=== PATIENT | male | born 1960 | race Caucasian/White ===

== ENCOUNTER → 2016-12-18 | Outpatient (CLI) | payer OTHER ==
[2016-12-18 12:15] VITALS: BP 170/96; PULSE 101; RESP 16; TEMP 98.1
--- NOTE | 2016-12-18 12:56 | P.PN ---
Subjective This is follow-up visit for this patient with a history of severe and chronic right knee pain and, right shoulder pain secondary to osteoarthritis of the right knee, and he was seen Dr. Mathis orthopedic surgeon and he recommended right total knee replacement, patient had injection in the knee, and this provided her with temporary relief, and is currently on pain medications 1- [place] 7.5/325 every 6 hours 2- naproxen 500 mg twice a day 3- voluntaren gel Patient denies any side effects of the medication, denies excessive drowsiness or sleepiness, denies suicidal ideation, and reports that the current pain medication is NOT helping To control the pain and improve activity of daily living Physical Examinations : 1-[place] : Cooperative , not in acute distress . 2-HEENT : nech ; supple , no Lymphadenopathy , no Thyromegaly , normal thyroid size . eyes : no ptosis , no icterus, no photophobia . ENT : normal of hearing , normal oropharynx , no Thrush . 3- Respiratory : Chest clear to auscultations Bilaterally , no wheezing , no Rhonchi . 4- Cardiovascular : regular rate and rhythem , S1 , S2 , no S3 , no S4. 5- Gastrointestinal : abdomen soft no tenderness , bowel sounds positive all four quadrents , no organomegally . 6- Genitourinary : Defferred . 7- neurologic : Cranial nerve II to XII intact , no focal neurological deffecit . 8-psychatric : alert , oriented X 3 , appropriate affect , intact judgment and insight . 9-Lymphatic : no Lymphadenopathy . 10- musculoskeltal : Decreased range of motion,(flexion/extension) in the right knee secondary to pain, and tenderness over the medial aspect of the right knee Assessment and plan = -Chronic right knee pain secondary to osteoarthritis -chronic and current use of high-risk medication (Opioids). The patient was counseled about risk of opioid use, psychological risk associated with opioids and was orally counseled to not overuse , abuse , divert ,or sell dictations to take medications as prescribed only , and to restore medication in safe location , and patient counseled against driving while using narcotic medications, and also not to use alcohol or any illicit recreational drugs the patient's verbalized understanding that the lack of compliance will result in failure to renew narcotic prescription and possible discharge from the clinic - diagnoses, prognosis, and treatment options including but not limited to physical therapy, surgical interventions, interventional therapies and medication management including narcotics and adjuvant medication were discussed with the patient and all questions answered to the patient's satisfaction. -medication refile =1- [place] 7.5/325 every 6 hours dispense 60 with 1 refill 2- naproxen 500 mg dispense 60 with 1 refill 3-naproxen gel 100 mg dispense refill -procedure= patient could benefit from diagnostic genitourinary nerve block and if it is positive we can proceed with the radiofrequency ablation of the right genicular nerves Objective - Vital Signs Vital signs: Vital Signs Temp 98.1 F 12/18/16 12:03 Pulse 101 H 12/18/16 12:03 Resp 16 12/18/16 12:03 BP 170/96 12/18/16 12:03 Pulse Ox Intake & Output 12/17/16 12/18/16 12/18/16 18:59 06:59 18:59 Weight 72.575 kg
== END | disposition home or self-care (01) ==
LOC: PNWHC3 11:31
PROVIDERS: ATTEND Specialist
DX: M17.11 Unilateral primary osteoarthritis, right knee (principal); Z79.891 Long term (current) use of opiate analgesic
CPT/HCPCS: 99211

== ENCOUNTER 2016-12-23 06:18 | Day surgery (SDC) | payer OTHER ==
[2016-12-19 11:21] VITALS: BMI 27.4
[~2016-12-23 06:18] MED LIST: LACTATED RINGERS 1,000 ML IV SCH
[2016-12-23 06:43] VITALS: RESP 18; TEMP 98
[2016-12-23] MEDS ORDERED: MIDAZOLAM 2 MG/2 ML VIAL ONE (07:52)
[2016-12-23] MEDS ORDERED: fentaNYL (PF) 50 MCG/ML 2 ML AMP ONE (07:52)
[2016-12-23] MEDS ORDERED: TRIAMCINOLONE ACETONIDE 40 MG/ML 1 ML VIAL ONE (07:52)
[2016-12-23] MEDS ORDERED: BUPIVACAINE (PF) 0.75% 30 ML VIAL ONE (07:52)
--- NOTE | 2016-12-23 08:19 | P.PCN ---
Date of Procedure: 12/23/16 Procedure(s) Performed: Operation= Right genicular nerves block under fluoroscopy guidance. (Total of 3 nerves were blocked ) Preoperative diagnoses=1- genicular neuralgia. 2-persistent knee pain secondary to knee osteoarthritis Postoperative diagnoses= same as preop. Condition= stable. Complications=none. Anesthesia= IV sedation with Versed 2 mg and fentanyl 100 g, and local infiltration with lidocaine 1% 3 mL. Description of the procedure= risk and benefit from the procedure discussed with the patient and he agreed with the preceding including but not limited to risk of infection and bleeding not complete pain relief and ALLERGIC reaction to the medication, patient taken to the operating room placed in supine position or standard monitors applied to the patient then after induction of anesthesia, the area prepped with chlorhexidine 3, then under fluoroscopy guidance and after using lidocaine 1% for skin and subcutaneous tissue infiltrations using 22-gauge Quincke-type spinal needle first needle advanced and placed at the superior medial epicondyle of the Right femur and the needle tip was in direct contact with the periosteum then 2 ML of Marcaine 0.5% mixed with 10 mg of Kenalog injected after negative aspiration, there was no paresthesia during the injection, then another 22 gauge spinal needle advanced at the superior lateral epicondyle of the Right femur, and the needle was in direct contact with the periosteum of the lateral epicondyle, then after negative aspiration for heme, and there was no paresthesia during the injection total of 2 ML of Marcaine 0.5% mixed with 10 mg of Kenalog injected after negative aspiration, and then another needle advanced and placed at the distal medial epicondyle of the Right tibia ,and the needle tip was placed at the direct contact on the periosteum of the medial epicondyle of the Right tibia, and then after negative aspiration for heme and there was no paresthesia during the injection 2 ML of Marcaine 0.5% mixed with 20 mg of Kenalog injected after negative aspiration patient tolerated the procedure well without any complication and will follow up with the pain clinic in a few weeks
[2016-12-23 08:41] VITALS: BP 130/80; PULSE 64
--- NOTE | 2016-12-23 10:20 | FL ---
Fluoroscopy HISTORY: Pain 16 seconds fluoroscopy time supplied to the referring clinician. 4 intraoperative C-arm images docum ent the procedure. See dictated report from anesthesia.
== END 2016-12-23 08:51 | disposition home or self-care (01) ==
LOC: ORPAIN 06:18
PROVIDERS: ATTEND Specialist
DX: G58.8 Other specified mononeuropathies (principal); M17.9 Osteoarthritis of knee, unspecified; Z88.0 Allergy status to penicillin
CPT/HCPCS: 64450; J2250; J3301; J3010

== ENCOUNTER 2017-01-19 06:19 | Day surgery (SDC) | payer OTHER ==
[2017-01-15 16:09] VITALS: BMI 27.4
[2017-01-19] MEDS ORDERED: LACTATED RINGERS 1,000 ML IV SCH (07:15)
[2017-01-19 07:17] VITALS: RESP 16; TEMP 97.7
[2017-01-19] MEDS ORDERED: MIDAZOLAM 2 MG/2 ML VIAL ONE (08:09)
[2017-01-19] MEDS ORDERED: BUPIVACAINE (PF) 0.5% 30 ML VIAL ONE (08:09)
[2017-01-19] MEDS ORDERED: fentaNYL (PF) 50 MCG/ML 2 ML AMP ONE (08:09)
[2017-01-19] MEDS ORDERED: TRIAMCINOLONE ACETONIDE 40 MG/ML 1 ML VIAL ONE (08:09)
[2017-01-19] MEDS ORDERED: IV FLUID CONTINUATION 1,000 ML IV ONE (08:32)
[2017-01-19 08:50] VITALS: BP 101/75; PULSE 78
--- NOTE | 2017-01-19 09:15 | P.PCN ---
Date of Procedure: 01/19/17 Surgeon: Anthony Baker Pathology: none sent Condition: stable Disposition: PACU Description of Procedure: PREOPERATIVE DIAGNOSIS: chronic knee pain due to OA; genicular neuralgia POSTOPERATIVE DIAGNOSIS: same PROCEDURE DESCRIPTION: Patient presents for right knee genicular NB under fluoroscopy. The procedure is performed using fluoroscopic guidance during needle placement to assure proper position and maximize safety. No use of blood thinners. ANESTHESIA: Local with 1% lidocaine; conscious sedation EBL: Minimal PROCEDURE INDICATION: Patient with persistent knee pain due to genicular neuralgia and knee osteoarthritis, here for diagnostic genicular NB. Pt does not take any blood thinning medications. PROCEDURE DESCRIPTION: The patient was seen and identified in the preoperative area. Risks, benefits, complications, and alternatives were discussed with the patient (including but not limited to incomplete pain relief, bleeding, infection, nerve damage, and allergies to medications), the patient agreed to proceed with the procedure and signed the consent after all questions were answered. Patient was taken to the OR and time out was completed to verify proper patient, position, laterality of pain, and allergies. Pt was placed in the supine position and a pillow was placed under the right knee to induce flexion. The right knee was prepped and draped in the usual sterile fashion. Using AP fluoroscopic guidance, the right knee was identified as were the areas of the superior medial epicondyle of the right femur, superior lateral epicondyle of the right femur, and distal medial epicondyle of the right tibia. Using lidocaine 1% for skin and subcutaneous tissue infiltrations, these three areas were accessed using 22-gauge Quincke-type 3.5-inch spinal needles and the needle tips were placed directly on the periosteum at all three locations. Lateral view fluoroscopy demonstrated that the needles were approximately long term through the leg and the tips of the needles were at roughly the long term point of the bone on both the femur and the tibia. After negative aspiration for heme and in the absence of paresthesias, 2 ml of the 6 ml mixture of 5 ml 0.5% PF bupivacaine and 40 mg Kenalog was injected at each site. [place] were withdrawn intact. At the end of the procedure, the skin was cleansed and bandages were applied. COMPLICATIONS: None. DISPOSITION/PLAN: The patient taken to the recovery area after the procedure in a stable condition for observation. Patient was reexamined prior to discharge and there were no issues. Patient was discharged home, accompanied by an adult, after meeting discharged criteria. Discharge instructions were give to the patient by the staff. Patient was specifically instructed not to drive today and to rest for the rest of the day. If he gets relief from this procedure, he will follow up for right genicular RFA.
--- NOTE | 2017-01-19 12:02 | FL ---
Fluoroscopy HISTORY: Pain 6 seconds fluoroscopy time supplied to the referring clinician. 2 intraoperative C-arm images docume nt the procedure. See dictated report from anesthesia.
== END 2017-01-19 09:22 | disposition home or self-care (01) ==
LOC: ORPAIN 06:19
PROVIDERS: ATTEND Anesthesiology
DX: Z91.09 Other allergy status, other than to drugs and biological substances (principal)
CPT/HCPCS: 64450; 99152; J2250; J3301; J3010

== ENCOUNTER → 2017-02-11 | Outpatient (CLI) | payer OTHER ==
[2017-02-11 13:18] VITALS: BP 158/100; PULSE 88; RESP 18; TEMP 98.4
--- NOTE | 2017-02-11 13:38 | P.PN ---
Subjective This is follow-up visit for this patient with a history of severe and chronic right knee pain, diagnosed with osteoarthritis Of the right knee,( right genicular nerve neuralgia) with done right genicular nerves block x2 and he had more than 50% Improvement in his right knee pain , and is currently on pain medications [place] 10/325 every 12 hours Naproxen 500 mg twice a day when necessary, we'll tallying gently applied to the right Patient denies any side effects of the medication, denies excessive drowsiness or sleepiness, denies suicidal ideation, and reports that the current pain medication is helping To control the pain and improve activity of daily living Physical Examinations : 1-[place] : Cooperative , not in acute distress . 2-HEENT : nech ; supple , no Lymphadenopathy , no Thyromegaly , normal thyroid size . eyes : no ptosis , no icterus, no photophobia . ENT : normal of hearing , normal oropharynx , no Thrush . 3- Respiratory : Chest clear to auscultations Bilaterally , no wheezing , no Rhonchi . 4- Cardiovascular : regular rate and rhythem , S1 , S2 , no S3 , no S4. 5- Gastrointestinal : abdomen soft no tenderness , bowel sounds positive all four quadrents , no organomegally . 6- Genitourinary : Defferred . 7- neurologic : Cranial nerve II to XII intact , no focal neurological deffecit . 8-psychatric : alert , oriented X 3 , appropriate affect , intact judgment and insight . 9-Lymphatic : no Lymphadenopathy . 10- musculoskeltal : exams of the cervical spine = motor strength normal bilateral upper extremities facet loading test cervical area positive. exams of the Lumber spine = motor strength lower extremities ,thigh and legs .5/5 deep tendon reflexes : normal Knee Jerk , normal ankle Jerk . lumber facet Loading Test positive strait leg raising test positive at 30 degree , RT ,LT , Fabere test positive RT and positive LT . Range of motion: Range of motion in flexion of the lumbar spine 30 degrees Range of motion range of motion of extension of the lumbar spine 10 Sever tenderness over the Sacroiliac joint on the Right , and Left side Assessment and plan = On the right knee pain secondary to osteoarthritis of the right knee , patient had good results after the genicular nerves block x2 He will be good candidate to have radiofrequency ablation of the right genicular nerves - chronic and current use of high-risk medication (Opioids). The patient was counseled about risk of opioid use, psychological risk associated with opioids and was orally counseled to not overuse , divert,or sell dictations to take medications as prescribed only , and to restore medication in safe location , and the patient counseled against driving while using narcotic medications, and also not to use alcohol or any illicit recreational drugs, the patient's verbalized understanding that the lack of compliance will result in failure to renew narcotic prescription and possible discharge from the clinic - diagnoses, prognosis, and treatment options including but not limited to physical therapy, surgical interventions, interventional therapies , and medication management including narcotics and adjuvant medication were discussed with the patient and all The questions answered -medication management =1-[place] 10/325 every 12 hours dispense 60 with 1 refill. 2-naproxen 500 mg twice a day dispense 60 with one refill 3-voltaren gel -procedure= radiofrequency ablation right genicular nerves under fluoroscopy guidance Objective - Vital Signs Vital signs: Vital Signs Temp 98.4 F 02/11/17 13:10 Pulse 88 02/11/17 13:10 Resp 18 02/11/17 13:10 BP 158/100 02/11/17 13:10 Pulse Ox Intake & Output 02/10/17 02/11/17 02/11/17 18:59 06:59 18:59 Weight 72.575 kg
== END ==
LOC: PNWHC3 12:06
PROVIDERS: ATTEND Specialist
DX: M17.11 Unilateral primary osteoarthritis, right knee (principal); G89.29 Other chronic pain; Z79.891 Long term (current) use of opiate analgesic
CPT/HCPCS: 99211

== ENCOUNTER → 2017-04-08 | Outpatient (CLI) | payer OTHER ==
[2017-04-08 14:41] VITALS: BP 160/97; PULSE 90; RESP 16
--- NOTE | 2017-04-08 21:26 | P.PN ---
Subjective Principal diagnosis: This is follow-up visit for this patient with a history of severe and chronic right knee pain, we have done interventional pain management injection, , RFA of the right genicular nerves He had some benefit , pain improved but he continued to have right knee pain and is currently on pain medications 1-naproxen 500 mg twice a day when necessary 2-[place] 7.5/325 every 8 hours 3-Voltaren gel Patient denies any side effects of the medication, denies excessive drowsiness or sleepiness, denies suicidal ideation, and reports that the current pain medication is helping To control the pain and improve activity of daily living Patient denies any motor or sensory deficit , patient denies any fever or night sweats, denies any change in the bowel movements or urination Physical Examinations : 1-Constitutiona : Cooperative , not in acute distress . 2-HEENT : nech ; supple , no Lymphadenopathy , no Thyromegaly , normal thyroid size . eyes : no ptosis , no icterus, no photophobia . ENT : normal of hearing , normal oropharynx , no Thrush . 3- Respiratory : Chest clear to auscultations Bilaterally , no wheezing , no Rhonchi . 4- Cardiovascular : regular rate and rhythem , S1 , S2 , no S3 , no S4. 5- Gastrointestinal : abdomen soft no tenderness , bowel sounds positive all four quadrents , no organomegally . 6- Genitourinary : Defferred . 7- neurologic : Cranial nerve II to XII intact , no focal neurological deffecit . 8-psychatric : alert , oriented X 3 , appropriate affect , intact judgment and insight . 9-Lymphatic : no Lymphadenopathy . 10- musculoskeltal : exams of the Lumber spine = motor strength lower extremities ,thigh and legs .5/5 Flexion and extension of the right knee associated with pain. Assessment and plan = - Chronic low back pain secondary to lumbar degenerative disc disease , lumbar spondylosis with facet arthropathy without myelopathy , - chronic and current use of high-risk medication (Opioids). The patient was counseled about risk of opioid use, psychological risk associated with opioids and was orally counseled to not overuse , divert,or sell dictations to take medications as prescribed only , and to restore medication in safe location , and the patient counseled against driving while using narcotic medications, and also not to use alcohol or any illicit recreational drugs, the patient's verbalized understanding that the lack of compliance will result in failure to renew narcotic prescription and possible discharge from the clinic - diagnoses, prognosis, and treatment options including but not limited to physical therapy, surgical interventions, interventional therapies , and medication management including narcotics and adjuvant medication were discussed with the patient, prescription refilled for [place] 7.5/325 every 6 hours dispensed 60 with 1 refill, naproxen 500 mg dispense 60 with 1 refill, and carrying gel 2 g to the right knee twice a day with one refill, and he will follow up with the pain clinic in 2 months Objective - Vital Signs Vital signs: Vital Signs Temp Pulse 90 04/08/17 14:35 Resp 16 04/08/17 14:35 BP 160/97 04/08/17 14:35 Pulse Ox 94 L 04/08/17 14:35 Intake & Output 04/08/17 04/08/17 04/09/17 06:59 18:59 06:59 Weight 72.575 kg
== END | disposition home or self-care (01) ==
LOC: PNWHC3 13:46
PROVIDERS: ATTEND Specialist
DX: M51.36 Other intervertebral disc degeneration, lumbar region (principal); M47.816 Spondylosis without myelopathy or radiculopathy, lumbar region; M46.86 Other specified inflammatory spondylopathies, lumbar region
CPT/HCPCS: 99211

== ENCOUNTER → 2017-06-03 | Outpatient (CLI) | payer OTHER ==
[2017-06-03 11:31] VITALS: BP 171/104; PULSE 95; RESP 16; TEMP 97.7
--- NOTE | 2017-06-03 11:44 | P.PN ---
Progress Note - Text Patient returns for follow-up for chronic knee pain without radiation. Patient recently underwent right genicular RFA, which provided some relief for roughly 1 month's interval. Patient continues on [place], naproxen, and Voltaren gel medications for pain with good relief. Patient denies adverse drug effects from medications. Today, pt denies new-onset weakness, bowel/bladder incontinence, or any other signs or symptoms of cauda equina syndrome. There are no signs of acute intoxication, and no indications of medication diversion or overuse. In addition to above, 13-point review of systems is also negative for chest pain , shortness of breath, changes in vision, changes in hearing, new onset weakness , abdominal pain, diarrhea, extreme fatigue, malaise, fever, skin changes, homicidal or suicidal ideation, or bowel or bladder incontinence. Vital Signs: Reviewed in EMR Gen: WDWN, AAOx3, NAD HEENT: NCAT, EOMI, hearing grossly normal Pulm: resp unlabored Neck: supple, trachea midline Lower extremity: decreased ROM R knee flexion and extension due to pain Neuro: CN II-XII grossly intact, muscle strength lower extremities PRESERVED Imaging: Reviewed in EMR Assessment: 1. knee OA 2. genicular neuralgia 3. chronic pain syndrome Plan: 1. Explanation: Opioid and psychological risk scores were reviewed. Diagnoses , prognoses, and multiple treatment options including but not limited to physical therapy, interventional therapies, adjuvant medical therapies, narcotic medication therapies, and surgery were discussed with the patient and all questions were answered to the patient's satisfaction. 2. Opioid agreement: Patient has previously signed narcotic agreement, and was orally counseled to not overuse, abuse, divert, or cell medications, and to take them as prescribed by only 1 healthcare provider. The patient was also counseled to store opioid medications in a safe and preferably locked location. Patient was also counseled against driving or operating heavy equipment while using narcotic medications and also to not use alcohol or any illicit or recreational drugs. The patient verbalized understanding that lack of compliance with any of the above and likely result in failure to renew narcotic prescriptions, possible discharge from the clinic, and possible legal ramifications thereafter if indicated. 3. Counseling: The patient was counseled extensively on SMOKING CESSATION, BODY MASS INDEX, EXERCISE. Specifically, the patient was instructed regarding the importance of smoking cessation, weight control, and exercise in the context of both chronic pain and overall health. 4. Procedures: none for now 5. Consultations: None 6. Investigations: UDS today 7. Medications: [place] 7.5/325 #60 with no refills, refilled naproxen and Voltaren gel with one refill 8. Disposition: f/u for re-eval in 4 weeks PQRS measures: 1-Patient's medications are documented in the chart. 2-Tobacco use is positive, counseling given 3-Patient has not had a pneumococcal vaccine. 4-Advanced care planning discussed, patient unable to give. 5-Opioid contract signed with the patient. 6-Pain positive, follow-up visit or procedure scheduled 7-Patient's blood pressure measured and documented, and patient will follow up with the primary care due to hypertension. 8-Patient's weight was measured, and body mass index ABOVE the normal limits, and counseling was done. Patient instructed to follow up with PCP. 9-Patient WAS identified as an unhealthy alcohol user and counseled not to use opioids with alcohol.
== END ==
LOC: PNWHC3 10:56
PROVIDERS: ATTEND Anesthesiology
DX: M17.9 Osteoarthritis of knee, unspecified (principal); Z79.891 Long term (current) use of opiate analgesic; Z79.899 Other long term (current) drug therapy
CPT/HCPCS: 80307; G0480; G0463; 80356; 99211

== ENCOUNTER → 2017-07-01 | Outpatient (CLI) | payer OTHER ==
[2017-07-01 14:20] VITALS: BP 146/95; PULSE 80; RESP 18; TEMP 98.5
--- NOTE | 2017-07-01 14:44 | P.PN ---
Progress Note - Text Patient returns for follow-up for chronic knee pain without radiation. Patient underwent right genicular RFA in February, which provided some relief for roughly 1 month's interval. Patient continues on [place], naproxen, and Voltaren gel medications for pain with good relief. Patient denies adverse drug effects from medications. Today, pt denies new-onset weakness, bowel/bladder incontinence, or any other signs or symptoms of cauda equina syndrome. There are no signs of acute intoxication, and no indications of medication diversion or overuse. In addition to above, 13-point review of systems is also negative for chest pain , shortness of breath, changes in vision, changes in hearing, new onset weakness , abdominal pain, diarrhea, extreme fatigue, malaise, fever, skin changes, homicidal or suicidal ideation, or bowel or bladder incontinence. Vital Signs: Reviewed in EMR Gen: WDWN, AAOx3, NAD HEENT: NCAT, EOMI, hearing grossly normal Pulm: resp unlabored Neck: supple, trachea midline Lower extremity: decreased ROM R knee flexion and extension due to pain Neuro: CN II-XII grossly intact, muscle strength lower extremities PRESERVED Imaging: Reviewed in EMR Assessment: 1. knee OA 2. genicular neuralgia 3. chronic pain syndrome Plan: 1. Explanation: Opioid and psychological risk scores were reviewed. Diagnoses , prognoses, and multiple treatment options including but not limited to physical therapy, interventional therapies, adjuvant medical therapies, narcotic medication therapies, and surgery were discussed with the patient and all questions were answered to the patient's satisfaction. 2. Opioid agreement: Patient has previously signed narcotic agreement, and was orally counseled to not overuse, abuse, divert, or cell medications, and to take them as prescribed by only 1 healthcare provider. The patient was also counseled to store opioid medications in a safe and preferably locked location. Patient was also counseled against driving or operating heavy equipment while using narcotic medications and also to not use alcohol or any illicit or recreational drugs. The patient verbalized understanding that lack of compliance with any of the above and likely result in failure to renew narcotic prescriptions, possible discharge from the clinic, and possible legal ramifications thereafter if indicated. 3. Counseling: The patient was counseled extensively on SMOKING CESSATION, BODY MASS INDEX, EXERCISE. Specifically, the patient was instructed regarding the importance of smoking cessation, weight control, and exercise in the context of both chronic pain and overall health. 4. Procedures: none for now 5. Consultations: Dr. Haley, possible TKA 6. Investigations: UDS negative, but appropriate 7. Medications: [place] 7.5/325 #60 with one refill, refilled naproxen and Voltaren gel with one refill; prescribed cane for knee OA 8. Disposition: f/u for re-eval in 8 weeks after appointment with orthopedic surgeon PQRS measures: 1-Patient's medications are documented in the chart. 2-Tobacco use is positive, counseling given 3-Patient has not had a pneumococcal vaccine. 4-Advanced care planning discussed, patient unable to give. 5-Opioid contract signed with the patient. 6-Pain positive, follow-up visit or procedure scheduled 7-Patient's blood pressure measured and documented, and patient will follow up with the primary care due to hypertension. 8-Patient's weight was measured, and body mass index ABOVE the normal limits, and counseling was done. Patient instructed to follow up with PCP. 9-Patient WAS identified as an unhealthy alcohol user and counseled not to use opioids with alcohol.
== END | disposition home or self-care (01) ==
LOC: PNWHC3 13:57
PROVIDERS: ATTEND Anesthesiology
DX: M17.10 Unilateral primary osteoarthritis, unspecified knee (principal); G58.8 Other specified mononeuropathies; G89.4 Chronic pain syndrome
CPT/HCPCS: 99211

== ENCOUNTER → 2017-08-26 | Outpatient (CLI) | payer OTHER ==
[2017-08-26 13:29] VITALS: BP 166/103; PULSE 109; RESP 18; TEMP 98.5
--- NOTE | 2017-08-26 13:38 | P.PN ---
Progress Note - Text Progress Note Date: 08/26/17 Patient returns for follow-up for chronic knee pain without radiation. Patient underwent right genicular RFA in February, which provided some relief for roughly 1 month's interval. Patient continues on [place], naproxen, and Voltaren gel medications for pain with good relief; patient has not yet seen an orthopedic surgeon because he has not been able to find one who accepts his insurance. Patient denies adverse drug effects from medications. Today, pt denies new- onset weakness, bowel/bladder incontinence, or any other signs or symptoms of cauda equina syndrome. There are no signs of acute intoxication, and no indications of medication diversion or overuse. In addition to above, 13-point review of systems is also negative for chest pain , shortness of breath, changes in vision, changes in hearing, new onset weakness , abdominal pain, diarrhea, extreme fatigue, malaise, fever, skin changes, homicidal or suicidal ideation, or bowel or bladder incontinence. Vital Signs: Reviewed in EMR Gen: WDWN, AAOx3, NAD HEENT: NCAT, EOMI, hearing grossly normal Pulm: resp unlabored Neck: supple, trachea midline Lower extremity: decreased ROM R knee flexion and extension due to pain, with greater pain in flexion Neuro: CN II-XII grossly intact, muscle strength lower extremities PRESERVED Imaging: Reviewed in EMR Assessment: 1. knee OA 2. genicular neuralgia 3. chronic pain syndrome Plan: 1. Explanation: Opioid and psychological risk scores were reviewed. Diagnoses , prognoses, and multiple treatment options including but not limited to physical therapy, interventional therapies, adjuvant medical therapies, narcotic medication therapies, and surgery were discussed with the patient and all questions were answered to the patient's satisfaction. 2. Opioid agreement: Patient has previously signed narcotic agreement, and was orally counseled to not overuse, abuse, divert, or cell medications, and to take them as prescribed by only 1 healthcare provider. The patient was also counseled to store opioid medications in a safe and preferably locked location. Patient was also counseled against driving or operating heavy equipment while using narcotic medications and also to not use alcohol or any illicit or recreational drugs. The patient verbalized understanding that lack of compliance with any of the above and likely result in failure to renew narcotic prescriptions, possible discharge from the clinic, and possible legal ramifications thereafter if indicated. 3. Counseling: The patient was counseled extensively on SMOKING CESSATION, BODY MASS INDEX, EXERCISE. Specifically, the patient was instructed regarding the importance of smoking cessation, weight control, and exercise in the context of both chronic pain and overall health. 4. Procedures: none for now 5. Consultations: orthopedic surgery, possible TKA 6. Investigations: repeat UDS today 7. Medications: [place] 7.5/325 #60 with one refill, refilled naproxen and Voltaren gel with two refills 8. Disposition: f/u for re-eval in 8 weeks after appointment with orthopedic surgeon PQRS measures: 1-Patient's medications are documented in the chart. 2-Tobacco use is positive, counseling given 3-Patient has not had a pneumococcal vaccine. 4-Advanced care planning discussed, patient unable to give. 5-Opioid contract signed with the patient. 6-Pain positive, follow-up visit or procedure scheduled 7-Patient's blood pressure measured and documented, and patient will follow up with the primary care due to hypertension. 8-Patient's weight was measured, and body mass index ABOVE the normal limits, and counseling was done. Patient instructed to follow up with PCP. 9-Patient WAS identified as an unhealthy alcohol user and counseled not to use opioids with alcohol.
== END | disposition home or self-care (01) ==
LOC: PNWHC3 13:14
PROVIDERS: ATTEND Anesthesiology
DX: M17.12 Unilateral primary osteoarthritis, left knee (principal); M17.11 Unilateral primary osteoarthritis, right knee; G58.8 Other specified mononeuropathies; G89.4 Chronic pain syndrome; Z79.891 Long term (current) use of opiate analgesic
CPT/HCPCS: 80307; G0480 ×2; G0463; 80356; 80364; 99211

== ENCOUNTER → 2017-10-21 | Outpatient (CLI) | payer OTHER ==
--- NOTE | 2017-10-21 13:49 | P.PN ---
Progress Note - Text Progress Note Date: 10/21/17 Patient returns for follow-up for chronic knee pain without radiation. Patient underwent right genicular RFA in February, which provided some relief for roughly 1 month's interval. Patient continues on [place], naproxen, and Voltaren gel medications for pain with good relief; patient is now on a waiting list to see an orthopedic surgeon for his knee, as Dr. Haley' office does not accept his insurance. Patient denies adverse drug effects from medications. Today, pt denies new-onset weakness, bowel/bladder incontinence, or any other signs or symptoms of cauda equina syndrome. There are no signs of acute intoxication, and no indications of medication diversion or overuse. In addition to above, 13-point review of systems is also negative for chest pain , shortness of breath, changes in vision, changes in hearing, new onset weakness , abdominal pain, diarrhea, extreme fatigue, malaise, fever, skin changes, homicidal or suicidal ideation, or bowel or bladder incontinence. Vital Signs: Reviewed in EMR Gen: WDWN, AAOx3, NAD HEENT: NCAT, EOMI, hearing grossly normal Pulm: resp unlabored Neck: supple, trachea midline Lower extremity: decreased ROM R knee flexion and extension due to pain Neuro: CN II-XII grossly intact, muscle strength lower extremities PRESERVED Imaging: Reviewed in EMR Assessment: 1. knee OA 2. genicular neuralgia 3. chronic pain syndrome Plan: 1. Explanation: Opioid and psychological risk scores were reviewed. Diagnoses , prognoses, and multiple treatment options including but not limited to physical therapy, interventional therapies, adjuvant medical therapies, narcotic medication therapies, and surgery were discussed with the patient and all questions were answered to the patient's satisfaction. 2. Opioid agreement: Patient has previously signed narcotic agreement, and was orally counseled to not overuse, abuse, divert, or cell medications, and to take them as prescribed by only 1 healthcare provider. The patient was also counseled to store opioid medications in a safe and preferably locked location. Patient was also counseled against driving or operating heavy equipment while using narcotic medications and also to not use alcohol or any illicit or recreational drugs. The patient verbalized understanding that lack of compliance with any of the above and likely result in failure to renew narcotic prescriptions, possible discharge from the clinic, and possible legal ramifications thereafter if indicated. 3. Counseling: The patient was counseled extensively on SMOKING CESSATION, BODY MASS INDEX, EXERCISE. Specifically, the patient was instructed regarding the importance of smoking cessation, weight control, and exercise in the context of both chronic pain and overall health. 4. Procedures: repeat right genicular RFA 5. Consultations: orthopedic surgery, possible TKA 6. Investigations: none 7. Medications: [place] 7.5/325 #60 with one refill, refilled naproxen and Voltaren gel with two refills 8. Disposition: f/u for procedure as scheduled PQRS measures: 1-Patient's medications are documented in the chart. 2-Tobacco use is positive, counseling given 3-Patient has not had a pneumococcal vaccine. 4-Advanced care planning discussed, patient unable to give. 5-Opioid contract signed with the patient. 6-Pain positive, follow-up visit or procedure scheduled 7-Patient's blood pressure measured and documented, and patient will follow up with the primary care due to hypertension. 8-Patient's weight was measured, and body mass index ABOVE the normal limits, and counseling was done. Patient instructed to follow up with PCP. 9-Patient WAS identified as an unhealthy alcohol user and counseled not to use opioids with alcohol.
[2017-10-21 13:50] VITALS: BP 173/87; PULSE 87; RESP 18; TEMP 98.2
== END | disposition home or self-care (01) ==
LOC: PNWHC3 13:16
PROVIDERS: ATTEND Anesthesiology
DX: M17.11 Unilateral primary osteoarthritis, right knee (principal); M79.2 Neuralgia and neuritis, unspecified
CPT/HCPCS: 99211

== ENCOUNTER 2017-12-02 06:18 | Day surgery (SDC) | payer OTHER ==
[2017-12-02] MEDS ORDERED: LACTATED RINGERS 1,000 ML IV SCH (07:23)
[2017-12-02 07:27] VITALS: TEMP 98.1
[2017-12-02] MEDS ORDERED: LIDOCAINE 1% 20 ML VIAL (10MG/ML) FOR IV START INTRADERMA ONE (07:37)
--- NOTE | 2017-12-02 08:20 | P.PCN ---
Date of Procedure: 12/02/17 Procedure(s) Performed: Preoperative diagnoses=1- sever osteoarthritis Right Knee 2-Right knee arthalgia Postoperative diagnoses= same as preoperative diagnoses. Operations= Radiofrequency thermocoagulation of the Right Genicular nerves ( total of 3 nerves ) Condition= stable. Complications= none. Anesthesia= moderate sedation with intravenous Versed 2 mg and fentanyl 200 micrograms, local infiltration of the skin and subcu tissue with lidocaine 1% 3 mL. Description of the procedure= the risk and benefits and alternative of the procedure discussed with the patient and agreed with proceeding, including but not limited to risk of infection and bleeding not complete pain relief ALLERGIC reaction to the medication, patient signed the consent and all questions discussed with the patient and answer patient taken to the operating room placed in the OR table in supine position, IV medication given to minimize and excitedly and vital signs were monitored and remained stable throughout the procedure was placed under the knee, and the area prepped with chlorhexidine 3 been under fluoroscopy guidance and after using lidocaine 1% for skin and subcu tissue infiltrations 18-gauge 10 mm radiofrequency active tip ( VENUM ) needle advanced slowly under fluoroscopy on the first needle placed at the superior medial epicondyle of the femur and the needle tip was in direct contact with the periosteum ,then another 18-gauge radiofrequency active tip needle 10 mm , needle was advanced slowly and placed at the superior lateral epicondyle of the femur and the needle was in the direct contact with the periosteum of the lateral epicondyle, Then third 18-gauge radiofrequency active tip needle 10 mm advanced slowly under fluoroscopy and placed at the distal medial epicondyle of the tibia and the needle tip was placed under direct contact of the periosteum of the medial epicondyle of the tibia , and the needles placement confirmed under fluoroscopy with the AP and lateral view and after appropriate needle placement confirmed and then we did the sensory stimulation testing at 50 mHz and 0 to 1 volt , was positive for localized to the knee area , then we did the motor testing at 2 Hz and 0 to 2.5 volts , there was no contractions in the muscle of the lower extremity then all the sides underwent radiofrequency thermocoagulation at 80C for 90 seconds after injection HALF mL PRESERVATIVE-free lidocaine 1% and after the Thermocoagulation is done the cannulas removed and Marcaine 0.5% 5 ml and 40 mg of Kenalog mixed together , and 2 ml of the mixture injected at each needle after negative aspiration under was no paresthesia during the injection patient tolerated the procedure well and will follow up with the pain clinic in a few weeks
[2017-12-02] MEDS ORDERED: IV FLUID CONTINUATION 1,000 ML IV ONE ×2 (08:22)
--- NOTE | 2017-12-02 08:33 | FL ---
Fluoroscopy HISTORY: Pain 11 seconds fluoroscopy time supplied to the referring clinician. 4 intraoperative C-arm images docum ent the procedure. See dictated report from anesthesia.
[2017-12-02 08:40] VITALS: BP 152/87; PULSE 70; RESP 18
== END 2017-12-02 08:48 | disposition home or self-care (01) ==
LOC: ORPAIN 06:18
PROVIDERS: ATTEND Specialist
DX: M17.11 Unilateral primary osteoarthritis, right knee (principal); I10 Essential (primary) hypertension; Z88.0 Allergy status to penicillin
CPT/HCPCS: 64640 ×3; J2250; J3301; J3010; 99152

== ENCOUNTER → 2017-12-16 | Outpatient (CLI) | payer OTHER ==
[2017-11-25 23:03] VITALS: BMI 25.7
[2017-12-16 14:54] VITALS: BP 162/98; PULSE 114; RESP 16
--- NOTE | 2017-12-16 14:57 | P.PN ---
Progress Note - Text Progress Note Date: 12/16/17 Patient returns for follow-up for chronic knee pain without radiation. Patient underwent right genicular RFA two weeks ago, which has provided good relief since the procedure. Patient continues on [place], naproxen, and Voltaren gel medications for pain with good relief; patient still has not seen an orthopedic surgeon regarding his knee. Patient denies adverse drug effects from medications. Today, pt denies new-onset weakness, bowel/bladder incontinence, or any other signs or symptoms of cauda equina syndrome. There are no signs of acute intoxication, and no indications of medication diversion or overuse. In addition to above, 13-point review of systems is also negative for chest pain , shortness of breath, changes in vision, changes in hearing, new onset weakness , abdominal pain, diarrhea, extreme fatigue, malaise, fever, skin changes, homicidal or suicidal ideation, or bowel or bladder incontinence. Vital Signs: Reviewed in EMR Gen: WDWN, AAOx3, NAD HEENT: NCAT, EOMI, hearing grossly normal Pulm: resp unlabored Neck: supple, trachea midline Lower extremity: decreased ROM R knee flexion and extension due to pain Neuro: CN II-XII grossly intact, muscle strength lower extremities PRESERVED Imaging: Reviewed in EMR Assessment: 1. knee OA 2. genicular neuralgia 3. chronic pain syndrome Plan: 1. Explanation: Opioid and psychological risk scores were reviewed. Diagnoses , prognoses, and multiple treatment options including but not limited to physical therapy, interventional therapies, adjuvant medical therapies, narcotic medication therapies, and surgery were discussed with the patient and all questions were answered to the patient's satisfaction. 2. Opioid agreement: Patient has previously signed narcotic agreement, and was orally counseled to not overuse, abuse, divert, or cell medications, and to take them as prescribed by only 1 healthcare provider. The patient was also counseled to store opioid medications in a safe and preferably locked location. Patient was also counseled against driving or operating heavy equipment while using narcotic medications and also to not use alcohol or any illicit or recreational drugs. The patient verbalized understanding that lack of compliance with any of the above and likely result in failure to renew narcotic prescriptions, possible discharge from the clinic, and possible legal ramifications thereafter if indicated. 3. Counseling: The patient was counseled extensively on SMOKING CESSATION, BODY MASS INDEX, EXERCISE. Specifically, the patient was instructed regarding the importance of smoking cessation, weight control, and exercise in the context of both chronic pain and overall health. 4. Procedures: none for now 5. Consultations: orthopedic surgery, possible TKA 6. Investigations: none 7. Medications: [place] 7.5/325 #60 with one refill, refilled naproxen and Voltaren gel with two refills 8. Disposition: f/u in 8 weeks for re-eval. I told patient that he must find an orthopedic surgeon to have knee surgery. I have seen him four consecutive visits and this has not happened, and so I instructed him that I will begin decreasing his [place] at next visit if he does not take more proactive steps. He verbalized understanding. PQRS measures: 1-Patient's medications are documented in the chart. 2-Tobacco use is positive, counseling given 3-Patient has not had a pneumococcal vaccine. 4-Advanced care planning discussed, patient unable to give. 5-Opioid contract signed with the patient. 6-Pain positive, follow-up visit or procedure scheduled 7-Patient's blood pressure measured and documented, and patient will follow up with the primary care due to hypertension. 8-Patient's weight was measured, and body mass index ABOVE the normal limits, and counseling was done. Patient instructed to follow up with PCP. 9-Patient WAS identified as an unhealthy alcohol user and counseled not to use opioids with alcohol.
== END | disposition home or self-care (01) ==
LOC: PNWHC3 14:45
PROVIDERS: ATTEND Anesthesiology
DX: G89.4 Chronic pain syndrome (principal); M17.9 Osteoarthritis of knee, unspecified; M79.2 Neuralgia and neuritis, unspecified; Z79.891 Long term (current) use of opiate analgesic; Z79.1 Long term (current) use of non-steroidal anti-inflammatories (NSAID)
CPT/HCPCS: 99211

== ENCOUNTER → 2018-02-10 | Outpatient (CLI) | payer OTHER ==
[2018-02-10 13:56] VITALS: BP 149/104; PULSE 120; RESP 18
--- NOTE | 2018-02-10 14:28 | P.PN ---
Subjective Progress Note Date: 02/10/18 This is 57 years old male with a chronic history of severe right knee pain, secondary to osteoarthritis of the right, we have done diagnostic genicular nerve block which was positive and is on we did radiofrequency ablation of the right genicular nerve, and this helped his right knee pain significantly, currently patient complaining of severe left-sided low back pain, the pain increases with any activity, he denies any motor or sensory deficit, he denies any change in the abnormal blood or urination, no fever or night sweats, is currently on [place] 7.5/325 twice a day when necessary, naproxen for 40 twice a day, and Voltaren gel 1% to be applied to the right knee area Objective - Vital Signs Vital signs: Vital Signs Temp Pulse 120 H 02/10/18 13:50 Resp 18 02/10/18 13:50 BP 149/104 02/10/18 13:50 Pulse Ox 94 L 02/10/18 13:50 Intake & Output 02/09/18 02/10/18 02/10/18 18:59 06:59 18:59 Weight 68.039 kg - Exam Physical Examinations : 1-Constitutiona : Cooperative , not in acute distress . 2-HEENT : nech ; supple , no Lymphadenopathy , normal thyroid size . eyes : no ptosis , no icterus, no photophobia . ENT : normal of hearing , normal oropharynx , no Thrush . 3- Respiratory : Chest clear to auscultations Bilaterally , no wheezing , no Rhonchi . 4- Cardiovascular : regular rate and rhythem , S1 , S2 , no S3 , no S4. 5- Gastrointestinal : abdomen soft no tenderness , bowel sounds positive all four quadrents , no organomegally . 6- Genitourinary : Defferred . 7- neurologic : Cranial nerve II to XII intact , no focal neurological deffecit . 8-psychatric : alert , oriented X 3 , appropriate affect , intact judgment and insight . 9-Lymphatic : no Lymphadenopathy . 10- musculoskeltal : , Lumber spine = normal moter stegnth lower extremities ,thigh and legs .5/5 deep tendon reflexes : normal Knee Jerk , normal ankle Jerk . Flexion and extension of the right knee associated with pain lumber facet Loading Test positive strait leg raising test negative bilaterally Fabere test negative bilaterally Sever tenderness over the Sacroiliac joint on the Left side Assessment and Plan Plan: Assessment and plan=1-right knee osteoarthritis, status post radiofrequency ablation of the right genicular nerve, and this helped his right knee pain 2-left sacroiliitis. Patient will be good candidate to have left- sided sacroiliac joint steroid injection, patient will continue to use the same pain medication Prescription refill for [place] 7.5/325 every 12 hours dispense 60 with one refill, and naproxen for 40 twice a day dispense 60 with 1 refill [place] gel to be applied to the right knee and the left sacroiliac joint area twice a day Time with Patient: Less than 30
== END | disposition home or self-care (01) ==
LOC: PNWHC3 13:11
PROVIDERS: ATTEND Specialist
DX: M17.11 Unilateral primary osteoarthritis, right knee (principal); Z98.890 Other specified postprocedural states; M46.1 Sacroiliitis, not elsewhere classified; Z79.1 Long term (current) use of non-steroidal anti-inflammatories (NSAID)
CPT/HCPCS: 99211

== ENCOUNTER 2018-03-11 06:35 | Day surgery (SDC) | payer OTHER ==
[2018-03-08 12:56] VITALS: BMI 25.7
[2018-03-11 07:16] VITALS: RESP 16; TEMP 98.1
[2018-03-11] MEDS ORDERED: LIDOCAINE 1% 20 ML VIAL (10MG/ML) FOR IV START INTRADERMA ONE (07:20)
--- NOTE | 2018-03-11 08:49 | P.PCN ---
Date of Procedure: 03/11/18 Procedure(s) Performed: Preoperative diagnoses= 1-left sacroiliitis. Postoperative diagnoses= same as preoperative diagnosis. Procedure= Left sacroiliac joint steroid injection under fluoroscopic guidance. Anesthesia= moderate sedation with Versed 2 mg and fentanyl 100 micrograms and local infiltration with lidocaine 1% 2 ml Estimated blood loss=minimal. Procedure indication= the patient had a history of severe chronic low back pain , diagnosed with sacroiliitis and lumbar sacral facet arthropathy unresponsive to conservative treatment. Procedure description= the patient was seen and identified in the preoperative holding area, risks and benefits and alternative of the procedure and possible complications discussed with the patient, and he agreed with the preceding, patient signed the consent, an IV was started, and vital signs were monitored and were stable throughout the procedure, patient was placed in the prone position or table and the lumbosacral area was prepped and draped with a sterile fashion, vital signs were closely monitored during the procedure, the fluoroscopy camera was placed in the contralateral oblique view on the right sacroiliac joint and the lower part of the joint was identified, local infiltration of the skin and subcutaneous tissue with lidocaine 1% 2 mL then a 22-gauge Quincke-type spinal needle advanced slowly under fluoroscopy and placed in the posterior and inferior border of the left sacroiliac joint, placement confirmed with AP and lateral view, and after appropriate needle placement confirmed and after negative aspiration for heme and CSF and there was no paresthesia during the injection, 3 ml of Marcaine 0.5% and 40 mg of Kenalog injected after negative aspiration, the needle removed, Patient tolerated the procedure well without any complication, The patient returned to supine position after the back was cleaned and a Band- Aid applied, the patient transported to recovery room in stable condition and he was monitored for 30 minutes before he was discharged home and then patient was reexamined before going home and patient was discharged in stable condition and patient will follow up with the pain clinic in a few weeks
[2018-03-11] MEDS ORDERED: IV FLUID CONTINUATION 1,000 ML IV ONE (09:00)
[2018-03-11 09:14] VITALS: BP 124/83; PULSE 75
--- NOTE | 2018-03-11 11:14 | FL ---
Fluoroscopy HISTORY: Pain 2 seconds fluoroscopy time supplied to the referring clinician. 1 intraoperative C-arm images docume nt the procedure. See dictated report from anesthesia.
== END 2018-03-11 09:30 | disposition home or self-care (01) ==
LOC: ORPAIN 06:35
PROVIDERS: ATTEND Specialist
DX: M46.1 Sacroiliitis, not elsewhere classified (principal); I10 Essential (primary) hypertension; G89.29 Other chronic pain; M47.817 Spondylosis without myelopathy or radiculopathy, lumbosacral region
CPT/HCPCS: J2250; J3301; J3010; G0260; 27096

== ENCOUNTER 2018-04-08 09:37 | Day surgery (SDC) | payer OTHER ==
[2018-04-06 10:26] VITALS: BMI 25.7
[2018-04-08 10:52] VITALS: TEMP 98.1
[2018-04-08] MEDS ORDERED: LACTATED RINGERS 1,000 ML IV ONE (10:57)
[2018-04-08] MEDS ORDERED: LIDOCAINE 1% 20 ML VIAL (10MG/ML) FOR IV START INTRADERMA ONE (10:58)
--- NOTE | 2018-04-08 11:06 | P.PCN ---
Date of Procedure: 04/08/18 Surgeon: Ayad Walker Description of Procedure: Preoperative diagnoses: Left sacroilitis Postoperative diagnoses: Left sacroilitis. Procedure: Left sacroiliac joint steroid injection under fluoroscopic guidance. Surgeon: Ayad Walker MD Anesthesia: IV sedation per hospital guidelines EBL: None Procedure indication: The patient had a history of severe chronic low back pain , diagnosed with sacroiliitis and lumbar sacral facet arthropathy unresponsive to conservative treatment. Procedure description: The patient was seen and identified in the preoperative holding area, risks and benefits and alternative of the procedure and possible complications discussed with the patient, and he agreed with the preceding, patient signed the consent, an IV was started, and vital signs were monitored and were stable throughout the procedure, patient was placed in the prone position or table and the lumbosacral area was prepped and draped with a sterile fashion, vital signs were closely monitored during the procedure, the fluoroscopy camera was placed in the contralateral oblique view on the left sacroiliac joint and the lower part of the joint was identified a 2 mL then a 25 -gauge Quincke-type spinal needle advanced slowly under fluoroscopy and placed in the posterior and inferior border of the left sacroiliac joint, placement confirmed with AP and lateral view, and after appropriate needle placement confirmed and after negative aspiration for heme and CSF and there was , 3 ml of Marcaine 0.5% and 40 mg of Kenalog injected after negative aspiration, no paresthesia during the injection, no resistance to injection, and the needle was removed. The entire same procedure was repeated for the left sacroiliac joint Patient tolerated the procedure well without any complication. The patient returned to supine position after the back was cleaned and a Band- Aid applied, the patient transported to recovery room in stable condition and he was monitored for 30 minutes before he was discharged home and then patient was reexamined before going home and patient was discharged in stable condition and patient will follow up with the pain clinic in a few weeks
--- NOTE | 2018-04-08 12:06 | FL ---
EXAMINATION TYPE: FL guided pain mgmt statistic DATE OF EXAM: 04/08/2018 HISTORY: Flouroscopy time 2 seconds of fluoroscopy provided. IMPRESSION: 1. Fluoroscopy time.
[2018-04-08] MEDS ORDERED: IV FLUID CONTINUATION 1,000 ML IV ONE (12:17)
[2018-04-08 12:18] VITALS: RESP 18
[2018-04-08 12:35] VITALS: BP 140/89; PULSE 78
--- NOTE | 2018-04-10 10:15 | CDI ---
Date: 04/10/18 CDS/Repair Technician Name: Claudia Bourne Phone: If any questions, call Jaci Reinoso [facility] at [phone] Patient Name: Cisco Du Admit Date: 04/08/18 Discharge Date: 04/08/18 ATTENTION: The [facility] Coding Staff appreciate your assistance in clarifying documentation. Please respond to the clarification below the line at the bottom and electronically sign. The [facility] Coding staff will review the response and follow-up if needed. Please note: Queries are made part of the Legal Health Record. If you have any questions, please contact the [employer]. Dear Dr. Walker, Please provide clarification as to what type of sedation was provided. The Operative report documents only IV Sedation per hospital guidelines. On the Pain Procedure Record under Anesthesia Plan, nothing is checked. Please clarify if the sedation was Moderate/conscious or MAC/unconscious. . MTDD
== END 2018-04-08 12:54 | disposition home or self-care (01) ==
LOC: ORPAIN 09:37
PROVIDERS: ATTEND Anesthesiology
DX: G89.29 Other chronic pain (principal); M46.1 Sacroiliitis, not elsewhere classified; Z88.0 Allergy status to penicillin; Z91.038 Other insect allergy status
CPT/HCPCS: J2250; J3301; G0260; 27096

== ENCOUNTER 2018-05-04 08:46 | Day surgery (SDC) | payer OTHER ==
[2018-04-28 15:47] VITALS: BMI 25.2
[2018-05-04 09:45] VITALS: TEMP 98.2
[2018-05-04] MEDS ORDERED: LACTATED RINGERS 1,000 ML IV SCH (09:45)
[2018-05-04] MEDS ORDERED: LIDOCAINE 1% 20 ML VIAL (10MG/ML) FOR IV START INTRADERMA ONE (09:49)
--- NOTE | 2018-05-04 11:02 | P.PCN ---
Date of Procedure: 05/04/18 Surgeon: Anthony Baker Pathology: none sent Condition: stable Disposition: PACU Description of Procedure: PREOPERATIVE DIAGNOSIS: 1-Bilateral sacroiliitis. 2 Lumbar DDD POSTOPERATIVE DIAGNOSIS:. 1-Bilateral sacroiliitis. 2 Lumbar DDD PROCEDURES: Left Sacroiliac joint steroid injection with fluoroscopic guidance ANESTHESIA: Local with 1% lidocaine; conscious sedation EBL: Minimal. PROCEDURE INDICATIONS: This patient with a history of low back pain secondary to sacroiliitis and lumbar DDD unresponsive to conservative management. No use of blood thinners. PROCEDURE DESCRIPTION: The patient was seen and identified in the preoperative area. Risks, benefits, complications, and alternatives were discussed with the patient (including but not limited to incomplete pain relief, bleeding, infection, nerve damage, and allergies to medications), the patient agreed to proceed with the procedure and signed the consent after all questions were answered. Patient was taken to the OR and time out was completed to verify proper patient , position, laterality of pain, and allergies. Pt was placed in the prone position and a pillow was placed under the abdomen to reduce lumbar lordosis. The lumbosacral area was prepped and draped in the usual sterile fashion. Critical pause was taken. Vital signs were closely monitored during the procedure. The fluoroscopic camera was placed in contralateral oblique view and right sacroiliiac joint lower pole was identified. After local infiltration with 1% lidocaine 2 ml, Subsequently, a 22-gauge 3.5 inch spinal needle was introduced into the posteroinferior aspect of the right sacroiliac joint under direct fluoroscopic visualization. Subsequently, 4 ml of a solution of a total of 4 ml solution containing total 3 mL of 0.5% preservative-free ropivicaine mixed with 40 mg of Kenalog was injected after negative aspiration for CSF, blood, and air and negative for paresthesia. The entire procedure was repeated on the left side as above. Needle was withdrawn intact. Skin was cleansed, and bandages were applied. COMPLICATIONS: None. COMMENTS: DISPOSITION / PLANS: The patient was placed in a supine position and transferred to the recovery area in a stable condition for observation and was discharged from the recovery room after meeting discharge criteria. Home discharge instructions given to the patient by the staff. The patient was reexamined prior to discharge. The patient will schedule a follow up in clinic in 4 weeks. MAPS reviewed, script written for [place] 7.5/325 mg #60 with no refill.
[2018-05-04 11:20] VITALS: BP 154/87; PULSE 69; RESP 18
[2018-05-04] MEDS ORDERED: IV FLUID CONTINUATION 400 ML IV ONE (11:33)
--- NOTE | 2018-05-04 12:04 | FL ---
EXAMINATION TYPE: FL guided pain mgmt statistic DATE OF EXAM: 05/04/2018 COMPARISON: NONE HISTORY: Sacroiliac joint pain TECHNIQUE: Fluoroscopy. FINDINGS/IMPRESSION: Fluoroscopic guidance was provided during procedure performed by Dr. Baker. A total of 7 seconds of fluoroscopic time was utilized during the procedure and 2 spot images was acqui red demonstrating localization during a left sacroiliac joint injection.
== END 2018-05-04 11:35 | disposition home or self-care (01) ==
LOC: ORPAIN 08:46
PROVIDERS: ATTEND Anesthesiology
DX: M46.1 Sacroiliitis, not elsewhere classified (principal); M51.36 Other intervertebral disc degeneration, lumbar region; Z88.0 Allergy status to penicillin
CPT/HCPCS: J2250; J3301; J3010; Q9966; G0260; 27096

== ENCOUNTER → 2018-06-01 | Outpatient (CLI) | payer OTHER ==
[2018-06-01 12:49] VITALS: BP 133/86; PULSE 90; RESP 18
--- NOTE | 2018-06-01 13:46 | P.PAINPG ---
Subjective Progress Note Date: 06/01/18 This is follow-up visit for this patient with a history of severe and chronic low back pain diagnosed with left sacroiliitis disposed left sacroiliac joint steroid injections x3 [place] patient had history of right knee osteoarthritis status post radiofrequency ablation of the right genicular nerves Patients currently on the proximal and 500 mg twice a day , [place] 7.5/325 every 12 hours , Patient denies any side effects of the medication, denies excessive drowsiness or sleepiness, denies suicidal ideation, and reports that the current pain medication is helping to control the pain and improve activity of daily living Patient denies any motor or sensory deficit , patient denies any fever or night sweats, denies any change in the bowel movements or urination Physical Examinations : 1-Constitutional : Cooperative , not in acute distress . 2-HEENT : nech ; supple , no Lymphadenopathy , no Thyromegaly , normal thyroid size . eyes : no ptosis , no icterus, no photophobia . ENT : normal of hearing , normal oropharynx , no Thrush . 3- Respiratory : Chest clear to auscultations Bilaterally , no wheezing , no Rhonchi . 4- Cardiovascular : regular rate and rhythem , S1 , S2 , no S3 , no S4. 5- Gastrointestinal : abdomen soft no tenderness , bowel sounds positive all four quadrents , no organomegally . 6- Genitourinary : Defferred . 7- neurologic: Cranial nerve II to XII intact , no focal neurological deffecit . 8- Psychatric: alert , oriented X 3 , appropriate affect , intact judgment and insight . 9- Lymphatic : no Lymphadenopathy . 10- Musculoskeltal : . exams of the Lumber spine =motor strength lower extremities ,thigh and legs .5/5 . lumber facet Loading Test negative bilaterally strait leg raising test negative bilaterally , Fabere test positive RT and positive LT . Range of motion: normal Range of motion range of motion of extension of the lumbar spine 30 Sever tenderness over the Sacroiliac joint on the Left side Assessment and plan = Chronic low back pain secondary to left sacroiliitis status post left sacroiliac joint steroid injections x3 patient had a good result after the injection and he will be good candidate to have radiofrequency ablation of the left side L5-S1, dorsovenous and the radiofrequency ablation of the lateral branches of S1/S2/S3 chronic and current use of high-risk medication (Opioids). The patient was counseled about risk of opioid use, psychological risk associated with opioids and was orally counseled to not overuse , divert,or sell dictations to take medications as prescribed only , and to restore medication in safe location , the patient counseled against driving while using narcotic medications , and also not to use alcohol or any illicit recreational drugs, patient's verbalized understanding that the lack of compliance will result in failure to renew narcotic prescription and possible discharge from the clinic - diagnoses, prognosis, and treatment options including but not limited to physical therapy, surgical interventions, interventional therapies , and medication management including narcotics and adjuvant medication were discussed with the patient and all the questions answered Prescription refill for [place] 7.5/325 every 12 hours dispense 60 with 1 refill , Voltaren gel , naproxen 500 mg twice a day We'll order also basic metabolic panel to check kidney function because patient getting NSAID therapy PQRS Measure Charge Sheet Measure #130: Documentation of Current Meds in Medical Chart: Patient's medications documented in chart Measure #226: Tobacco Use: Screen & Cessation Intervention: Pt screened for tobacco use AND intervention given Measure #111: Pneumonia Vaccination: Pneumococcal vaccine administered or previously received Measure #47: Advance Care Plan: Advance care planning discussed & documented, plan or surrogate given Measure #412: Opioid Treatment Agreement: Documented signed opioid trtmnt agreemnt min once during opioid trtmnt Measure #408: Opioid Therapy Follow-up Evaluation: Patient had f/u eval minimum every 3 months during opioid therapy Measure #317: Preventitive Care & Scrn High Bld Press & F/U: Normal blood pressure, f/u not required Measure #128: Body Mass Index (BMI) Screening & Follow-up: BMI documented ABOVE normal parameters - f/u documented Measure #131: Pain Assessment & Follow-up: Pain positive & plan documented, Follow-up scheduled Measure #431: Unhealthy Alcohol Use Preventative Care & Scrn: Patient not identified as an unhealthy alcohol user PQRS Narrative: Smoking Status Current every day smoker Narcotic Agreement Date Signed 10/23/16 Hx Alcohol Use (MH) Yes Home Medications: Ambulatory Orders Aspirin/Acetaminophen/Caffeine [Excedrin Migraine Caplet] 1 tab PO DIRECTED PRN 12/19/16 Losartan Potassium 50 mg PO DAILY 11/24/17 Diclofenac Sodium Gel [Voltaren Gel] 4 gm TOPICAL QID #1 tub 02/10/18 HYDROcodone/APAP 7.5-325MG [[place] 7.5-325] 1 tab PO Q12HR PRN #60 tab 02/10/18 Naproxen [Naprosyn] 500 mg PO Q12HR PRN #60 tablet 02/10/18 Controlled Substance Measures - Controlled Substance Measures Is patient prescribed a controlled substance at discharge?: Yes When asked, does pt state using other controlled substances?: Yes If prescribed controlled substance>3 days was MAPS reviewed?: Yes If Rx opioid, was Start Talking consent form obtained?: Yes If opioid is for acute pain is fill amount 7 days or less?: No Was information provided regarding opioid addiction?: Yes
== END | disposition home or self-care (01) ==
LOC: PNWHC3 12:26
PROVIDERS: ATTEND Specialist
DX: G89.29 Other chronic pain (principal); M54.5 Low back pain; M46.1 Sacroiliitis, not elsewhere classified; M17.11 Unilateral primary osteoarthritis, right knee; F17.200 Nicotine dependence, unspecified, uncomplicated; Z79.891 Long term (current) use of opiate analgesic; Z71.89 Other specified counseling; Z79.82 Long term (current) use of aspirin
CPT/HCPCS: 99211

== ENCOUNTER → 2018-06-09 | Outpatient (CLI) | payer OTHER ==
[2018-06-09 10:17] LABS: Anion Gap 7 mmol/L; Blood Urea Nitrogen 9 mg/dL (9-20); Calcium 9.5 mg/dL (8.4-10.2); Carbon Dioxide 25 mmol/L (22-30); Chloride 108 mmol/L (98-107); Glucose 98 mg/dL (74-99); Potassium 4.4 mmol/L (3.5-5.1); Sodium 140 mmol/L (137-145)
== END | disposition home or self-care (01) ==
LOC: LABWHC1 09:40
PROVIDERS: ATTEND Specialist
DX: Z51.81 Encounter for therapeutic drug level monitoring (principal); Z79.1 Long term (current) use of non-steroidal anti-inflammatories (NSAID)
CPT/HCPCS: 36415; 80048

== ENCOUNTER 2018-06-23 07:46 | Day surgery (SDC) | payer OTHER ==
[2018-06-16 08:42] VITALS: BMI 26.3
[2018-06-23] MEDS ORDERED: LACTATED RINGERS 1,000 ML IV SCH (08:00)
[2018-06-23 08:10] VITALS: TEMP 97.9
[2018-06-23] MEDS ORDERED: LIDOCAINE 1% 20 ML VIAL (10MG/ML) FOR IV START INTRADERMA ONE (08:20)
--- NOTE | 2018-06-23 08:38 | P.PCN ---
Date of Procedure: 06/23/18 Surgeon: Ayad Walker Description of Procedure: OPERATION: Radiofrequency ablation of the left lateral branches S1, S2, S3 and the left sacral ala levels under fluoroscopic guidance. PREOPERATIVE DIAGNOSES: Left] sacroilitis POSTOPERATIVE DIAGNOSES: same COMPLICATIONS: None. ANESTHESIA: IV sedation with local infiltration. CONDITION: Stable. FLUOROSCOPY TIME:4] seconds. INDICATION FOR THE PROCEDURE: This is a 60]-lvbx-txszhqy-frtkz low back pain and buttocks pain with a history of low back pain. The patient has responded well to previous diagnostic sacroiliac joint injections. Based on this positive response to screening evaluations, patient was felt to be good candidate for radiofrequency ablation and scheduled for this procedure. Procedure in Detail: Procedure, risks and benefits discussed with the patient who agreed with proceeding. Patient taken to the operating room, placed in prone position. All standard monitors applied to the patient. Then after induction of anesthesia, back prepped with chloroprep 3 times. Then under fluoroscopic guidance we used 1% lidocaine 8 mL for skin and subcutaneous tissue infiltrations. Then after that, 20-gauge radiofrequency active-tip needles, 4 needles used, each one of them placed at the junction of the base of the transverse process and the superior articulating process of the [] side at S1,S2,S3 levels. Needle placement confirmed with AP and lateral views. Then after appropriate needle placement confirmed, we checked for the motor stimulation at 2.5 v, which was positive for localized contractions in the lumbar area and there were no contractions in the lower extremities. Then after that, we checked for the sensory stimulation, which was positive at all levels at less than 0.5 v. Then after that, the radiofrequency done at 80 degrees Centigrade for 90 seconds at each level. Then before the needles taken out, 0.5 % Marcaine 6 mL and 40 mg of depomedrol mixed together and 1.5 mL injected at each level after negative aspiration. Patient tolerated the procedure well without any complication and will follow up with the pain clinic in few weeks.
[2018-06-23] MEDS ORDERED: IV FLUID CONTINUATION 1,000 ML IV ONE ×2 (09:13)
--- NOTE | 2018-06-23 09:14 | FL ---
EXAMINATION TYPE: FL guided pain mgmt statistic DATE OF EXAM: 06/23/2018 HISTORY: Flouroscopy time 2 seconds of fluoroscopy provided. IMPRESSION: 1. Fluoroscopy time.
[2018-06-23 09:18] VITALS: PULSE 66; RESP 16
[2018-06-23 09:35] VITALS: BP 143/92
== END 2018-06-23 09:47 | disposition home or self-care (01) ==
LOC: ORPAIN 07:46
PROVIDERS: ATTEND Pain Medicine Pain Medicine
DX: M46.1 Sacroiliitis, not elsewhere classified (principal); Z88.0 Allergy status to penicillin; I10 Essential (primary) hypertension; F17.200 Nicotine dependence, unspecified, uncomplicated
CPT/HCPCS: 64635; 64636; J2250; J1030; J2001; J3010; 99152

== ENCOUNTER → 2018-07-27 | Outpatient (CLI) | payer OTHER ==
[2018-07-27 14:01] VITALS: BP 153/94; PULSE 98; RESP 16; TEMP 98.1
--- NOTE | 2018-07-28 07:39 | P.PAINPG ---
Subjective Progress Note Date: 07/27/18 This is follow-up visit for this 58 years old male with a chronic history of severe low back pain, is diagnosed with sacroiliitis and lumbar spondylosis with done radiofrequency ablation of the sacroiliac joint, patient reported that he had some improvement in his low back pain but he continued to have, severe low back pain which is increased with any activity, the pain is constant , intensity of the pain 6/10, he denies any motor or sensory deficit he denies any fever or night sweats. Denies any change in the bowel movement or urination , he used pain medication [place] 7.5/325 every 12 hours when necessary, and naproxen 500 mg twice a day, he denies any side effect of the medication he denies any suicidal ideation, and he reported the current pain medication helping him to control his pain and improve quality of life Objective - Vital Signs Vital signs: Vital Signs Temp 98.1 F 07/27/18 13:56 Pulse 98 07/27/18 13:56 Resp 16 07/27/18 13:56 BP 153/94 07/27/18 13:56 Pulse Ox 96 07/27/18 13:56 Intake & Output 07/27/18 07/28/18 07/28/18 18:59 06:59 18:59 Weight 65.771 kg - Exam Physical Examinations : 1-Constitutiona : Cooperative , not in acute distress . 2-HEENT : nech ; supple , no Lymphadenopathy , normal thyroid size . eyes : no ptosis , no icterus , no photophobia . ENT : normal of hearing , normal oropharynx , no Thrush . 3- Respiratory : Chest clear to auscultations Bilaterally , no wheezing , no Rhonchi . 4- Cardiovascular : regular rate and rhythem , S1 , S2 , no S3 , no S4. 5- Gastrointestinal : abdomen soft no tenderness , bowel sounds , no organomegally . 6- Genitourinary : Defferred . 7- neurologic : Cranial nerve II to XII intact , no focal neurological deffecit . 8-psychatric : alert , oriented X 3 , appropriate affect , intact judgment and insight . 9-Lymphatic : no Lymphadenopathy . 10- musculoskeltal : Lumber spine moter stegnth lower extremities ,thigh and legs 5/5 Right side , 5/5 Left side deep tendon reflexes : normal Knee Jerk , normal ankle Jerk positive lumber facet Loading Test Range of motion of the lumbar spine Flexion 30 degrees, extension 10 degrees strait leg raising test , positive at 30 degree Fabere test positive RT and positive LT . Assessment and Plan Plan: Assessment and plan= chronic low back pain secondary to sacroiliitis, lumbar spondylosis with lumbar facet arthropathy . Patient continued to have severe low back pain after radiofrequency ablation of the sacroiliac joint chronic and current use of high-risk medication (opioids) Patient denies any side effects of the current pain medication and the current treatment/medication helping the patient to do activity of daily living , Diagnoses, prognosis, treatment options, including but not limited to physical therapy, medication management, interventional therapies, and surgery, were discussed with the patient All the questions answered The narcotic consent was signed and patient agreed and understood the side effects and complications of opioid treatment. Patient signed the narcotic agreement, and was orally counseled, not to overuse, not to abuse, not to Divert , not tp sell pain medication, and to take it as prescribed only, Patient was counseled not to drive or operate heavy equipment while using narcotic medication, and advised not to use alcohol or any Illicit drugs while using the narcotis, the patient's verbalized understanding that lack of compliance with any of the above instructions, will likely to cause discharge from, the pain service, not to renew his narcotic prescriptions MAPS Reviwed and it was apropriate . Medication managements= patient will be given prescription refills for [place] 7.5/325 dispense 60 with 1 refill ,and naproxen 500 mg twice a day dispense 60 with 1 refill. Diagnostic study= I ordered MRI of the lumbar spine without contrast, evaluate the agility of the chronic low back pain. , Time with Patient: Less than 30 PQRS Measure Charge Sheet Measure #130: Documentation of Current Meds in Medical Chart: Patient's medications documented in chart Measure #226: Tobacco Use: Screen & Cessation Intervention: Pt screened for tobacco use AND intervention given Measure #111: Pneumonia Vaccination: Pneumococcal vaccine administered or previously received Measure #47: Advance Care Plan: Advance care planning discussed & documented, pt chose/unable to give Measure #412: Opioid Treatment Agreement: Documented signed opioid trtmnt agreemnt min once during opioid trtmnt Measure #408: Opioid Therapy Follow-up Evaluation: Patient had f/u eval minimum every 3 months during opioid therapy Measure #317: Preventitive Care & Scrn High Bld Press & F/U: Pre-hypertensive or hypertensive BP documented, pt will f/u with PCP Measure #128: Body Mass Index (BMI) Screening & Follow-up: BMI documented ABOVE normal parameters - f/u documented Measure #131: Pain Assessment & Follow-up: Pain positive & plan documented, Follow-up scheduled Measure #431: Unhealthy Alcohol Use Preventative Care & Scrn: Patient not identified as an unhealthy alcohol user PQRS Narrative: Smoking Status Current every day smoker Do You Want the Pneumonia Vaccine Up to Date Vaccine AT THIS TIME? Narcotic Agreement Date Signed 10/23/16 Blood Pressure 153/94 Pain Intensity [Left Lower Hip 8 ] Scale Used Numeric (1 - 10) Hx Alcohol Use (MH) Yes Home Medications: Ambulatory Orders Aspirin/Acetaminophen/Caffeine [Excedrin Migraine Caplet] 1 tab PO DIRECTED PRN 12/19/16 Losartan Potassium 50 mg PO QAM 11/24/17 Diclofenac Sodium Gel [Voltaren Gel] 4 gm TOPICAL QID #1 tub 02/10/18 Butalbital/Aspirin/Caffeine [Xhnehp-Lkzwjlq-Qbeedeem 50-325-40 mg] 1 each PO DAILY PRN 06/16/18 HYDROcodone/APAP 7.5-325MG [[place] 7.5-325] 1 tab PO Q12HR PRN #60 tab 07/27/18 HYDROcodone/APAP 7.5-325MG [[place] 7.5-325] 1 tab PO Q12HR PRN 30 Days #60 tab Naproxen [Naprosyn] 500 mg PO Q12HR PRN #60 tablet 07/27/18 Controlled Substance Measures - Controlled Substance Measures Is patient prescribed a controlled substance at discharge?: Yes When asked, does pt state using other controlled substances?: No If prescribed controlled substance>3 days was MAPS reviewed?: Yes If Rx opioid, was Start Talking consent form obtained?: Yes If opioid is for acute pain is fill amount 7 days or less?: No Was information provided regarding opioid addiction?: Yes
== END | disposition home or self-care (01) ==
LOC: PNWHC3 13:14
PROVIDERS: ATTEND Specialist
DX: G89.29 Other chronic pain (principal); M47.816 Spondylosis without myelopathy or radiculopathy, lumbar region; M46.96 Unspecified inflammatory spondylopathy, lumbar region; M46.1 Sacroiliitis, not elsewhere classified; F17.200 Nicotine dependence, unspecified, uncomplicated; Z79.891 Long term (current) use of opiate analgesic; Z79.899 Other long term (current) drug therapy; Z79.1 Long term (current) use of non-steroidal anti-inflammatories (NSAID); Z98.890 Other specified postprocedural states
CPT/HCPCS: 99211

== ENCOUNTER → 2018-08-18 | Outpatient (CLI) | payer OTHER ==
[2018-08-18 18:44] LABS: Blood Urea Nitrogen 6 mg/dL (9-20)
== END ==
LOC: LABWHC1 15:34
PROVIDERS: ATTEND Psychiatry & Neurology Pain Medicine
DX: Z01.818 Encounter for other preprocedural examination (principal); R51 Headache
CPT/HCPCS: 36415; 82565; 84520

== ENCOUNTER → 2018-08-19 | Outpatient (CLI) | payer OTHER ==
--- NOTE | 2018-08-20 02:48 | MR ---
EXAMINATION TYPE: MR lumbar spine wo con DATE OF EXAM: 08/19/2018 COMPARISON: None HISTORY: Back pain TECHNIQUE: Multiplanar, multisequence images of the lumbar spine were acquired. Lumbar vertebra have normal alignment. There is mild uniform narrowing of lumbar disc spaces. L4-5 di sc space is more severely narrowed. There is 13 x 5 mm extradural mass posterior to the L5 vertebral body consistent with extruded disc herniation from the L4-5 disc. There is developmentally large spin al canal and no significant impingement on the neural elements. Lumbar nerve roots appear normal. The re is narrowing of the L4-5 neural foramina bilaterally due to disc space narrowing and facet arthrop athy. Lumbar nerve roots appear normal. There is no lumbar paraspinal mass. Sacroiliac joints are int act. I see no bony destructive process. There are small posterior disc bulges at T12-L1 L3-4 L4-5. Th ere is no compression fracture. I see no focal bone destruction. IMPRESSION: Small extruded posterior disc herniation at L4-5 as above. No spinal stenosis. Neural foraminal impin gement at L4-5 due to disc space narrowing. No fracture. Multilevel mild posterior disc bulging.
--- NOTE | 2018-08-20 05:05 | MR ---
EXAMINATION TYPE: MR brain wo/w con DATE OF EXAM: 08/19/2018 COMPARISON: None HISTORY: Headaches TECHNIQUE: Multiplanar, multisequence images of the brain and brainstem is performed without and with IV contras t, utilizing 7.5 mL intravenous Gadavist . FINDINGS: There is mild cerebral cortical atrophy appropriate for age. There is no mass effect nor midline shif t. There is no sign of intracranial hemorrhage. On the T2 and FLAIR images there are scattered multip le foci of increased signal at the saldivar-white matter junction of both cerebral hemispheres. These abad sure up to 5 mm. Total number is approximately 10. The brainstem is intact. Corpus callosum is intact. Sella turcica appears normal. There is mild mucos al thickening in the ethmoid air cells. The orbits appear normal. 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 Contrast images show no pathologic enhancement. There is a irregular filling defect within the sigmo id sinus at the skull base on the right side. This measures 13 x 7 mm and could be some focal sinus t hrombosis. There is similar 6 mm focus on the left side. IMPRESSION: White matter foci as described above are nonspecific readout consider both chronic small vessel ischemia and demyelinating disease. Mild ethmoid and frontal sinusitis. There is evidence of bilateral venous sinus thrombosis as described above.
--- NOTE | 2018-08-20 05:16 | MR ---
EXAMINATION TYPE: MR angio head wo/neck wo/w con DATE OF EXAM: 08/19/2018 COMPARISON: None HISTORY: Headache TECHNIQUE: Time of flight images focusing on the [place] of [place] were performed without contrast.. 2-D and 3-D postprocessing imaging is performed. MR angiogram of the cervical carotid and vertebral arteries was performed without and with IV contras t. MR angiographic images of the brain were obtained without and with IV contrast. The contrast was gado linium 7.5 mm. FINDINGS: There is arterial flow in the anterior middle and posterior cerebral arteries. There is art erial flow in the vertebrobasilar artery system. The basilar artery fills from both sides. There is n o mass effect. There is no midline shift. I see no evidence of intracranial arterial stenosis. There is no evidence of intracranial aneurysm. The vessels appear widely patent. There is normal branching pattern of the great vessels on the aortic arch. There is bilateral arteria l flow in the vertebral arteries which are fairly symmetric. There is bilateral arterial flow in the common internal and external carotid arteries. The carotid artery bifurcations appear widely patent. There is no evidence of carotid or vertebral artery aneurysm or dissection. IMPRESSION: Normal CT angiogram of the neck. Normal CT angiogram of the brain.
== END | disposition home or self-care (01) ==
LOC: RADMRIMAIN 16:24
PROVIDERS: ATTEND Psychiatry & Neurology Neurology
DX: M48.061 Spinal stenosis, lumbar region without neurogenic claudication (principal); M51.26 Other intervertebral disc displacement, lumbar region; I67.82 Cerebral ischemia; G37.9 Demyelinating disease of central nervous system, unspecified; R51 Headache; Z88.0 Allergy status to penicillin
CPT/HCPCS: 70544; 70549; 70553; 72148; A9581

== ENCOUNTER → 2018-08-24 | Outpatient (CLI) | payer OTHER ==
[2018-08-24 13:14] VITALS: BP 155/92; PULSE 99; RESP 18
--- NOTE | 2018-08-24 14:04 | P.PAINPG ---
Subjective Progress Note Date: 08/24/18 This is follow-up visit for this 58 years old male with a chronic history of severe low back pain, is diagnosed with sacroiliitis and lumbar spondylosis we have done radiofrequency ablation of the sacroiliac joint, patient reported that he had some improvement in his low back pain but he continued to have, severe low back pain which is increased with any activity, the pain is constant , intensity of the pain 6/10, he denies any motor or sensory deficit he denies any fever or night sweats. Denies any change in the bowel movement or urination , he used pain medication [place] 7.5/325 every 12 hours when necessary, and naproxen 500 mg twice a day, he denies any side effect of the medication he denies any suicidal ideation, and he reported the current pain medication helping him to control his pain and improve quality of life, patient here today to discuss the results of the MRI done recently, The new MRI done 08/19/2018 showed patient had foraminal narrowing , and facet arthropathy mainly at the L4-L5 level and multilevel lumbar bulging disc Physical Examinations : 1-Constitutiona : Cooperative , not in acute distress . 2-HEENT : nech ; supple , no Lymphadenopathy , normal thyroid size . eyes : no ptosis , no icterus , no photophobia . ENT : normal of hearing , normal oropharynx , no Thrush . 3- Respiratory : Chest clear to auscultations Bilaterally , no wheezing , no Rhonchi . 4- Cardiovascular : regular rate and rhythem , S1 , S2 , no S3 , no S4. 5- Gastrointestinal : abdomen soft no tenderness , bowel sounds , no organomegally . 6- Genitourinary : Defferred . 7- neurologic : Cranial nerve II to XII intact , no focal neurological deffecit . 8-psychatric : alert , oriented X 3 , appropriate affect , intact judgment and insight . 9-Lymphatic : no Lymphadenopathy . 10- musculoskeltal : Lumber spine moter stegnth lower extremities ,thigh and legs 5/5 Right side , 5/5 Left side deep tendon reflexes : normal Knee Jerk , normal ankle Jerk positive lumber facet Loading Test Range of motion of the lumbar spine Flexion 30 degrees, extension 10 degrees strait leg raising test negative bilaterally Fabere test negative bilaterally . Assessment and plan= chronic low back pain secondary to sacroiliitis, lumbar spondylosis with lumbar facet arthropathy . Patient continued to have severe low back pain after radiofrequency ablation of the sacroiliac joint chronic and current use of high-risk medication (opioids) Patient denies any side effects of the current pain medication and the current treatment/medication helping the patient to do activity of daily living , Diagnoses, prognosis, treatment options, including but not limited to physical therapy, medication management, interventional therapies, and surgery, were discussed with the patient All the questions answered The narcotic consent was signed and patient agreed and understood the side effects and complications of opioid treatment. Patient signed the narcotic agreement, and was orally counseled, not to overuse, not to abuse, not to Divert , not tp sell pain medication, and to take it as prescribed only, Patient was counseled not to drive or operate heavy equipment while using narcotic medication, and advised not to use alcohol or any Illicit drugs while using the narcotis, understanding that lack of compliance with any of the above instructions, will likely to cause discharge from, the pain service, not to renew his narcotic prescriptions MAPS Reviwed and it was apropriate . Medication managements= patient already had a refill for [place] 7.5/325, and naproxen 500 mg Procedure= patient will be scheduled to have diagnostic medial branch block lumbar area L34/L4-L5/L5-S1 elicits possible proceed with the radiofrequency ablation of the medial branch lumbar area , Objective - Vital Signs Vital signs: Vital Signs Temp Pulse 99 08/24/18 13:07 Resp 18 08/24/18 13:07 BP 155/92 08/24/18 13:07 Pulse Ox 96 08/24/18 13:07 Intake & Output 08/23/18 08/24/18 08/24/18 18:59 06:59 18:59 Weight 65.771 kg PQRS Measure Charge Sheet Measure #130: Documentation of Current Meds in Medical Chart: Patient's medications documented in chart Measure #226: Tobacco Use: Screen & Cessation Intervention: Pt screened for tobacco use AND intervention given Measure #111: Pneumonia Vaccination: Pneumococcal vaccine administered or previously received Measure #47: Advance Care Plan: Advance care planning discussed & documented, pt chose/unable to give Measure #412: Opioid Treatment Agreement: Documented signed opioid trtmnt agreemnt min once during opioid trtmnt Measure #408: Opioid Therapy Follow-up Evaluation: Patient had f/u eval minimum every 3 months during opioid therapy Measure #317: Preventitive Care & Scrn High Bld Press & F/U: Pre-hypertensive or hypertensive BP documented, pt will f/u with PCP Measure #128: Body Mass Index (BMI) Screening & Follow-up: BMI documented ABOVE normal parameters - f/u documented Measure #131: Pain Assessment & Follow-up: Pain positive & plan documented, Follow-up scheduled Measure #431: Unhealthy Alcohol Use Preventative Care & Scrn: Patient not identified as an unhealthy alcohol user PQRS Narrative: Smoking Status Current every day smoker Do You Want the Pneumonia No Vaccine AT THIS TIME? Narcotic Agreement Date Signed 10/23/16 Blood Pressure 155/92 Pain Intensity [Left Lower Hip 7 ] Scale Used Numeric (1 - 10) Hx Alcohol Use (MH) Yes Home Medications: Ambulatory Orders Aspirin/Acetaminophen/Caffeine [Excedrin Migraine Caplet] 1 tab PO DIRECTED PRN 12/19/16 Losartan Potassium 50 mg PO QAM 11/24/17 Diclofenac Sodium Gel [Voltaren Gel] 4 gm TOPICAL QID #1 tub 02/10/18 Butalbital/Aspirin/Caffeine [Rgwoad-Ouvhpqc-Yxglqoic 50-325-40 mg] 1 each PO DAILY PRN 06/16/18 HYDROcodone/APAP 7.5-325MG [[place] 7.5-325] 1 tab PO Q12HR PRN #60 tab 07/27/18 HYDROcodone/APAP 7.5-325MG [[place] 7.5-325] 1 tab PO Q12HR PRN 30 Days #60 tab Naproxen [Naprosyn] 500 mg PO Q12HR PRN #60 tablet 07/27/18 Controlled Substance Measures - Controlled Substance Measures Is patient prescribed a controlled substance at discharge?: Yes When asked, does pt state using other controlled substances?: No If prescribed controlled substance>3 days was MAPS reviewed?: Yes If Rx opioid, was Start Talking consent form obtained?: Yes If opioid is for acute pain is fill amount 7 days or less?: No Was information provided regarding opioid addiction?: Yes
== END | disposition home or self-care (01) ==
LOC: PNWHC3 12:50
PROVIDERS: ATTEND Specialist
DX: G89.29 Other chronic pain (principal); M47.816 Spondylosis without myelopathy or radiculopathy, lumbar region; M46.96 Unspecified inflammatory spondylopathy, lumbar region; M46.1 Sacroiliitis, not elsewhere classified; F17.200 Nicotine dependence, unspecified, uncomplicated; Z79.899 Other long term (current) drug therapy; Z79.891 Long term (current) use of opiate analgesic; Z79.1 Long term (current) use of non-steroidal anti-inflammatories (NSAID); Z98.890 Other specified postprocedural states
CPT/HCPCS: 99211

== ENCOUNTER → 2018-09-06 | Outpatient (CLI) | payer OTHER ==
[2018-09-06 18:02] LABS: Cholesterol 252 mg/dL (<200); HDL Cholesterol 100 mg/dL (40-60); LDL Cholesterol,Calculated 139 mg/dL (0-99); Triglycerides 67 mg/dL (<150)
== END | disposition home or self-care (01) ==
LOC: LABWHC1 16:30
PROVIDERS: ATTEND Psychiatry & Neurology Pain Medicine
DX: I63.9 Cerebral infarction, unspecified (principal)
CPT/HCPCS: 36415; 80061

== ENCOUNTER → 2018-09-08 | Day surgery (SDC) | payer OTHER ==
[2018-09-02 09:19] VITALS: BMI 25.7
[~2018-09-08] MED LIST changes: -LACTATED RINGERS 1,000 ML IV SCH; +SODIUM CHLORIDE 0.9% 500 ML 500 ML IV SCH
[2018-09-08 09:37] VITALS: RESP 18; TEMP 98.2
--- NOTE | 2018-09-08 11:18 | P.PCN ---
Date of Procedure: 09/08/18 Procedure(s) Performed: PREOPERATIVE DIAGNOSIS : 1- Lumbar spondylosis with Facet Arthropathy without myelopathy . 2- Lumber degenerative disc disease POSTOPERATIVE DIAGNOSIS: 1- Lumbar spondylosis with Facet Arthropathy without myelopathy . 2- Lumber degenerative disc disease PROCEDURE: Diagnostic bilateral L3 -4 , L4 -5 , and L5-S1 medial branch block under fluoroscopy ANESTHESIA: Local with Ropivacain 0.5 % 6 ml , moderate sedation with intravenous Versed 2 mg and Fentanyl 100 mcg. EBL: Minimal COMPLICATION: None. IV FLUIDS: 100 mL of normal saline. PROCEDURE INDICATION: Chronic low back pain secondary to Facet arthropathy unresponsive to conservative treatment. PROCEDURE DESCRIPTION: the patient was seen and identified in the preop holding area , risks and benefits and possible complications of the procedure and alternative were discussed with the patient, and the patient agreed to proceed with the procedure and signed the consent IV was started and vital signs monitored during the procedure and fluoroscopy was used to maximize the benefit and accuracy of the needle placement, and sedation was given to decrease patient anxiety, patient was taken to the procedure room and placed in prone position vital signs monitored in the back prepped with chlorhexidine X3 then under strict sterile technique using a right oblique fluoroscopy ,the junction of the transverse process and the superior articulating process of the right L3- 4 , L4- 5, and L5-S1 vertebra which corresponding to the fluoroscopy image of the eye of the Panfilo dog on the block side for the medial branches and subsequently , after local infiltration of skin and subcu tissuies with Ropivacaine 0.5 % , one mL at each level , then 22-gauge Quincke-type needles , 3 needle was used , each one of them placed at the junction of the base of the transverse process and the superior articular process at the appropriate level, and the needle was advanced until the periosteum contacted, needle placement confirmed with AP oblique and lateral view and after appropriate needle placement confirmed, and after negative aspiration for heme and CSF and there was no paresthesia 1-1/2 mL of Ropivacaine 0.5% mixed with 20 mg Kenalog , then half mL injected at each level after negative aspiration the needle subsequently removed and the same procedure repeated for the left side at left side at L3-4, L4- 5 and L5-S1 levels. At the end of the procedure and the needles removed and a bandage applied after the skin was cleaned the cleaning solution patient taken to recovery room in stable condition and monitors in the recovery room for 20-30 minutes and discharged home in stable condition after discharge criteria met and patient will follow up with the pain clinic in 2-4 weeks
[2018-09-08 12:18] VITALS: PULSE 78
[2018-09-08 12:22] VITALS: BP 114/71
--- NOTE | 2018-09-08 14:41 | FL ---
Fluoroscopy HISTORY: Pain 7 seconds fluoroscopy time supplied to the referring clinician. 4 intraoperative C-arm images docume nt the procedure. See dictated report from anesthesia.
== END ==
LOC: ORPAIN 09:18
PROVIDERS: ATTEND Specialist
DX: G89.29 Other chronic pain (principal); M47.816 Spondylosis without myelopathy or radiculopathy, lumbar region; M51.36 Other intervertebral disc degeneration, lumbar region; Z88.0 Allergy status to penicillin
CPT/HCPCS: 64493; 64494; 64495; J2250; J3301; J3010; 99152

== ENCOUNTER → 2018-09-21 | Outpatient (CLI) | payer OTHER ==
[2018-09-21 12:33] VITALS: BP 160/97; PULSE 80; RESP 18
--- NOTE | 2018-09-21 12:52 | P.PAINPG ---
Subjective Progress Note Date: 09/21/18 This is follow-up visit for this 58 years old male with a chronic history of severe low back pain, is diagnosed with sacroiliitis and lumbar spondylosis we have done radiofrequency ablation of the sacroiliac joint, patient reported that he had some improvement in his low back pain but he continued to have, severe low back pain ,which is increased with any activity, the pain is constant , intensity of the pain 6/10, he denies any motor or sensory deficit he denies any fever or night sweats. Denies any change in the bowel movement or urination , he used pain medication [place] 7.5/325 every 12 hours when necessary, and naproxen 500 mg twice a day, he denies any side effect of the medication he denies any suicidal ideation, and he reported the current pain medication helping him to control his pain and improve quality of life, patient here today to discuss the results of the MRI done recently, The new MRI done 08/19/2018 showed patient had foraminal narrowing , and facet arthropathy mainly at the L4-L5 level and multilevel lumbar bulging disc few weeks ago we did diagnostic medial branch block lumbar area at L3-4/L4 5/L5- S1 and he reported that his pain improved more than 50% for a couple of days Physical Examinations : 1-Constitutiona : Cooperative , not in acute distress . 2-HEENT : nech ; supple , no Lymphadenopathy , normal thyroid size . eyes : no ptosis , no icterus , no photophobia . ENT : normal of hearing , normal oropharynx , no Thrush . 3- Respiratory : Chest clear to auscultations Bilaterally , no wheezing , no Rhonchi . 4- Cardiovascular : regular rate and rhythem , S1 , S2 , no S3 , no S4. 5- Gastrointestinal : abdomen soft no tenderness , bowel sounds , no organomegally . 6- Genitourinary : Defferred . 7- neurologic : Cranial nerve II to XII intact , no focal neurological deffecit . 8-psychatric : alert , oriented X 3 , appropriate affect , intact judgment and insight . 9-Lymphatic : no Lymphadenopathy . 10- musculoskeltal : Lumber spine moter stegnth lower extremities ,thigh and legs 5/5 Right side , 5/5 Left side deep tendon reflexes : normal Knee Jerk , normal ankle Jerk positive lumber facet Loading Test Range of motion of the lumbar spine Flexion 30 degrees, extension 10 degrees strait leg raising test negative bilaterally Fabere test negative bilaterally . Assessment and plan= chronic low back pain secondary to sacroiliitis, lumbar spondylosis with lumbar facet arthropathy . Patient had more than 50% decrease in the pain level after the first diagnostic medial branch block Patient continued to have severe low back pain after radiofrequency ablation of the sacroiliac joint chronic and current use of high-risk medication (opioids) Patient denies any side effects of the current pain medication and the current treatment/medication helping the patient to do activity of daily living , Diagnoses, prognosis, treatment options, including but not limited to physical therapy, medication management, interventional therapies, and surgery, were discussed with the patient All the questions answered The narcotic consent was signed and patient agreed and understood the side effects and complications of opioid treatment. Patient signed the narcotic agreement, and was orally counseled, not to overuse, not to abuse, not to Divert , not tp sell pain medication, and to take it as prescribed only, Patient was counseled not to drive or operate heavy equipment while using narcotic medication, and advised not to use alcohol or any Illicit drugs while using the narcotis, understanding that lack of compliance with any of the above instructions, will likely to cause discharge from, the pain service, not to renew his narcotic prescriptions MAPS Reviwed and it was apropriate . Medication managements= refill for [place] 7.5/325 dispense 60 with 1 refill, and naproxen 500 mg dispense 60 with one refill Procedure= patient already scheduled to have #2nd diagnostic medial branch block lumbar area L34/L4-L5/L5-S1 Next visit will do UDS , Objective - Vital Signs Vital signs: Vital Signs Temp Pulse 80 09/21/18 12:26 Resp 18 09/21/18 12:26 BP 160/97 09/21/18 12:26 Pulse Ox 97 09/21/18 12:26 Intake & Output 09/20/18 09/21/18 09/21/18 18:59 06:59 18:59 Weight 68.039 kg PQRS Measure Charge Sheet Measure #130: Documentation of Current Meds in Medical Chart: Patient's medications documented in chart Measure #226: Tobacco Use: Screen & Cessation Intervention: Pt screened for tobacco use AND intervention given Measure #111: Pneumonia Vaccination: Pneumococcal vaccine administered or previously received Measure #47: Advance Care Plan: Advance care planning discussed & documented, pt chose/unable to give Measure #412: Opioid Treatment Agreement: Documented signed opioid trtmnt agreemnt min once during opioid trtmnt Measure #408: Opioid Therapy Follow-up Evaluation: Patient had f/u eval minimum every 3 months during opioid therapy Measure #317: Preventitive Care & Scrn High Bld Press & F/U: Pre-hypertensive or hypertensive BP documented, pt will f/u with PCP Measure #128: Body Mass Index (BMI) Screening & Follow-up: BMI documented ABOVE normal parameters - f/u documented Measure #131: Pain Assessment & Follow-up: Pain positive & plan documented, Follow-up scheduled Measure #431: Unhealthy Alcohol Use Preventative Care & Scrn: Patient not identified as an unhealthy alcohol user PQRS Narrative: Smoking Status Current every day smoker Do You Want the Pneumonia Vaccine Up to Date Vaccine AT THIS TIME? Narcotic Agreement Date Signed 10/23/16 Blood Pressure 160/97 Pain Intensity [Lower Back] 5 Hx Alcohol Use (MH) Yes Home Medications: Ambulatory Orders Aspirin/Acetaminophen/Caffeine [Excedrin Migraine Caplet] 1 tab PO DIRECTED PRN 12/19/16 Losartan Potassium 50 mg PO QAM 11/24/17 Butalbital/Aspirin/Caffeine [Wzfpof-Byvwgam-Lacyufyg 50-325-40 mg] 1 each PO DAILY PRN 06/16/18 HYDROcodone/APAP 7.5-325MG [[place] 7.5-325] 1 tab PO Q12HR PRN #60 tab 09/21/18 Hydrocodone/Acetaminophen [[place] 7.5-325] 1 tab PO Q12HR PRN 30 Days #60 tab Naproxen [Naprosyn] 500 mg PO Q12HR PRN #60 tablet 09/21/18 Controlled Substance Measures - Controlled Substance Measures Is patient prescribed a controlled substance at discharge?: Yes When asked, does pt state using other controlled substances?: No If prescribed controlled substance>3 days was MAPS reviewed?: Yes If Rx opioid, was Start Talking consent form obtained?: Yes If opioid is for acute pain is fill amount 7 days or less?: No Was information provided regarding opioid addiction?: Yes
== END ==
LOC: PNWHC3 12:11
PROVIDERS: ATTEND Specialist
DX: G89.29 Other chronic pain (principal); M47.816 Spondylosis without myelopathy or radiculopathy, lumbar region; M46.96 Unspecified inflammatory spondylopathy, lumbar region; M46.1 Sacroiliitis, not elsewhere classified; F17.200 Nicotine dependence, unspecified, uncomplicated; Z79.891 Long term (current) use of opiate analgesic; Z79.899 Other long term (current) drug therapy
CPT/HCPCS: 99211

== ENCOUNTER 2018-09-23 07:14 | Day surgery (SDC) | payer OTHER ==
[2018-09-21 08:56] VITALS: BMI 26.5
[2018-09-23 07:44] VITALS: RESP 16; TEMP 98
[2018-09-23] MEDS ORDERED: LIDOCAINE 1% 20 ML VIAL (10MG/ML) FOR IV START INTRADERMA ONE (07:54)
--- NOTE | 2018-09-23 08:52 | P.PCN ---
Date of Procedure: 09/23/18 Procedure(s) Performed: PREOPERATIVE DIAGNOSIS : 1- Lumbar spondylosis with Facet Arthropathy without myelopathy . 2- Lumber degenerative disc disease POSTOPERATIVE DIAGNOSIS: 1- Lumbar spondylosis with Facet Arthropathy without myelopathy . 2- Lumber degenerative disc disease PROCEDURE: Diagnostic bilateral L3 -4 , L4 -5 , and L5-S1 medial branch block under fluoroscopy ANESTHESIA: Local with Ropivacain 0.5 % 6 ml , moderate sedation with intravenous Versed 2 mg and Fentanyl 100 mcg. EBL: Minimal COMPLICATION: None. IV FLUIDS: 100 mL of normal saline. PROCEDURE INDICATION: Chronic low back pain secondary to Facet arthropathy unresponsive to conservative treatment. PROCEDURE DESCRIPTION: the patient was seen and identified in the preop holding area , risks and benefits and possible complications of the procedure and alternative were discussed with the patient, and the patient agreed to proceed with the procedure and signed the consent IV was started and vital signs monitored during the procedure and fluoroscopy was used to maximize the benefit and accuracy of the needle placement, and sedation was given to decrease patient anxiety, patient was taken to the procedure room and placed in prone position vital signs monitored in the back prepped with chlorhexidine X3 then under strict sterile technique using a right oblique fluoroscopy ,the junction of the transverse process and the superior articulating process of the right L3- 4 , L4- 5, and L5-S1 vertebra which corresponding to the fluoroscopy image of the eye of the Panfilo dog on the block side for the medial branches and subsequently , after local infiltration of skin and subcu tissuies with Ropivacaine 0.5 % , one mL at each level , then 22-gauge Quincke-type needles , 3 needle was used , each one of them placed at the junction of the base of the transverse process and the superior articular process at the appropriate level, and the needle was advanced until the periosteum contacted, needle placement confirmed with AP oblique and lateral view and after appropriate needle placement confirmed, and after negative aspiration for heme and CSF and there was no paresthesia 1-1/2 mL of Ropivacaine 0.5% mixed with 20 mg Kenalog , then half mL injected at each level after negative aspiration the needle subsequently removed and the same procedure repeated for the left side at left side at L3-4, L4- 5 and L5-S1 levels. At the end of the procedure and the needles removed and a bandage applied after the skin was cleaned the cleaning solution patient taken to recovery room in stable condition and monitors in the recovery room for 20-30 minutes and discharged home in stable condition after discharge criteria met and patient will follow up with the pain clinic in 2-4 weeks
[2018-09-23] MEDS: IV FLUID CONTINUATION 1,000 ML IV ONE ×2 (08:57→09:30)
[2018-09-23] MEDS ORDERED: IV FLUID CONTINUATION 1,000 ML IV ONE (08:57)
--- NOTE | 2018-09-23 09:04 | FL ---
Fluoroscopy INDICATION: Pain FINDINGS: Fluoroscopy time: 4 seconds. Images obtained: 4. IMPRESSIONS: 1. Documentation of fluoroscopy.
[2018-09-23 09:25] VITALS: BP 141/89; PULSE 64
== END 2018-09-23 09:50 | disposition home or self-care (01) ==
LOC: ORPAIN 07:14
PROVIDERS: ATTEND Specialist
DX: M47.816 Spondylosis without myelopathy or radiculopathy, lumbar region (principal); M51.36 Other intervertebral disc degeneration, lumbar region; G89.29 Other chronic pain; I10 Essential (primary) hypertension; Z88.0 Allergy status to penicillin
CPT/HCPCS: 64493; 64494; 64495; J2250; J3301; J3010; 99152

== ENCOUNTER 2018-10-27 09:13 | Day surgery (SDC) | payer OTHER ==
[2018-10-25 14:54] VITALS: BMI 26.5
[2018-10-27 09:44] VITALS: RESP 16; TEMP 98.4
[2018-10-27] MEDS ORDERED: LACTATED RINGERS 1,000 ML IV ONE (09:53)
[2018-10-27] MEDS ORDERED: LIDOCAINE 1% 20 ML VIAL (10MG/ML) FOR IV START INTRADERMA ONE (09:54)
[2018-10-27] MEDS ORDERED: SODIUM CHLORIDE 0.9% 500 ML 500 ML IV SCH (10:00)
[2018-10-27] MEDS ORDERED: IV FLUID CONTINUATION 1,000 ML IV ONE ×2 (10:42)
[2018-10-27 10:44] VITALS: BP 134/83; PULSE 79
--- NOTE | 2018-10-27 13:59 | FL ---
Fluoroscopy HISTORY: Pain 3 seconds fluoroscopy time supplied to the referring clinician. 2 intraoperative C-arm images docume nt the procedure. See dictated report from anesthesia.
--- NOTE | 2018-10-27 14:00 | P.PCN ---
Date of Procedure: 10/27/18 Surgeon: Ayad Walker Description of Procedure: Procedure(s) Performed: PREOPERATIVE DIAGNOSIS: Lumbar Spondylosis POSTOPERATIVE DIAGNOSIS: Same PROCEDURES: Radiofrequency ablation right L4, L5 and sacral ala with fluoroscopic guidance SURGEON: Ayad Walker MD. ANESTHESIA: Moderate sedation with intravenous 2 mg of Versed and 100 g of fentanyl EBL: Minimal PROCEDURE INDICATION: The patient with low back pain secondary to lumbar facet arthropathy who had more than 50% relief of pain with previous diagnostic lumbar medial branch block with bupivacaine. he reports good relief from his previous diagnostic lumbar medial branch nerve blocks. PROCEDURE DESCRIPTION / TECHNIQUE: The patient was seen and identified in the preoperative area. Risks, benefits, complications, including but not limited to risk of infection ,bleeding , allergic reactions to the medications and incomplete pain relief , and alternatives were discussed with the patient, the patient agreed to proceed with the procedure and signed the consent. IV was started. The operative site was marked. Patient was taken to the OR and time out was completed. The patient was placed in the prone position on the procedure table. The lumber area was prepped and draped in the usual sterile fashion. . Vital signs were closely monitored during the procedure .IV sedation was used during the procedure to decrease patients anxiety. Using AP and then oblique fluoroscopy, the ``eye of the Panfilo dog corresponding to the connection between the superior and transverse articular processes of the above-mentioned levels were identified, marked, and localized with 1% lidocaine. Subsequently, a 20 -mn radiofrequency cannula with a 10-mm active tip was advanced guided by fluoroscopy to each of the ``eyes of the Panfilo dog at each site then underwent sensory testing at 50 Hz and 0 to 1 volt and motor testing at 2.5 Hz and 0 to 3 volt with local stimulation, but no radicular symptoms down the legs. Then the sites underwent radiofrequency thermocoagulation at 80 degrees celsius for 90 seconds after injecting 0.5 ml of PF lidocaine 1%. then After the thermocoagulation done , 1 ml of the block solution containing depomedrol 40 mg and 4 ml of marcaine 0.5% was injected in divided doses at each levels after negative aspiration of CSF and blood and with no paresthesias. Sterile dressings were applied. COMPLICATIONS: No acute complications. DISPOSITION / PLANS: The patient was placed in a supine position and transferred to the recovery area in a stable condition for observation and was discharged from the recovery room after meeting discharge criteria. Home discharge instructions given to the patient by the staff. The patient was reexamined prior to discharge.
--- NOTE | 2018-10-29 18:20 | CDI ---
Outpatient Documentation Clarification Form Date: 10/29/18 CDS/Fiber Analyst Name: Yari Gonsalez Phone: If any questions, call Jaci Reinoso Teletype Installer at [phone] Patient Name: Cisco Gutierrez Admit Date: 10/27/18 Discharge Date: 10/27/18 ATTENTION: The [facility] Coding Staff appreciate your assistance in clarifying documentation. Please respond to the clarification below the line at the bottom and electronically sign. The [facility] Coding staff will review the response and follow-up if needed. Please note: Queries are made part of the Legal Health Record. If you have any questions, please contact the Teletype Installer. Dear Dr. Walker, How many separate levels were injected/ablated? For example, 1 level would be labeled L3-L4. Documenting L4, L5, and sacral ala isnt clear because L4 could potentially mean L3-L4 or L4-L5. Please clarify. Thank you for your kind consideration. L4-5, L5-S1 and Sacral Ala locations. Thanks! LAURENT
== END 2018-10-27 11:03 | disposition home or self-care (01) ==
LOC: ORPAIN 09:13
PROVIDERS: ATTEND Pain Medicine Pain Medicine
DX: M47.816 Spondylosis without myelopathy or radiculopathy, lumbar region (principal); I10 Essential (primary) hypertension; Z88.0 Allergy status to penicillin
CPT/HCPCS: 64635; 64636; J2250; J1030; J2001; J3010; 99152; 99153

== ENCOUNTER → 2018-11-11 | Outpatient (CLI) | payer OTHER ==
[2018-11-11 14:59] VITALS: BP 166/97; PULSE 97; RESP 16
--- NOTE | 2018-11-12 10:03 | P.PN ---
Subjective Progress Note Date: 11/11/18 This is follow-up visit for this 58 years old male with a chronic history of severe low back pain, is diagnosed with sacroiliitis and lumbar spondylosis we have done radiofrequency ablation of the sacroiliac joint,a few weeks ago we have done radiofrequency ablation of the median branch lumbar area, he reported that his low back pain improved significantly, and his activity of daily livings improved , he continued to have some low back pain,, he denies any motor or sensory deficit he denies any fever or night sweats. Denies any change in the bowel movement or urination, he used pain medication Orient 7.5/ 325 every 12 hours when necessary, and naproxen 500 mg twice a day, he denies any side effect of the medication he denies any suicidal ideation, and he reported the current pain medication helping him to control his pain and improve quality of life Physical Examinations : 1-Constitutiona : Cooperative , not in acute distress . 2-HEENT : nech ; supple , no Lymphadenopathy , normal thyroid size . eyes : no ptosis , no icterus , no photophobia . ENT : normal of hearing , normal oropharynx , no Thrush . 3- Respiratory : Chest clear to auscultations Bilaterally , no wheezing , no Rhonchi . 4- Cardiovascular : regular rate and rhythem , S1 , S2 , no S3 , no S4. 5- Gastrointestinal : abdomen soft no tenderness , bowel sounds , no organomegally . 6- Genitourinary : Defferred . 7- neurologic : Cranial nerve II to XII intact , no focal neurological deffecit . 8-psychatric : alert , oriented X 3 , appropriate affect , intact judgment and insight . 9-Lymphatic : no Lymphadenopathy . 10- musculoskeltal : Lumber spine moter stegnth lower extremities ,thigh and legs 5/5 Right side , 5/5 Left side deep tendon reflexes : normal Knee Jerk , normal ankle Jerk positive lumber facet Loading Test Range of motion of the lumbar spine Flexion 30 degrees, extension 10 degrees strait leg raising test negative bilaterally Fabere test negative bilaterally . Assessment and plan= chronic low back pain secondary to sacroiliitis, lumbar spondylosis with lumbar facet arthropathy . Patient report that the pain improvement after the radiofrequency of the medial branch lumbar area ,activity of daily livings and controlled chronic and current use of high-risk medication (opioids) Patient denies any side effects of the current pain medication and the current treatment/medication helping the patient to do activity of daily living , Diagnoses, prognosis, treatment options, including but not limited to physical therapy, medication management, interventional therapies, and surgery, were discussed with the patient All the questions answered The narcotic consent was signed and patient agreed and understood the side effects and complications of opioid treatment. Patient signed the narcotic agreement, and was orally counseled, not to overuse, not to abuse, not to Divert , not tp sell pain medication, and to take it as prescribed only, Patient was counseled not to drive or operate heavy equipment while using narcotic medication, and advised not to use alcohol or any Illicit drugs while using the narcotis, understanding that lack of compliance with any of the above instructions, will likely to cause discharge from, the pain service, not to renew his narcotic prescriptions MAPS Reviwed and it was apropriate . Medication managements= refill for Orient 7.5/325 dispense 60 with 1 refill, and naproxen 500 mg dispense 60 with one refill Procedure= none , PQRS Measure Charge Sheet Measure #130: Documentation of Current Meds in Medical Chart: Patient's medications documented in chart Measure #226: Tobacco Use: Screen & Cessation Intervention: Pt screened for tobacco use AND intervention given Measure #111: Pneumonia Vaccination: Pneumococcal vaccine administered or previously received Measure #47: Advance Care Plan: Advance care planning discussed & documented, pt chose/unable to give Measure #412: Opioid Treatment Agreement: Documented signed opioid trtmnt agreemnt min once during opioid trtmnt Measure #408: Opioid Therapy Follow-up Evaluation: Patient had f/u eval minimum every 3 months during opioid therapy Measure #317: Preventitive Care & Scrn High Bld Press & F/U: Pre-hypertensive or hypertensive BP documented, pt will f/u with PCP Measure #128: Body Mass Index (BMI) Screening & Follow-up: BMI documented ABOVE normal parameters - f/u documented Measure #131: Pain Assessment & Follow-up: Pain positive & plan documented, Follow-up scheduled Measure #431: Unhealthy Alcohol Use Preventative Care & Scrn: Patient not identified as an unhealthy alcohol user PQRS Narrative: - Controlled Substance Measures Is patient prescribed a controlled substance at discharge?: Yes When asked, does pt state using other controlled substances?: No If prescribed controlled substance>3 days was MAPS reviewed?: Yes If Rx opioid, was Start Talking consent form obtained?: Yes If opioid is for acute pain is fill amount 7 days or less?: No Was information provided regarding opioid addiction?: Yes Objective - Vital Signs Vital signs: Vital Signs Temp Pulse 97 11/11/18 14:50 Resp 16 11/11/18 14:50 BP 166/97 11/11/18 14:50 Pulse Ox 96 11/11/18 14:50 Intake & Output 11/11/18 11/12/18 11/12/18 18:59 06:59 18:59 Weight 68.039 kg
== END | disposition home or self-care (01) ==
LOC: PNWHC3 14:02
PROVIDERS: ATTEND Specialist
DX: G89.29 Other chronic pain (principal); M46.1 Sacroiliitis, not elsewhere classified; M47.816 Spondylosis without myelopathy or radiculopathy, lumbar region; M46.96 Unspecified inflammatory spondylopathy, lumbar region; Z79.891 Long term (current) use of opiate analgesic
CPT/HCPCS: 99211

== ENCOUNTER → 2019-01-06 | Outpatient (CLI) | payer OTHER ==
[2019-01-06 14:28] VITALS: BP 167/99; PULSE 96; RESP 16
--- NOTE | 2019-01-06 14:47 | P.PN ---
Subjective Progress Note Date: 01/06/19 This is a 58-year-old gentleman with history of axial lower back pain due to lumbar spondylosis without myelopathy and degenerative disc disease. The patient also is a heavy smoker. He had good relief of his pain after the last medial branch RFA however he still takes Erie twice a day to control his pain. Today, pt denies new-onset weakness, bowel/bladder incontinence, or any other signs or symptoms of cauda equina syndrome. There are no signs of acute intoxication, and no indications of medication diversion or overuse. In addition to above, 13-point review of systems is also negative for chest pain , shortness of breath, changes in vision, changes in hearing, new onset weakness , abdominal pain, diarrhea, extreme fatigue, malaise, fever, skin changes, homicidal or suicidal ideation, or bowel or bladder incontinence. Vital Signs: Reviewed in EMR Gen: AAOx3, NAD HEENT: PERRLA,hearing grossly normal Pulm: resp unlabored,CTA Heart:S1,S2, No Mur Neck: supple, trachea midline Neuro exam of the lower extremities: Normal and symmetrical knee reflexes, absent ankle reflexes bilaterally and symmetrically. Normal muscle strength in the lower extremities. Straight leg raising test: Zenon's test: Range of motion of the lumbar spine: Reduced Facet loading test: Tenderness in the paravertebral musculature: Positive tenderness in the lumbar paravertebral area. Neuro: CN II-XII grossly intact, Imaging: Reviewed in EMR/chart Assessment: Lumbar spondylosis without myelopathy Lumbar degenerative disc disease Tobacco abuse Opioid dependence Plan: 1. Explanation: Opioid and psychological risk scores were reviewed. Diagnoses , prognoses, and multiple treatment options including but not limited to physical therapy, interventional therapies, adjuvant medical therapies, narcotic medication therapies, and surgery were discussed with the patient and all questions were answered to the patient's satisfaction. 2. Opioid agreement: Signed with the patient and the patient is warned not to use opioids while driving or before driving and not to combine opioids with benzodiazepines or alcohol. 3. Counseling: The patient was counseled extensively on SMOKING CESSATION, BODY MASS INDEX, EXERCISE. Specifically, the patient was instructed regarding the importance of smoking cessation, obesity, and exercise in the context of both chronic pain and overall health. 4. Procedures: None at this point 5. Consultations: None 6. Investigations: None 7. Medications: Continue Erie 7.5 mg twice a day as needed for pain. 8. Disposition: Return to clinic in 8 weeks 9. Maps were reviewed and were appropriate. PQRS measures: 1-Patient's medications are documented in the chart. 2-Tobacco use is positive, counseling given 3-Patient has had a pneumococcal vaccine. 4-Advanced care planning discussed, patient unable to give 5-Opioid contract signed with the patient. 6-Pain positive, follow-up visit or procedure scheduled 7-Patient's blood pressure measured and documented above normal limits. The patient will follow up with his primary care physician. 8-Patient's weight was measured, and body mass index ABOVE the normal limits, and counseling was done. Patient instructed to follow up with PCP. 9-Patient WAS NOT identified as an unhealthy alcohol user. Controlled Substance Measures Is patient prescribed a controlled substance at discharge?: Yes When asked, does pt state using other controlled substances?: No If prescribed controlled substance>3 days was MAPS reviewed?: Yes If Rx opioid, was Start Talking consent form obtained?: Yes If opioid is for acute pain is fill amount 7 days or less?: No Was information provided regarding opioid addiction?: Yes Objective - Vital Signs Vital signs: Vital Signs Temp Pulse 96 01/06/19 14:20 Resp 16 01/06/19 14:20 BP 167/99 01/06/19 14:20 Pulse Ox 95 01/06/19 14:20 Intake & Output 01/05/19 01/06/19 01/06/19 18:59 06:59 18:59 Weight 68.039 kg
== END | disposition home or self-care (01) ==
LOC: PNWHC3 13:43
PROVIDERS: ATTEND Anesthesiology
DX: M51.36 Other intervertebral disc degeneration, lumbar region (principal); M47.816 Spondylosis without myelopathy or radiculopathy, lumbar region; F11.20 Opioid dependence, uncomplicated; F17.200 Nicotine dependence, unspecified, uncomplicated; Z98.890 Other specified postprocedural states
CPT/HCPCS: 99211

== ENCOUNTER → 2019-03-03 | Outpatient (CLI) | payer OTHER ==
[2019-03-03 15:21] VITALS: BP 157/99; PULSE 100; RESP 16
--- NOTE | 2019-03-03 15:43 | P.PAINPG ---
Subjective Progress Note Date: 03/03/19 This is a follow-up visit for this 58 years old male with a chronic history of severe low back pain diagnosed with lumbar spondylosis, and lumbar facet arthropathy, lumbar degenerative disc disease, and right knee arthralgia, previously we have been radiofrequency ablation of the medial branch lumbar area and we have done radiofrequency ablation of genicular nerves, currently patient complaining of increased low back pain which increases with any activity, he continued to use [place] 7.5/25 twice a day and naproxen 500 mg twice a day when necessary he denies any side effects of the medication, he denies any excessive drowsiness to place he denies any suicidal ideation Objective - Vital Signs Vital signs: Vital Signs Temp Pulse 100 03/03/19 15:17 Resp 16 03/03/19 15:17 BP 157/99 03/03/19 15:17 Pulse Ox 97 03/03/19 15:17 Intake & Output 03/02/19 03/03/19 03/03/19 18:59 06:59 18:59 Weight 68.039 kg - Exam Physical Examinations : -Constitutiona : Cooperative , not in acute distress . -HEENT : nech ; supple , no Lymphadenopathy , normal thyroid size . eyes : no ptosis , no icterus, no photophobia . ENT : normal of hearing , normal oropharynx , no Thrush . - Respiratory : Chest clear to auscultations Bilaterally , no wheezing , no Rhonchi . - Cardiovascula : regular rate and rhythem , S1 , S2 , no S3 , no S4. - Gastrointestina : abdomen soft no tenderness , bowel sounds , no organomegally . - Genitourinary : Defferred . - neurologic : Cranial nerve II to XII intact , no focal neurological deffecit . -psychatric : alert , oriented X 3 , appropriate affect , intact judgment and insight . -Lymphatic : no Lymphadenopathy . - musculoskeltal : Lumber spine moter stegnth lower extremities ,thigh and legs 5/5 Right side , 5/5 Left side deep tendon reflexes : normal Knee Jerk , normal ankle Jerk positive lumber facet Loading Test Range of motion of the lumbar spine Flexion 30 degrees, extension 10 degrees strait leg raising test , positive at 60 degree Fabere test positive RT and positive LT . Sever tenderness over the Sacroiliac joint on the R and L sides Ga[place]len test positive bilaterally. Seated flexion test positive bilaterally. Right knee = flexion and extension mobility associated with some pain No swelling,no erythema, and no effusion Assessment and Plan Plan: Assessment and plan= chronic low back pain secondary to lumbar degenerative disc disease , lumbar spondylosis with lumbar facet arthropathy . Right knee arthralgia chronic and current use of high-risk medication (opioids) Patient denies any side effects of the current pain medication and the current treatment/medication helping the patient to do activity of daily living , Diagnoses, prognosis, treatment options, including but not limited to physical therapy, medication management, interventional therapies, and surgery, were discussed with the patient All the questions answered The narcotic consent was signed and patient agreed and understood the side effects and complications of opioid treatment. Patient signed the narcotic agreement, and was orally counseled, not to overuse, not to abuse, not to Divert , not tp sell pain medication, and to take it as prescribed only, Patient was counseled not to drive or operate heavy equipment while using narcotic medication, and advised not to use alcohol or any Illicit drugs while using the narcotis. understanding that lack of compliance with any of the above instructions, will likely to cause discharge from, the pain service, not to renew his narcotic prescriptions MAPS Reviwed and it was apropriate . Medication managements= patient will be given prescription refills for Percocet 7.5/325 every 12 hours discussed 60 with 1 refill and naproxen 500 mg twice a day dispense 60 with one refill Patient could benefit from lumbar epidural steroid injections under fluoroscopy guidance x2 , if he had no benefit from it. Will do repeat RFA of the lumbar medial branch Also patient had increase of the right knee pain patient would be good candidate in the future to have repeat RFA of the right genicular nerve , Time with Patient: Less than 30 PQRS Measure Charge Sheet Measure #130: Documentation of Current Meds in Medical Chart: Patient's medications documented in chart Measure #226: Tobacco Use: Screen & Cessation Intervention: Pt screened for tobacco use AND intervention given Measure #111: Pneumonia Vaccination: Pneumococcal vaccine administered or previously received Measure #47: Advance Care Plan: Advance care planning discussed & documented, pt chose/unable to give Measure #412: Opioid Treatment Agreement: Documented signed opioid trtmnt agreemnt min once during opioid trtmnt Measure #408: Opioid Therapy Follow-up Evaluation: Patient had f/u eval minimum every 3 months during opioid therapy Measure #317: Preventitive Care & Scrn High Bld Press & F/U: Pre-hypertensive or hypertensive BP documented, pt will f/u with PCP Measure #128: Body Mass Index (BMI) Screening & Follow-up: BMI documented ABOVE normal parameters - f/u documented Measure #131: Pain Assessment & Follow-up: Pain positive & plan documented, Follow-up scheduled Measure #431: Unhealthy Alcohol Use Preventative Care & Scrn: Patient not identified as an unhealthy alcohol user PQRS Narrative: Smoking Status Current every day smoker Do You Want the Pneumonia No Vaccine AT THIS TIME? Narcotic Agreement Date Signed 08/24/18 Blood Pressure 157/99 Pain Intensity [Bilateral 7 Lower Back] Scale Used Numeric (1 - 10) Hx Alcohol Use (MH) Yes: occ Home Medications: Ambulatory Orders Aspirin/Acetaminophen/Caffeine [Excedrin Migraine Caplet] 1 tab PO DIRECTED PRN 12/19/16 Losartan Potassium 50 mg PO QAM 11/24/17 Butalbital/Aspirin/Caffeine [Fiorinal 50-325-40 MG] 1 cap PO Q4H PRN 10/06/18 HYDROcodone/APAP 7.5-325MG [[place] 7.5-325] 1 tab PO Q12H PRN 30 Days #60 tab 11/11/18 Hydrocodone/Acetaminophen [[place] 7.5-325] 1 tab PO Q12HR PRN 30 Days #60 tab 11/11/18 Naproxen [Naprosyn] 500 mg PO Q12HR PRN #60 tablet 11/11/18 Controlled Substance Measures - Controlled Substance Measures Is patient prescribed a controlled substance at discharge?: Yes When asked, does pt state using other controlled substances?: No If prescribed controlled substance>3 days was MAPS reviewed?: Yes If Rx opioid, was Start Talking consent form obtained?: Yes If opioid is for acute pain is fill amount 7 days or less?: No Was information provided regarding opioid addiction?: Yes
== END ==
LOC: PNWHC3 14:20
PROVIDERS: ATTEND Specialist
DX: G89.29 Other chronic pain (principal); M51.36 Other intervertebral disc degeneration, lumbar region; M47.816 Spondylosis without myelopathy or radiculopathy, lumbar region; M46.96 Unspecified inflammatory spondylopathy, lumbar region; M25.561 Pain in right knee; F17.200 Nicotine dependence, unspecified, uncomplicated; Z79.899 Other long term (current) drug therapy; Z79.82 Long term (current) use of aspirin; Z79.891 Long term (current) use of opiate analgesic
CPT/HCPCS: 99211

== ENCOUNTER 2019-03-15 05:58 | Day surgery (SDC) | payer OTHER ==
[2019-03-10 12:43] VITALS: BMI 26.5
[~2019-03-15 05:58] MED LIST changes: +LACTATED RINGERS 1,000 ML IV SCH; -SODIUM CHLORIDE 0.9% 500 ML 500 ML IV SCH
[2019-03-15 06:17] VITALS: RESP 18; TEMP 98
[2019-03-15] MEDS ORDERED: LIDOCAINE 1% 20 ML VIAL (10MG/ML) FOR IV START INTRADERMA ONE (06:17)
[2019-03-15] MEDS ORDERED: LACTATED RINGERS 1,000 ML IV ONE (06:17)
--- NOTE | 2019-03-15 07:11 | P.PCN ---
Date of Procedure: 03/15/19 Procedure(s) Performed: PREOPERATIVE DIAGNOSIS: 1- Lumbar Degenerative Disc Diseases 2-Lumbar spondylosis with Facet arthropathy without myelopathy POSTOPERATIVE DIAGNOSIS: 1-Lumber Degenerative Disc Diseases 2-Lumbar spondylosis with Facet arthropathy without myelopathy PROCEDURE 1. Lumbar epidural steroid injection under fluoroscopic guidance at the L5-S1 level. 2. Lumbar epidurogram. ANESTHESIA: Local with 1% lidocaine 3 ml and , moderate sedation with intravenous Versed 2 mg ,and fentanyle 100 Mcg EBL: Minimal PROCEDURE INDICATION: The patient with low back pain and radiculitis symptoms unresponsive to conservative treatment. Fluoroscopy was used to optimize visualization of the needle placement and to maximize safety. PROCEDURE DESCRIPTION / TECHNIQUE: The patient was seen and identified in the preoperative area. Risks, benefits, complications including but not limited to infections ,bleeding ,allergic reaction to the medications ,nerve damage and not complete pain releife , and alternatives were discussed with the patient. The patient agreed to proceed with the procedure and signed the consent. IV was started, and vital signs were stable. Patient was taken to the OR and time out was completed. The patient was placed in the prone position on procedure table and a pillow was placed under the abdomen to reduce lumbar lordosis. The lumbosacral area was prepped and draped in the usual sterile fashion.ere closely monitored during the procedure. Conscious sedation was used during the procedure to decrease patients anxiety. Vital signs was monitered during the entire procedure. Using anterior-posterior fluoroscopy, the L5-S1 interlaminar space was identified and the skin over this site was marked and then infiltrated with 1% lidocaine subcutaneously. Subsequently, a 20-gauge Tuohy epidural needle was inserted and advanced toward the epidural space using the ``Loss of resistance technique and guided by AP and lateral fluoroscopy. The correct needle position in the epidural space was verified with the injection of 2 mL of the water soluble contrast dye Isovue 200 contrast and observing an excellent epidurogram with the epidural spread of the dye, after negative aspiration for blood and CSF and in the absence of paresthesias. Again after negative aspiration, a 6 ml mixture containing 80 mg of Depo-medrol , and 2 ml of preservative free Normal Saline, and 2 ml of preservative free lidocaine 1% solution was injected and a washout of epidurogram was seen. Needle was withdrawn intact, skin was cleansed, and bandages were applied. COMPLICATIONS: None DISPOSITION / PLANS: The patient was placed in a supine position and transferred to the recovery area in a stable condition for observation. There was no evidence of lower extremity motor or sensory deficit after the procedure. Patient was discharged from the recovery room after meeting discharge criteria. Home discharge instructions were given to the patient by the staff. The patient was reexamined prior to discharge. The patient will schedule a follow up in the clinic in 2-4 weeks.
[2019-03-15] MEDS ORDERED: IV FLUID CONTINUATION 1,000 ML IV ONE (07:14)
[2019-03-15 07:21] VITALS: PULSE 92
[2019-03-15 07:32] VITALS: BP 148/91
--- NOTE | 2019-03-15 08:41 | FL ---
Fluoroscopy HISTORY: Pain 2 seconds fluoroscopy time supplied to the referring clinician. 1 intraoperative C-arm images docume nt the procedure. See dictated report from anesthesia.
== END 2019-03-15 07:53 | disposition home or self-care (01) ==
LOC: ORPAIN 05:58
PROVIDERS: ATTEND Specialist
DX: M47.816 Spondylosis without myelopathy or radiculopathy, lumbar region (principal); M51.36 Other intervertebral disc degeneration, lumbar region; Z88.0 Allergy status to penicillin; Z88.8 Allergy status to other drugs, medicaments and biological substances
CPT/HCPCS: 62323; J2250; J1100; J3010; Q9966

== ENCOUNTER 2019-03-29 07:17 | Day surgery (SDC) | payer OTHER ==
[2019-03-25 16:07] VITALS: BMI 26.5
[2019-03-29] MEDS ORDERED: LIDOCAINE 1% 20 ML VIAL (10MG/ML) FOR IV START INTRADERMA ONE (07:41)
[2019-03-29 07:51] VITALS: RESP 16; TEMP 98.3
[2019-03-29] MEDS ORDERED: LACTATED RINGERS 1,000 ML IV ONE (07:52)
--- NOTE | 2019-03-29 08:04 | P.PCN ---
Date of Procedure: 03/29/19 Description of Procedure: PREOPERATIVE DIAGNOSIS: 1-lumbar radiculopathy POSTOPERATIVE DIAGNOSIS: Lumbar radiculopathy PROCEDURE 1. Lumbar epidural steroid injection under fluoroscopic guidance at the L 5/S1 level. 2. Lumbar epidurogram. ANESTHESIA: Local with 1% lidocaine 5 ml and conscious sedation 2mg versed, 100mcg of fentanyl EBL: Minimal PROCEDURE INDICATION: The patient with low back pain and radiculitis symptoms unresponsive to conservative treatment. Fluoroscopy was used to optimize visualization of the needle placement and to maximize safety. PROCEDURE DESCRIPTION / TECHNIQUE: The patient was seen and identified in the preoperative area. Risks, benefits, complications including but not limited to infections ,bleeding ,allergic reaction to the medications ,nerve damage and incomplete pain relief , as well as alternatives to the procedure were discussed with the patient. The patient agreed to proceed with the procedure and signed the consent. IV was started, and vital signs were stable. Patient was taken to the OR and time out was completed. The patient was placed in the prone position on procedure table and a pillow was placed under the abdomen to reduce lumbar lordosis. The lumbosacral area was prepped and draped in the usual sterile fashion. Vitals were closely monitored during the procedure. Using anterior-posterior fluoroscopy, the L 5/1 interlaminar space was identified and the skin over this site was marked and then infiltrated with 1% lidocaine subcutaneously. Subsequently, a 20-gauge Tuohy epidural needle was inserted and advanced toward the epidural space using the ``Loss of resistance technique and guided by AP and lateral fluoroscopy. The correct needle position in the epidural space was verified with the injection of 1 mL of the water soluble contrast dye Omnipaque 180 contrast and observing an excellent epidurogram with the epidural spread of the dye, after negative aspiration for blood and CSF and in the absence of paresthesias. Again after negative aspiration, a 4 ml mixture containing 40 mg of Depo-Medrol and 3 ml of preservative free Normal Saline was injected and a washout of epidurogram was seen. Needle was withdrawn intact, skin was cleansed, and bandages were applied. COMPLICATIONS: None DISPOSITION / PLANS: The patient was placed in a supine position and transferred to the recovery area in a stable condition for observation. There was no evidence of lower extremity motor or sensory deficit after the procedure. Patient was discharged from the recovery room after meeting discharge criteria. Home discharge instructions were given to the patient by the staff. The patient was reexamined prior to discharge. Follow-up for med refills on 04/28/2019.
[2019-03-29] MEDS ORDERED: IV FLUID CONTINUATION 1,000 ML IV ONE (08:21)
[2019-03-29 08:26] VITALS: BP 128/85; PULSE 91
--- NOTE | 2019-03-29 08:41 | FL ---
EXAMINATION TYPE: FL guided pain mgmt statistic DATE OF EXAM: 03/29/2019 HISTORY: Flouroscopy time 3 seconds of fluoroscopy provided. IMPRESSION: 1. Fluoroscopy time.
== END 2019-03-29 08:32 | disposition home or self-care (01) ==
LOC: ORPAIN 07:17
PROVIDERS: ATTEND Hospitalist
DX: G89.29 Other chronic pain (principal); M47.26 Other spondylosis with radiculopathy, lumbar region; M51.16 Intervertebral disc disorders with radiculopathy, lumbar region; F17.200 Nicotine dependence, unspecified, uncomplicated; Z79.891 Long term (current) use of opiate analgesic; Z79.899 Other long term (current) drug therapy; Z88.0 Allergy status to penicillin; Z88.8 Allergy status to other drugs, medicaments and biological substances
CPT/HCPCS: 62323; J2250; J1030; J3010; Q9966

== ENCOUNTER → 2019-04-28 | Outpatient (CLI) | payer OTHER ==
[2019-04-28 12:32] VITALS: BP 155/97; PULSE 107; RESP 16
--- NOTE | 2019-04-28 12:50 | P.PAINPG ---
Subjective Progress Note Date: 04/28/19 Cisco is a 58-year-old gentleman presenting today for follow-up. His chief complaint is regarding his low back pain. He is status post lumbar epidural steroid injection 2 and has good relief. He reports his VAS and encouraging to in 4-10 now. He uses [place] as needed 1-2 tablets per day. He also supplements with naproxen every other day or so. His pain is under control. He denies any new symptoms. His back pain treated initially has been across his low back and into his legs usually worse with walking and standing and better with rest. He reports that his pain is under good control at this time with the current medication regimen and interventional techniques. He like to hold off on any other procedures at this point. He like a refill on his medications. He denies any side effects from the medications. Objective - Vital Signs Vital signs: Vital Signs Temp Pulse 107 H 04/28/19 12:27 Resp 16 04/28/19 12:27 BP 155/97 04/28/19 12:27 Pulse Ox 96 04/28/19 12:27 Intake & Output 04/27/19 04/28/19 04/28/19 18:59 06:59 18:59 Weight 68.039 kg - Exam General: Awake and alert oriented 3 no distress Respiratory exam: No audible wheezing no accessory muscle usage Cardiovascular exam: regular rate, palpable bilateral pulses, no lower extremity edema Abdominal exam: No distention nontender to palpation Cervical spine: Normal alignment, Spurling's negative, facet loading negative, Psychiatric Cns strength is 5/5, garcia negative Lumbar spine: Loss of lumbar lordosis, normal alignment, tender to palpation over bilateral paraspinal muscles, facet loading is positive bilaterally. Straight leg raise is negative. Limited range of motion due to pain with flexion, extension and side bending. Sacroiliac joints: Nontender to palpation, BERNARDO is negative, Gaenselon negative Neuro exam: Normal sensation in bilateral upper extremities, deep tendon reflexes are 2+ bilateral upper extremities. Normal sensation in bilateral lower extremities. Deep tendon reflexes are 2+ in lower extremities Psych exam: Cooperative, appropriate mood Assessment and Plan Assessment: #1 lumbar radiculopathy #2 lumbar spondylosis without myelopathy #3 chronic opioid dependence Plan: Bruna is doing well with the interventional techniques and medication management. We'll hold off on any other injections at this time. I will refill his [place] 7.5 mg #60 tablets for the next 2 months. He does not need a refill and naproxen today. If he does run out at some point he can give us a call he can refill that for him. I advised him that he takes naproxen regularly he should make sure to stay hydrated and follow-up with his primary care physician to evaluate kidney function. Follow-up in 2 months time PQRS Measure Charge Sheet Measure #130: Documentation of Current Meds in Medical Chart: Patient's medications documented in chart Measure #226: Tobacco Use: Screen & Cessation Intervention: Pt screened for tobacco use AND intervention given Measure #111: Pneumonia Vaccination: Pneumococcal vaccine administered or previously received Measure #47: Advance Care Plan: Advance care planning discussed & documented, plan or surrogate given Measure #412: Opioid Treatment Agreement: Documented signed opioid trtmnt agreemnt min once during opioid trtmnt Measure #408: Opioid Therapy Follow-up Evaluation: Patient had f/u eval minimum every 3 months during opioid therapy Measure #317: Preventitive Care & Scrn High Bld Press & F/U: Normal blood pressure, f/u not required Measure #128: Body Mass Index (BMI) Screening & Follow-up: BMI documented within normal parameters Measure #131: Pain Assessment & Follow-up: Pain positive & plan documented, Follow-up scheduled Measure #431: Unhealthy Alcohol Use Preventative Care & Scrn: Patient not identified as an unhealthy alcohol user PQRS Narrative: Smoking Status Current every day smoker Narcotic Agreement Date Signed 08/24/18 Blood Pressure 155/97 Pain Intensity [Bilateral 4 Lower Back] Scale Used Numeric (1 - 10) Hx Alcohol Use (MH) Yes: occ Home Medications: Ambulatory Orders Aspirin/Acetaminophen/Caffeine [Excedrin Migraine Caplet] 1 tab PO DIRECTED PRN 12/19/16 Butalbital/Aspirin/Caffeine [Fiorinal 50-325-40 MG] 1 cap PO Q4H PRN 10/06/18 HYDROcodone/APAP 7.5-325MG [[place] 7.5-325] 1 tab PO Q12H PRN 30 Days #60 tab 11/11/18 Naproxen [Naprosyn] 500 mg PO Q12HR PRN #60 tablet 11/11/18 Losartan Potassium 100 mg PO QAM 03/25/19 Controlled Substance Measures - Controlled Substance Measures Is patient prescribed a controlled substance at discharge?: Yes When asked, does pt state using other controlled substances?: No If prescribed controlled substance>3 days was MAPS reviewed?: Yes If Rx opioid, was Start Talking consent form obtained?: Yes If opioid is for acute pain is fill amount 7 days or less?: No Was information provided regarding opioid addiction?: Yes
== END ==
LOC: PNWHC3 12:17
PROVIDERS: ATTEND Hospitalist
DX: M47.26 Other spondylosis with radiculopathy, lumbar region (principal); F17.200 Nicotine dependence, unspecified, uncomplicated; Z71.6 Tobacco abuse counseling; Z79.891 Long term (current) use of opiate analgesic; Z79.82 Long term (current) use of aspirin; Z79.899 Other long term (current) drug therapy
CPT/HCPCS: 99211

== ENCOUNTER → 2019-06-23 | Outpatient (CLI) | payer OTHER ==
--- NOTE | 2019-06-23 14:06 | P.PN ---
Subjective Progress Note Date: 06/23/19 This is a 59-year-old gentleman with history of chronic lower back pain with no radiation to the lower extremities. The patient also denies any numbness or tingling in the lower extremities. His pain has been getting worse in the lower back area after short period of improvement from his lumbar epidural steroid injection however he had lumbar medial branch RFA previously which helped his pain and the last one he had was in September 2018. Today, pt denies new-onset weakness, bowel/bladder incontinence, or any other signs or symptoms of cauda equina syndrome. There are no signs of acute intoxication, and no indications of medication diversion or overuse. In addition to above, 13-point review of systems is also negative for chest pain, shortness of breath, changes in vision, changes in hearing, new onset weakness, abdominal pain, diarrhea, extreme fatigue, malaise, fever, skin changes, homicidal or suicidal ideation, or bowel or bladder incontinence. Vital Signs: Reviewed in EMR Gen: AAOx3, NAD HEENT: PERRLA,hearing grossly normal Pulm: resp unlabored,CTA Heart:S1,S2, No Mur Neck: supple, trachea midline Neuro exam of the lower extremities: Normal muscle strength in the lower extremities Straight leg raising test: Zenon's test: Range of motion of the lumbar spine: Facet loading test: Tenderness in the paravertebral musculature: Significant tenderness in the lumbar paravertebral musculature bilaterally. Neuro: CN II-XII grossly intact, Imaging: Reviewed in EMR/chart Assessment: Lumbar spondylosis without myelopathy Plan: 1. Explanation: Opioid and psychological risk scores were reviewed. Diagnoses, prognoses, and multiple treatment options including but not limited to physical therapy, interventional therapies, adjuvant medical therapies, narcotic medication therapies, and surgery were discussed with the patient and all questions were answered to the patient's satisfaction. 2. Opioid agreement: Signed with the patient and the patient is warned not to use opioids while driving or before driving and not to combine opioids with benzodiazepines or alcohol. 3. Counseling: The patient was counseled extensively on SMOKING CESSATION, BODY MASS INDEX, EXERCISE. Specifically, the patient was instructed regarding the importance of smoking cessation, obesity, and exercise in the context of both chronic pain and overall health. 4. Procedures: Scheduled for left lumbar medial branch RFA for levels L3 4, L4- L5, L5-S1 under fluoroscopic guidance. The patient will come back a few weeks after that for the right side to be done. 5. Consultations: None 6. Investigations: None 7. Medications: Continue [place] twice a day and I will decrease his naproxen to once a day 8. Disposition: Return to the above-mentioned procedure as soon as possible 9. Maps were reviewed and were appropriate. Controlled Substance Measures Is patient prescribed a controlled substance at discharge?: Yes When asked, does pt state using other controlled substances?: No If prescribed controlled substance>3 days was MAPS reviewed?: Yes If Rx opioid, was Start Talking consent form obtained?: Yes If opioid is for acute pain is fill amount 7 days or less?: No Was information provided regarding opioid addiction?: Yes Objective - Vital Signs Vital signs: Vital Signs Temp Pulse 105 H 06/23/19 13:42 Resp 16 06/23/19 13:42 BP 156/96 06/23/19 13:42 Pulse Ox 99 06/23/19 13:42 Intake & Output 06/22/19 06/23/19 06/23/19 18:59 06:59 18:59 Weight 65.771 kg
== END | disposition home or self-care (01) ==
CPT/HCPCS: 99211

== ENCOUNTER 2019-07-20 06:43 | Day surgery (SDC) | payer OTHER ==
[2019-07-18 09:53] VITALS: BMI 25.7
[2019-07-20 07:39] VITALS: TEMP 98.1
[2019-07-20] MEDS ORDERED: LIDOCAINE 1% 20 ML VIAL (10MG/ML) FOR IV START INTRADERMA ONE (07:42)
--- NOTE | 2019-07-20 08:25 | P.PCN ---
Date of Procedure: 07/20/19 Procedure(s) Performed: PREOPERATIVE DIAGNOSIS: 1-Lumbar Spondylosis with Facet Arthropathy without myelopathy. 2- Lumber degenerative disc disease POSTOPERATIVE DIAGNOSIS: 1- Lumbar Spondylosis with Facet Arthropathy without myelopathy. 2- Lumber degenerative disc disease PROCEDURES : Left Radiofrequency thermocoagulation, L3, L4, and L5 medial branch, ( radiofrequency ablation of the left facet joint L4- 5 ,and L5-S1 ) with fluoroscopic guidance (fluoroscopy images available in the radiology department ) ANESTHESIA: Moderate sedation with intravenous versed 2 mg and fentaneyl 100 mcg, and local infiltration with Ropivacaine 0.5 % . EBL: Minimal PROCEDURE INDICATION: The patient with low back pain secondary to lumbar facet arthropathy who had more than 50% relief of her pain with previous diagnostic lumbar medial branch block with bupivacaine. PROCEDURE DESCRIPTION / TECHNIQUE: The patient was seen and identified in the preoperative area. Risks, benefits, complications, including but not limited to risk of infection ,bleeding , allergic reactions to the medications and no complete pain releife , and alternatives were discussed with the patient, the patient agreed to proceed with the procedure and signed the consent. IV was started. Vital signs remained stable throughout the procedure. Patient was taken to the OR and time out was completed. The patient was placed in the prone position on the procedure table. The lumber area was prepped and draped in the usual sterile fashion. . Vital signs were closely monitored during the procedure .IV sedation was used during the procedure to decrease patients anxiety. Using AP and then oblique fluoroscopy, the ``eye of the Panfilo dog corresponding to the connection between the superior and transverse articular processes of Left L3, L4, and L5 were identified, marked, and localized with 1% lidocaine. Subsequently, a 18 [id number] radiofrequency cannula with a 10-mm active tip was advanced guided by fluoroscopy to each of the``eyes of the Panfilo dog at Left L3, L4, and L5. Each site then underwent sensory testing at 50 Hz and 0 to 1 volt and motor testing at 2.5 Hz and 0 to 3 volt with local stimulation, but no radicular symptoms down the legs. Thereafter the Left L3, L4 , and L5 sites underwent radiofrequency thermocoagulation at 80 degrees celsius for 90 seconds after injecting 0.5 ml of PF Ropivacaine 1ml, then after the thermocoagulation done , 1 ml of the block solution containing Depo-Medrol 40 mg and 3 ml of Ropivacaine 0.5% was injected at the Left L3 , L4 , and L5 , levels after negative aspiration of CSF and blood and with no paresthesias. Cannulas were retracted while injecting lidocaine 1% until the needle is out. At the end of the procedure, the skin was cleansed and bandages were applied. COMPLICATIONS: No acute complications. DISPOSITION / PLANS: The patient was placed in a supine position and transferred to the recovery area in a stable condition for observation and was discharged from the recovery room after meeting discharge criteria. Home discharge instructions given to the patient by the staff. The patient was reexamined prior to discharge. The patient will schedule a follow up in the clinic in 2-4 weeks.
[2019-07-20] MEDS ORDERED: IV FLUID CONTINUATION 1,000 ML IV ONE (08:30)
[2019-07-20 08:47] VITALS: BP 145/88; PULSE 85; RESP 18
--- NOTE | 2019-07-20 09:00 | FL ---
EXAMINATION TYPE: FL guided pain mgmt statistic DATE OF EXAM: 07/20/2019 HISTORY: Flouroscopy time 6 seconds of fluoroscopy provided. IMPRESSION: 1. Fluoroscopy time.
== END 2019-07-20 09:00 | disposition home or self-care (01) ==
LOC: ORPAIN 06:43
PROVIDERS: ATTEND Specialist
DX: M47.816 Spondylosis without myelopathy or radiculopathy, lumbar region (principal); M51.36 Other intervertebral disc degeneration, lumbar region; Z88.0 Allergy status to penicillin; Z88.8 Allergy status to other drugs, medicaments and biological substances
CPT/HCPCS: 64635; 64636; J2250; J1030; J3010; 99152

== ENCOUNTER 2019-08-03 06:42 | Day surgery (SDC) | payer OTHER ==
[2019-07-28 16:05] VITALS: BMI 25.0
[2019-08-03 07:18] VITALS: RESP 16; TEMP 97.5
[2019-08-03] MEDS ORDERED: LACTATED RINGERS 1,000 ML IV ONE ×2 (07:24→08:10)
[2019-08-03] MEDS ORDERED: LACTATED RINGERS 1,000 ML IV SCH (08:00)
[2019-08-03 08:24] VITALS: BP 133/89; PULSE 92
--- NOTE | 2019-08-03 09:10 | FL ---
EXAMINATION TYPE: FL guided pain mgmt statistic DATE OF EXAM: 08/03/2019 CLINICAL HISTORY: Low back pain. TECHNIQUE: Fluoroscopy. COMPARISON: None. FINDINGS: Fluoroscopic guidance was provided during pain relief procedure performed by Dr. Walker . A total of 3 seconds of fluoroscopic time was utilized during the procedure and two spot images are acquired. Images acquired shows needle localization at multiple levels in the lumbar spine. IMPRESSION: As Above.
--- NOTE | 2019-08-03 11:47 | P.PCN ---
Date of Procedure: 08/03/19 Description of Procedure: Procedure(s) Performed: PREOPERATIVE DIAGNOSIS: Lumbar Spondylosis POSTOPERATIVE DIAGNOSIS: Same PROCEDURES: Radiofrequency ablation right L4-5, L5-S1, sacral ala with fluoroscopic guidance SURGEON: Ayad Walker MD. ANESTHESIA: Moderate sedation with intravenous Versed and fentanyl EBL: Minimal PROCEDURE INDICATION: The patient with low back pain secondary to lumbar facet arthropathy who had more than 50% relief of pain with previous diagnostic lumbar medial branch block with bupivacaine. PROCEDURE DESCRIPTION / TECHNIQUE: The patient was seen and identified in the preoperative area. Risks, benefits, complications, including but not limited to risk of infection ,bleeding , allergic reactions to the medications and incomplete pain relief , and alternatives were discussed with the patient, the patient agreed to proceed with the procedure and signed the consent. IV was started. The operative site was marked. Patient was taken to the OR and time out was completed. The patient was placed in the prone position on the procedure table. The lumber area was prepped and draped in the usual sterile fashion. . Vital signs were closely monitored during the procedure .IV sedation was used during the procedure to decrease patients anxiety. Using AP and then oblique fluoroscopy, the ``eye of the Panfilo dog corresponding to the connection between the superior and transverse articular processes of the above-mentioned levels were identified, marked, and localized with 1% lidocaine. Subsequently, a 20 [id number] radiofrequency cannula with a 10-mm active tip was advanced guided by fluoroscopy to each of the ``eyes of the Panfilo dog at each site then underwent sensory testing at 50 Hz and 0 to 1 volt and motor testing at 2.5 Hz and 0 to 3 volt with local stimulation, but no radicular symptoms down the legs. Then the sites underwent radiofrequency thermocoagulation at 80 degrees celsius for 90 seconds after injecting 0.5 ml of PF lidocaine 1%. then After the thermocoagulation done , 1 ml of the block solution containing depomedrol 40 mg and 4 ml of marcaine 0.5% was injected in divided doses at each levels after negative aspiration of CSF and blood and with no paresthesias. Sterile dressings were applied. COMPLICATIONS: No acute complications. DISPOSITION / PLANS: The patient was placed in a supine position and transferred to the recovery area in a stable condition for observation and was discharged from the recovery room after meeting discharge criteria. Home discharge instructions given to the patient by the staff. The patient was reexamined prior to discharge. .
== END 2019-08-03 08:40 | disposition home or self-care (01) ==
LOC: ORPAIN 06:42
PROVIDERS: ATTEND Pain Medicine Pain Medicine
DX: M47.9 Spondylosis, unspecified (principal); Z88.0 Allergy status to penicillin; Z88.8 Allergy status to other drugs, medicaments and biological substances
CPT/HCPCS: 64635; 64636; J2250; J1030; J2001; J3010; 99152

== ENCOUNTER → 2019-08-18 | Outpatient (CLI) | payer OTHER ==
[2019-08-18 13:53] VITALS: BP 169/97; PULSE 104; RESP 18
--- NOTE | 2019-08-18 15:51 | P.PAINPG ---
Subjective Progress Note Date: 08/18/19 This is a 59-year-old gentleman who follows up from his lumbar RFA. He states that he had good pain relief, however this is only for 2 weeks and his pain has come back to her it was. Otherwise he reports no new symptoms. He continues to use his [place] 7.5 twice a day, and reports no adverse side effects of this. In addition to above, 13-point review of systems is also negative for chest pain, shortness of breath, changes in vision, changes in hearing, new onset weakness, abdominal pain, diarrhea, extreme fatigue, malaise, fever, skin changes, homicidal or suicidal ideation, or bowel or bladder incontinence. Objective - Vital Signs Vital signs: Vital Signs Temp Pulse 104 H 08/18/19 13:49 Resp 18 08/18/19 13:49 BP 169/97 08/18/19 13:49 Pulse Ox 95 08/18/19 13:49 - Exam Vital Signs: Reviewed in EMR GENERAL: Wearing sunglasses, he does have tremors in bilateral extremities PSYCH: Mood and affect is appropriate. Awake, alert, and oriented SKIN: Skin color, texture, turgor normal, no rashes or lesions CV: No pedal edema RESP: Respirations are unlabored, no audible wheezing GI: Abdomen non-distended MUSCULOSKELETAL: Bilateral upper and lower extremity strength is normal and symmetric. No atrophy or tone abnormalities are noted. Lumbar spine: Positive to pain to palpation over the lumbar spine and paraspinous muscles. Extremities: Gait: Gait appears to be unsteady NEUR: No loss of sensation is noted. Cranial nerves are grossly intact. Assessment and Plan Assessment: Assessment: 1. Lumbar spondylosis 2. Chronic opiate use Plan: 1. Explanation: Opioid and psychological risk scores were reviewed. Diagnoses, prognoses, and multiple treatment options including but not limited to physical therapy, interventional therapies, adjuvant medical therapies, narcotic medication therapies, and surgery were discussed with the patient and all quest ions were answered to the patient's satisfaction. 2. Opioid agreement: None 3. Counseling: The patient was counseled extensively on BODY MASS INDEX, EXERCISE. Specifically, the patient was instructed regarding the importance of weight control, and exercise in the context of both chronic pain and overall health. 4. Procedures: None, he will only had limited benefit with the RFA 5. Consultations: None 6. Investigations: Reviewed 7. Medications: The patient's affect and tremors were very worrisome to me, I ordered a urine drug screen. However the patient stated he could not urinate. She was sent to lab for a lab draw for drug screen. His [place] dose was reduced from 03/25/2025 twice a day. 8. Disposition: In 8 Weeks for medication refill , PQRS Measure Charge Sheet Measure #408: Opioid Therapy Follow-up Evaluation: Patient had f/u eval minimum every 3 months during opioid therapy Measure #128: Body Mass Index (BMI) Screening & Follow-up: BMI documented within normal parameters Measure #131: Pain Assessment & Follow-up: Pain positive & plan documented, Follow-up scheduled PQRS Narrative: Smoking Status Current every day smoker Narcotic Agreement Date Signed 08/24/18 Blood Pressure 169/97 Pain Intensity [Lower Back] 3 Scale Used Numeric (1 - 10) Hx Alcohol Use (MH) Yes: occ Home Medications: Ambulatory Orders Aspirin/Acetaminophen/Caffeine [Excedrin Migraine Caplet] 1 tab PO DIRECTED PRN 12/19/16 Butalbital/Aspirin/Caffeine [Fiorinal 50-325-40 MG] 1 cap PO Q4H PRN 10/06/18 HYDROcodone/APAP 7.5-325MG [[place] 7.5-325] 1 tab PO Q12H PRN 30 Days #60 tab 11/11/18 Naproxen [Naprosyn] 500 mg PO Q12HR PRN #60 tablet 11/11/18 Losartan Potassium 100 mg PO QAM 03/25/19 Pantoprazole [Protonix] 1 tab PO DAILY 07/28/19 Controlled Substance Measures - Controlled Substance Measures Is patient prescribed a controlled substance at discharge?: Yes When asked, does pt state using other controlled substances?: No If prescribed controlled substance>3 days was MAPS reviewed?: Yes If Rx opioid, was Start Talking consent form obtained?: Yes
== END | disposition home or self-care (01) ==
LOC: PNWHC3 13:14
PROVIDERS: ATTEND Student in an Organized Health Care Education/Training Program
DX: M47.816 Spondylosis without myelopathy or radiculopathy, lumbar region (principal); F17.200 Nicotine dependence, unspecified, uncomplicated; Z98.890 Other specified postprocedural states; Z79.891 Long term (current) use of opiate analgesic; Z79.899 Other long term (current) drug therapy
CPT/HCPCS: 99211

== ENCOUNTER → 2019-08-18 | Outpatient (CLI) | payer OTHER | END | disposition home or self-care (01) | LOC: LABWHC1 15:17 | PROVIDERS: ATTEND Student in an Organized Health Care Education/Training Program | DX: Z51.81 Encounter for therapeutic drug level monitoring (principal); Z79.891 Long term (current) use of opiate analgesic; Z79.899 Other long term (current) drug therapy | CPT/HCPCS: 36415; 80307 ==

== ENCOUNTER → 2019-10-13 | Outpatient (CLI) | payer OTHER ==
[2019-10-13 12:49] VITALS: BP 135/91; PULSE 111; RESP 16
--- NOTE | 2019-10-13 13:17 | P.PN ---
Progress Note - Text Progress Note Date: 10/13/19 This is a follow-up visit for this 59 years old male with a history of low back pain diagnosed with lumbar spondylosis, lumbar facet arthropathy, patient currently on [place] 7.5/325 every 6 hours and recently we have done drug screen, and the drug screen was negative for any opioid in his blood, I discussed with the patient the results of the serum drug screen that it showed that no opioid in his blood for this reason, I will not be able to give him any new prescription for any opioid and patient will be discharged from the pain clinic, this information discussed with the patient , and he understood.
== END | disposition home or self-care (01) ==
LOC: PNWHC3 12:24
PROVIDERS: ATTEND Specialist
DX: G89.29 Other chronic pain (principal); M47.816 Spondylosis without myelopathy or radiculopathy, lumbar region; M46.96 Unspecified inflammatory spondylopathy, lumbar region; Z79.891 Long term (current) use of opiate analgesic
CPT/HCPCS: 99211

== ENCOUNTER 2022-11-21 15:56 | Inpatient (IN) | payer OTHER ==
[2022-11-21 16:48] LABS: Basophils # (A) 0.1 k/uL (0-0.2); Basophils % (A) 1 %; Eosinophils # (A) 0.3 k/uL (0-0.7); Eosinophils % (A) 2 %; HCT 40.9 % (39.0-53.0); HGB 14.2 gm/dL (13.0-17.5); Lymphocytes # (A) 2.4 k/uL (1.0-4.8); Lymphocytes % (A) 19 %; MCH 30.8 pg (25.0-35.0); MCHC 34.6 g/dL (31.0-37.0); Mean Platelet Volume 7.7; Monocytes # (A) 0.6 k/uL (0-1.0); Monocytes % (A) 5 %; Neutrophils # (A) 9.3 k/uL (1.3-7.7); Neutrophils % (A) 73 %; Platelet Count 297 k/uL (150-450); RDW 11.7 % (11.5-15.5); WBC 12.8 k/uL (3.8-10.6)
[2022-11-21 16:57] LABS: ALT 12 U/L (4-49); AST 17 U/L (17-59); African American GFR (CKD) >90 (>60 ml/min/1.73 sqM); Albumin 4.1 g/dL (3.5-5.0); Alkaline Phosphatase 112 U/L (38-126); Anion Gap 6 mmol/L; Blood Urea Nitrogen 14 mg/dL (9-20); Calcium 10.5 mg/dL (8.4-10.2); Carbon Dioxide 26 mmol/L (22-30); Chloride 103 mmol/L (98-107); Glucose 100 mg/dL (74-99); Magnesium 2.4 mg/dL (1.6-2.3); Non-African American GFR(CKD) >90 (>60 ml/min/1.73 sqM); Potassium 4.1 mmol/L (3.5-5.1); Sodium 135 mmol/L (137-145); Total Bilirubin 0.7 mg/dL (0.2-1.3); Total Protein 7.6 g/dL (6.3-8.2)
--- NOTE | 2022-11-21 21:30 | ED ---
General Adult HPI - General Chief complaint: Psychiatric Symptoms Stated complaint: Mental Health Time Seen by Provider: 11/21/22 20:37 Source: patient, family, RN notes reviewed, old records reviewed Mode of arrival: ambulatory Limitations: no limitations - History of Present Illness Initial comments: Patient is a 62-year-old male with past medical history remarkable for alcoholism was brought in by family members over multiple peaks of symptoms. Sy mptoms have somewhat been going on for multiple months as well. His last a lot of weight over the last 2 months, is not eating. Is not taking care of himself. He has not showered. Appears somewhat confused. Patient's finally brought the patient improved evaluation. He does not go to doctors. Denies any issues. Denies any pain. Denies chest pain, shortness breath, abdominal pain. Is uncertain what year were orientation to time. Patient's states this has been progressively getting worse. He does not want to be here. Would like to go home. Presents for further evaluation at this time.He denies any suicidal, homicidal ideations, attempts, plans. Denies any visual or auditory hallucinations. Denies depression to me. Has been sober for 2 years. Prior alcohol abuser. - Related Data Home Medications Medication Instructions Recorded Confirmed No Known Home Medications 11/21/22 11/21/22 Allergies Allergy/AdvReac Type Severity Reaction Status Date / Time metoclopramide [From Reglan] AdvReac JERKING Verified 10/13/19 12:42 AND SHAKING Penicillins AdvReac Rash/Hives/ Verified 10/13/19 12:42 swelling ants Allergy Rash/Hives Uncoded 10/13/19 12:42 Review of Systems ROS Statement: Those systems with pertinent positive or pertinent negative responses have been documented in the HPI. Review of Systems: CONST: Denies fever EYES: Denies blurry vision ENT: Denies nasal congestion C/V: Denies Chest pain RESP: Denies shortness of breath GI: Denies abdominal pain : Denies dysuria SKIN: Denies rash. MSK: Denies joint pain. NEURO: Denies headache ROS Other: All systems not noted in ROS Statement are negative. Past Medical History Past Medical History: Hyperlipidemia, Hypertension, Skin Disorder Additional Past Medical History / Comment(s): migraines, CHRONIC BACK PAIN, rash of unknown cause, History of Any Multi-Drug Resistant Organisms: None Reported Past Surgical History: Orthopedic Surgery Additional Past Surgical History / Comment(s): arthroscopy rt knee, eulalio cataracts, carpal tunnel left hand and elbow, pain clinic procedures Past Anesthesia/Blood Transfusion Reactions: No Reported Reaction Past Psychological History: No Psychological Hx Reported Past Alcohol Use History: Occasional Past Drug Use History: None Reported - Past Family History Mother Family Medical History: Cancer General Exam - General Exam Comments Initial Comments: General: Appears in no acute distress. Patient is thin. HEAD: Normal with no signs of head trauma. EYES: PERRLA, EOMI, conjunctiva normal, no discharge. Pupils are 3 mm and equal bilaterally. ENT: Hearing grossly intact, normal oropharynx. Moist mucous membranes. RESPIRATORY: Clear breath sounds bilaterally. No wheezes, rales, or rhonchi. C/V: Regular rate and rhythm. S1 and S2 auscultated, no edema, peripheral pulses 2+ and intact throughout ABD: Abd is soft, nontender, nondistended EXT: Normal range of motion, no obvious deformity SKIN: No rashes or lesions observed on exposed skin. NEURO: Alert and oriented 2-3. Not oriented to time but does understand that he is here because he is not eating, oriented to self, oriented to place. Cranial nerves I through XII are intact. No focal sensory strength deficits. Able to ambulate without difficulty. GCS of 15. Baseline appears to be alert and oriented 2-3, with worsening baseline mental status over the last few months. Limitations: no limitations Course Vital Signs 11/21/22 16:22 Temperature 98.4 F Pulse Rate 93 Respiratory 16 Rate Blood Pressure 110/70 O2 Sat by Pulse 98 Oximetry Medical Decision Making - Medical Decision Making Was pt. sent in by a medical professional or institution? @ -No Did you speak to anyone other than the patient for history? @ -Patient, family. Did you review nursing and triage notes? @ -Yes. I agree. Were old charts reviewed? @ -None Differential Diagnosis? @ -Differential Altered Mental Status: Hypoglycemia, DKA, hypercapnia, ETOH, overdose, CO poisoning, trauma, myxedema coma, HTN encephalopathy, infection, encephalitis, psychosis, intercranial hemorrhage, hepatic encephalopathy, meningitis, CVA, this is not meant to be an all-inclusive list EKG interpreted by me (3pts min.)? @ -Yes. See note. X-rays interpreted by me (1pt min.)? @ -Yes. Chest x-ray shows no acute cardiopulmonary process. CT interpreted by me (1pt min.)? @ -Yes. CT brain shows no acute intracranial process, hemorrhage. U/S interpreted by me (1pt. min.)? @ -none What testing was considered but not performed? (CT, X-rays, U/S, labs)? Why? @None What meds were considered but not given? Why? @ -none Did you discuss the management of the patient with other professionals? @ -None Did you reconcile home meds? @ -none Was smoking cessation discussed for >3mins.? @ -none Was critical care preformed (if so, how long)? @ -none Were there social determinants of health that impacted care today? How? (Homelessness, low income, unemployed, alcoholism, drug addiction, transportation, low edu. Level, literacy, decrease access to med. care, shelter, rehab)? @ -Prior alcoholism, likely contributing to dementia. Was there de-escalation of care discussed even if they declined? (Discuss DNR or withdrawal of care, Hospice)? @ -No What co-morbidities impacted this encounter? (DM, HTN, Smoking, COPD, CAD, Cancer, CVA, Hep., AIDS, mental health diagnosis, sleep apnea, morbid obesity)? @ -Dementia Was patient admitted / discharged? @ -Based on the patient's presentation and physical exam, I'm concerned for his altered mental status at this time. Differential does include dehydration, dementia, possible psychiatric cause. Seems to be a progressive worsening of his mental status over time. No acutely worsen. Patient's family brought him in for possible psychiatric evaluation evaluation due to his behavior. He has been progressively worsening over the last few months. We will obtain altered mental status workup including urine studies. He was placed in green scrubs already. We will discuss possible petitioning with the patient's . Workup was started in triage and I did add on alcohol level, UDS, CT brain. Family was in agreement with this plan. Vital signs within acceptable limits. EKG shows no signs of acute ischemia. Laboratory studies revealed a slightly elevated calcium level X.5. Vital signs are negative. Urine studies are still pending. Is a mild leukocytosis of 12.8 which is likely reactive.Chest x-ray as interpreted by myself reveals no evidence of acute cardio pulmonary process. Brain CT is interpreted myself and reveals no acute intracranial process. Radiology does not nonspecific changes that are chronic. On reevaluation, discussed with the patient's family who petitioned the patient. I also discussed the patient. We will admit the patient for neurology and psychiatry evaluation. He was petitioned. Sitter was ordered. He'll be given a dose of Ativan for agitation. Family was in agreement this plan. Urine studies are still pending. I spoke with the admitting physician, Dr. broussard who is covering for Dr. Alex. Patient was admitted in stable condition. Neurology and psychiatry were both consulted to evaluate patient in the morning. Undiagnosed new problem with uncertain prognosis? @ -Altered mental status, poor self-care Drug Therapy requiring intensive monitoring for toxicity (Heparin, Nitro, Insulin, Cardizem)? @ -none Were any procedures done? @ -none Diagnosis/symptom? @ -Acute on chronic altered mental status, concern for worsening dementia Acute, or Chronic, or Acute on Chronic? @ -Acute, chronic. Uncomplicated (without systemic symptoms) or Complicated (systemic symptoms)? @ -Uncomplicated Side effects of treatment? @ -none Exacerbation, Progression, or Severe Exacerbation] @ -Concerned for progression of dementia. Poses a threat to life or bodily function? @ -no - Lab Data Result diagrams: 11/21/22 16:45 11/21/22 16:45 Lab Results 11/21/22 11/21/22 11/21/22 Range/Units 16:45 16:45 17:17 WBC 12.8 H (3.8-10.6) k/uL RBC 4.60 (4.30-5.90) m/uL Hgb 14.2 (13.0-17.5) gm/dL Hct 40.9 (39.0-53.0) % MCV 89.0 (80.0-100.0) fL MCH 30.8 (25.0-35.0) pg MCHC 34.6 (31.0-37.0) g/dL RDW 11.7 (11.5-15.5) % Plt Count 297 (150-450) k/uL MPV 7.7 Neutrophils % 73 % Lymphocytes % 19 % Monocytes % 5 % Eosinophils % 2 % Basophils % 1 % Neutrophils # 9.3 H (1.3-7.7) k/uL Lymphocytes # 2.4 (1.0-4.8) k/uL Monocytes # 0.6 (0-1.0) k/uL Eosinophils # 0.3 (0-0.7) k/uL Basophils # 0.1 (0-0.2) k/uL Sodium 135 L (137-145) mmol/L Potassium 4.1 (3.5-5.1) mmol/L Chloride 103 (98-107) mmol/L Carbon Dioxide 26 (22-30) mmol/L Anion Gap 6 mmol/L BUN 14 (9-20) mg/dL Creatinine 0.84 (0.66-1.25) mg/dL Est GFR (CKD-EPI)AfAm >90 (>60 ml/min/1.73 sqM) Est GFR (CKD-EPI)NonAf >90 (>60 ml/min/1.73 sqM) Glucose 100 H (74-99) mg/dL Calcium 10.5 H (8.4-10.2) mg/dL Magnesium 2.4 H (1.6-2.3) mg/dL Total Bilirubin 0.7 (0.2-1.3) mg/dL AST 17 (17-59) U/L ALT 12 (4-49) U/L Alkaline Phosphatase 112 (38-126) U/L Total Protein 7.6 (6.3-8.2) g/dL Albumin 4.1 (3.5-5.0) g/dL Serum Alcohol mg/dL Influenza Type A (PCR) Not Detected (Not Detectd) Influenza Type B (PCR) Not Detected (Not Detectd) RSV (PCR) Not Detected (Not Detectd) SARS-CoV-2 (PCR) Not Detected (Not Detectd) 11/21/22 Range/Units 21:39 WBC (3.8-10.6) k/uL RBC (4.30-5.90) m/uL Hgb (13.0-17.5) gm/dL Hct (39.0-53.0) % MCV (80.0-100.0) fL MCH (25.0-35.0) pg MCHC (31.0-37.0) g/dL RDW (11.5-15.5) % Plt Count (150-450) k/uL MPV Neutrophils % % Lymphocytes % % Monocytes % % Eosinophils % % Basophils % % Neutrophils # (1.3-7.7) k/uL Lymphocytes # (1.0-4.8) k/uL Monocytes # (0-1.0) k/uL Eosinophils # (0-0.7) k/uL Basophils # (0-0.2) k/uL Sodium (137-145) mmol/L Potassium (3.5-5.1) mmol/L Chloride (98-107) mmol/L Carbon Dioxide (22-30) mmol/L Anion Gap mmol/L BUN (9-20) mg/dL Creatinine (0.66-1.25) mg/dL Est GFR (CKD-EPI)AfAm (>60 ml/min/1.73 sqM) Est GFR (CKD-EPI)NonAf (>60 ml/min/1.73 sqM) Glucose (74-99) mg/dL Calcium (8.4-10.2) mg/dL Magnesium (1.6-2.3) mg/dL Total Bilirubin (0.2-1.3) mg/dL AST (17-59) U/L ALT (4-49) U/L Alkaline Phosphatase (38-126) U/L Total Protein (6.3-8.2) g/dL Albumin (3.5-5.0) g/dL Serum Alcohol <10 mg/dL Influenza Type A (PCR) (Not Detectd) Influenza Type B (PCR) (Not Detectd) RSV (PCR) (Not Detectd) SARS-CoV-2 (PCR) (Not Detectd) - EKG Data -: EKG Interpreted by Me EKG Comments: 12-lead Electrocardiogram Interpretation Note EKG was reviewed and interpreted by myself. 12-lead ECG performed at 1632 is interpreted by me as revealing normal sinus rhythm with incomplete right bundle- branch block at a rate of 88 beats per minute. Left axis deviation. GA interval is 154 ms, QRS duration is 104 ms, QTc is 447 ms.. There were no ST or T wave abnormalities to suggest myocardial ischemia or injury. R wave progression across the precordium was satisfactory. By my interpretation this EKG is non-diagnostic for acute ischemia.No prior EKGs for comparison. Disposition Clinical Impression: Encounter for psychiatric assessment, AMS (altered mental status), Dementia Disposition: ADMITTED IP TO THIS HOSP Condition: Stable Referrals: Easton Alex MD [Primary Care Provider] - 1-2 days Time of Disposition: 22:25
[2022-11-21] MEDS ORDERED: SODIUM CHLORIDE 0.9% 1,000 ML IV ONE (21:41)
--- NOTE | 2022-11-21 21:47 | CT ---
EXAMINATION TYPE: CT brain wo con CT DLP: 1139.4 mGycm, Automated exposure control for dose reduction was used. DATE OF EXAM: 11/21/2022 9:35 PM COMPARISON: 08/19/2018 brain MRI CLINICAL INDICATION:Male, 62 years old with history of ams, TECHNIQUE: Brain: Axial CT images of the brain were obtained with coronal and sagittal reformats created and rev iewed. Contrast used: None. Oral contrast used: None. FINDINGS: Brain: Extra-axial spaces: No abnormal extra-axial fluid collections. Ventricular system: Dilatation in proportion to cerebral atrophy. Cerebral parenchyma: Cerebral atrophy. No acute intraparenchymal hemorrhage or mass effect. The saldivar -white junction is well differentiated. Scattered hypoattenuating areas are seen within the white mat ter. Cerebellum: Unremarkable. Mass effect: No evidence of midline shift. Intracranial vasculature: Atherosclerotic calcifications of the intracranial vessels. Soft tissues: Normal. Calvarium/osseous structures: No depressed skull fracture. Paranasal sinuses and mastoid air cells: Mild scattered paranasal sinus disease. Visualized orbits: Bilateral aphakia IMPRESSION: 1. No acute intracranial process. 2. Nonspecific white matter changes, likely secondary to chronic small vessel ischemic disease.
--- NOTE | 2022-11-21 22:03 | XR ---
EXAMINATION TYPE: XR chest 1V portable DATE OF EXAM: 11/21/2022 9:55 PM COMPARISON: None TECHNIQUE: XR chest 1V portable Portable AP radiograph of the chest. CLINICAL INDICATION:Male, 62 years old with history of ams; FINDINGS: Lungs/Pleura: There is flattening of the diaphragm with increased lucency of the lungs. No evidence o f pneumothorax, pleural effusion or focal consolidation. Pulmonary vascularity: Unremarkable. Heart/mediastinum: Cardiomediastinal silhouette is unremarkable. Musculoskeletal: No acute osseous pathology. IMPRESSION: 1. No acute cardiopulmonary disease process. 2. COPD changes.
[2022-11-21] MEDS ORDERED: LORazepam 2 MG/ML INJ IV STA (22:35)
[2022-11-21] MEDS ORDERED: NALOXONE 0.4 MG/ML 1 ML VIAL IV PRN (22:35)
[2022-11-21] MEDS ORDERED: ACETAMINOPHEN TAB 325 MG TAB PO PRN (22:35)
[2022-11-22 06:14] LABS: Appearance,Urine Clear (Clear); Bilirubin,Urine Negative (Negative); Blood,Urine Negative (Negative); Color,Urine Yellow; Glucose,Urine (UA) Negative (Negative); Ketones,Urine 2+ (Negative); Leukocyte Esterase,Urine Negative (Negative); Nitrite,Urine Negative (Negative); PH, Urine 6.5 (5.0-8.0); Protein,Urine Trace (Negative); Specific Gravity,Urine 1.018 (1.001-1.035)
[2022-11-22 06:28] LABS: Basophils # (A) 0.1 k/uL (0-0.2); Basophils % (A) 1 %; Eosinophils # (A) 0.2 k/uL (0-0.7); Eosinophils % (A) 3 %; HGB 12.2 gm/dL (13.0-17.5); Lymphocytes # (A) 1.6 k/uL (1.0-4.8); Lymphocytes % (A) 16 %; MCH 30.5 pg (25.0-35.0); MCV 89.6 fL (80.0-100.0); Mean Platelet Volume 7.7; Monocytes # (A) 0.5 k/uL (0-1.0); Monocytes % (A) 5 %; Neutrophils # (A) 7.1 k/uL (1.3-7.7); Neutrophils % (A) 74 %; Platelet Count 236 k/uL (150-450); RBC 4.01 m/uL (4.30-5.90); RDW 11.7 % (11.5-15.5); WBC 9.6 k/uL (3.8-10.6)
[2022-11-22 06:39] LABS: African American GFR (CKD) >90 (>60 ml/min/1.73 sqM); Anion Gap 4 mmol/L; Blood Urea Nitrogen 14 mg/dL (9-20); Calcium 9.8 mg/dL (8.4-10.2); Carbon Dioxide 24 mmol/L (22-30); Chloride 108 mmol/L (98-107); Glucose 73 mg/dL (74-99); Non-African American GFR(CKD) >90 (>60 ml/min/1.73 sqM); Potassium 3.7 mmol/L (3.5-5.1); Sodium 136 mmol/L (137-145)
[2022-11-22 06:42] LABS: Cocaine Screen,Urine Not Detected (NotDetected); Phencyclidine Screen,Urine Not Detected (NotDetected); Urn Cannabinoid Scrn Not Detected (NotDetected)
[2022-11-22 06:43] LABS: Amphetamine Screen,Urine Not Detected (NotDetected); Barbiturate Screen,Urine Not Detected (NotDetected); Benzodiazepines Screen,Urine Detected (NotDetected); Methadone Screen, Urine Not Detected (NotDetected); Opiate Screen,Urine Not Detected (NotDetected); Oxycodone Screen, Urine Not Detected (NotDetected); Tricyclic Antidepressant,Urine Not Detected (NotDetected)
[2022-11-22] MEDS: HEPARIN SODIUM,PORCINE/PF 5,000 UNIT/0.5 ML SYRINGE SQ SCH ×2 (08:30→20:07)
[2022-11-22 13:08] VITALS: BMI 16.8
--- NOTE | 2022-11-22 15:07 | P.HPIM ---
History of Present Illness H&P Date: 11/22/22 This is a 62-year-old male who presented to the emergency department by family and reported that he lives with sister with a significant past medical history of alcoholism and was brought here as patient has been losing weight and not eating over the last 2 months and does not follow with although it is documented that Dr. lAex is his primary care provider. Patient is not taking care of himself continues to be confused and was brought here for further evaluation. Family petition the patient and psychiatry was consulted. On exam today patient denies any thoughts of suicide or wanting to harm himself or others denies any hallucinations and denies taking any medications. Patient was a former alcohol user and has been sober for 2 years. Patient was admitted for altered mental status with psychiatry evaluation. EKG showed a normal sinus rhythm, CT of the brain showed no acute intracranial process, and chest x-ray shows no acute cardiopulmonary disease and COPD changes. Patient does admit to continuing ongoing nicotine abuse and denies any other illicit drug use or alcohol use. Serology testing including influenza RSV and Covid are negative and UDS was done showing positive for benzos urinalysis was negative. Patient's WBC is normal at 9.6 with a hemoglobin of 12.2, platelets are 236, sodium is 136 with a potassium of 3.7 and current creatinine is 0.71. Patient again denies suicidal ideation or thoughts of wanting to harm himself or others. Suicide sitter was placed by ER and will discontinue. Awaiting psychiatry evaluation as patient was petitioned. Review Of Systems: Constitutional: No fever, no chills, no night sweats. No weight change. No weakness, fatigue or lethargy. No daytime sleepiness. EENT: No headache. No blurred vision or double vision, no loss of vision. No loss of Hearing, no ringing in the ears, no dizziness. No nasal drainage or congestion. No epistaxis. No sore throat. Lungs: No shortness of breath, cough, no sputum production. No wheezing. Cardiovascular: No chest pain, no lower extremity edema. No palpitations. No paroxysmal nocturnal dyspnea. No orthopnea. No lightheadedness or dizziness. No syncopal episodes. Abdominal: No abdominal pain. No nausea, vomiting. No diarrhea. No constipation. No bloody or tarry stools.. No loss of appetite. Genitourinary: No dysuria, increased frequency, urgency. No urinary retention. Musculoskeletal: No myalgias. No muscle weakness, no gait dysfunction, no frequent falls. No back pain. No neck pain. Integumentary: No wounds, no lesions. No rash or pruritus. No unusual bruising. No change in hair or nails. Neurologic: No aphasia. No facial droop. No change in mentation. No head injury. No headache. No paralysis. No paresthesia. Psychiatric: No depression. No anxiety. No mood swings. Endocrine: No abnormal blood sugars. No weight change. No excessive sweating or thirst. No cold intolerance. PHYSICAL EXAMINATION: GENERAL: The patient is alert and oriented x2, thin built, elderly appearing male in no acute distress Well developed, well nourished. HEENT: Pupils are round and equally reacting to light. EOMI. no scleral icterus. No conjunctival pallor. Normocephalic, atraumatic. No pharyngeal erythema. No thyromegaly. CARDIOVASCULAR: S1 and S2 muffled PULMONARY: diminished breath sounds bilaterally with no wheezing or rhonchi noted. ABDOMEN: soft. Nontender on exam. non-distended, normoactive bowel sounds. No palpable organomegaly. MUSCULOSKELETAL: No joint swelling or deformity. EXTREMITIES: No cyanosis, clubbing, or pedal edema. NEUROLOGICAL: Gross neurological examination did not reveal any focal deficits. Muscle wasting noted. SKIN: No rashes. Assessment: Altered mental status, most likely worsening dementia History of hyperlipidemia History of hypertension Continued ongoing nicotine abuse next line former alcohol abuse quit 2 years ago Muscle wasting noted GI prophylaxis DVT prophylaxis Full code Plan: Recommend to continue with current medications and management and currently awaiting psychiatric evaluation as patient was petitioned by family Initially neurology was consulted with concerns for dementia and will discontinue, CT brain was negative and will start Seroquel and monitor the patient overnight while awaiting psychiatry evaluation. Nursing staff notified psychiatry of the consultation which is pending Recommend discontinuing suicide sitter as patient is not suicidal and denies any suicide or homicidal ideation Recommend using bed alarm for safety. Encouraged oral intake Will add Seroquel at night Currently awaiting psychiatric evaluation Possible discharge in 24-48 hours The impression and plan of care has been dictated by Madelyn Myers, nurse practitioner as directed. Dr. Deneen MD I have performed a history and examination and MDM of this patient, discussed the same with the dictator, and agree with the dictator's assessment and plan as written ,documented as a scribe. Based on total visit time, I have performed more than 50% of the visit. Any additional findings or plans will be noted. Past Medical History Past Medical History: Hyperlipidemia, Hypertension, Skin Disorder Additional Past Medical History / Comment(s): migraines, CHRONIC BACK PAIN History of Any Multi-Drug Resistant Organisms: None Reported Past Surgical History: Orthopedic Surgery Additional Past Surgical History / Comment(s): arthroscopy rt knee, eulalio cataracts, carpal tunnel left hand and elbow, pain clinic procedures Past Anesthesia/Blood Transfusion Reactions: No Reported Reaction Past Psychological History: No Psychological Hx Reported Smoking Status: Current every day smoker Past Alcohol Use History: Heavy Additional Past Alcohol Use History / Comment(s): smokes 3/4 PPD since age 13, past ETOH Past Drug Use History: None Reported - Past Family History Mother Family Medical History: Cancer Medications and Allergies Home Medications Medication Instructions Recorded Confirmed Type No Known Home Medications 11/21/22 11/21/22 History Allergies Allergy/AdvReac Type Severity Reaction Status Date / Time metoclopramide [From Reglan] AdvReac JERKING Verified 10/13/19 12:42 AND SHAKING Penicillins AdvReac Rash/Hives/ Verified 10/13/19 12:42 swelling ants Allergy Rash/Hives Uncoded 10/13/19 12:42 Physical Exam Vitals: Vital Signs Temp Pulse Pulse Resp BP BP Pulse Ox 11/22/22 08:00 72 16 11/22/22 07:04 98.7 F 72 16 90/51 98 11/22/22 04:06 97.3 F L 75 16 107/66 98 11/21/22 22:48 71 18 125/79 98 11/21/22 16:22 98.4 F 93 16 110/70 98 Intake and Output 11/21/22 11/22/22 11/22/22 22:59 06:59 14:59 Other: # Voids 1 Weight 44.452 kg 44.452 kg Results CBC & Chem 7: 11/22/22 06:10 11/22/22 06:10 Labs: Abnormal Lab Results - Last 24 Hours (Table) 12/11/21/22 11/22/22 Range/Units 16:45 16:45 05:51 WBC 12.8 H (3.8-10.6) k/uL RBC (4.30-5.90) m/uL Hgb (13.0-17.5) gm/dL Hct (39.0-53.0) % Neutrophils # 9.3 H (1.3-7.7) k/uL Sodium 135 L (137-145) mmol/L Chloride (98-107) mmol/L Glucose 100 H (74-99) mg/dL Calcium 10.5 H (8.4-10.2) mg/dL Magnesium 2.4 H (1.6-2.3) mg/dL Urine Protein Trace H (Negative) Urine Ketones 2+ H (Negative) U Benzodiazepines Scrn (NotDetected) 11/22/22 11/22/22 11/22/22 Range/Units 05:51 06:10 06:10 WBC (3.8-10.6) k/uL RBC 4.01 L (4.30-5.90) m/uL Hgb 12.2 L (13.0-17.5) gm/dL Hct 36.0 L (39.0-53.0) % Neutrophils # (1.3-7.7) k/uL Sodium 136 L (137-145) mmol/L Chloride 108 H (98-107) mmol/L Glucose 73 L (74-99) mg/dL Calcium (8.4-10.2) mg/dL Magnesium (1.6-2.3) mg/dL Urine Protein (Negative) Urine Ketones (Negative) U Benzodiazepines Scrn Detected H (NotDetected) Thrombosis Risk Factor Assmnt - DVT/VTE Prophylaxis DVT/VTE Prophylaxis: Pharmacologic Prophylaxis ordered - Choose All That Apply Any of the Below Risk Factors Present?: No Other Risk Factors: Yes Each Risk Factor Represents 2 Points: Age 61-74 years Other congenital or acquired thrombophilia - If yes, enter type in comment: No Thrombosis Risk Factor Assessment Total Risk Factor Score: 2 Thrombosis Risk Factor Assessment Level: Low Risk Assessment and Plan Time with Patient: Greater than 30
[2022-11-22] MEDS ORDERED: QUEtiapine 25 MG TAB PO SCH (21:00)
[2022-11-23 08:18] VITALS: RESP 16
[2022-11-23] MEDS ORDERED: MEGESTROL 40 MG TAB PO SCH (09:45)
[2022-11-23] MEDS: HEPARIN SODIUM,PORCINE/PF 5,000 UNIT/0.5 ML SYRINGE SQ SCH (10:19)
[2022-11-23 13:50] VITALS: BP 102/67; PULSE 75; TEMP 97.7
--- NOTE | 2022-11-23 16:10 | P.CN ---
Psychiatric Consult - . Consult date: 11/23/22 Consult:: 11/23/22 16:04 The patient is a petition in which his significant other says that he has not been eating and that his intention is to passively from that. Subjective the patient says that he well, I get lots of exercise like to ride my bicycle in the summer and [facility], I get plenty of sleep. He denies any depression or any suicidality he denies anxiety or anger at other people. He does not want to see a psychiatrist he does not want to take medication he says he is. He denies having had treatment for depression in the past. Objective: The patient is alert and reasonably well oriented. He said his girlfriend was coming to take him home which may not be entirely accurate. He knew this was 11/23/2022 he could subtract 7 from 93 and get 86 and he didn't rapidly he could spell world backward. 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 His affect is full range and pleasant response times her quick physical energy seems to be good good eye contact he was cooperative. He denies now or in the past any psychotic symptoms or any paranoid ideas and did not evidence any denies any manic symptoms in the past. When asked how cats and snakes are like he said that they are fast when asked to abstract the proverb the grass looks greener on the side defense he said "take the risk" Assessment patient does not want help he is deathly not doing poorly enough to have to get less help there is nothing that would back up a certification of commitment. He might have a little bit of memory issues perhaps slightly advanced even for his age. I do not see a need for commitment or 4 medications at this point. If he was having trouble with depression or appetite then Remeron would be a good choice but he says he sleeping well doesn't feel depressed and appetite is fine. Diagnosis: No psychiatric diagnosis at this time.
--- NOTE | 2022-11-24 19:03 | P.DS ---
Providers Date of admission: 11/21/22 22:37 Expected date of discharge: 11/23/22 Attending physician: Milan Carrasco MD Consults: 11/21/22 22:35 Consult Physician Routine Consulting Provider: Candelario Palacio Consult Reason/Comments: petitioned, lack of self care Do you want consulting provider notified?: Yes, Notify in am Primary care physician: Easton Alex Hospital Course: Final diagnosis Altered mental status, most likely worsening dementia History of hyperlipidemia History of hypertension Continued ongoing nicotine abuse Former alcohol abuse quit 2 years ago Muscle wasting noted GI prophylaxis DVT prophylaxis Full code Discharge disposition Patient is being discharged in a stable condition with guarded prognosis to home . Patient will follow-up with Dr. Alex in the outpatient setting upon discharge. Patient is to continue on Seroquel at night. Total time taken is greater than 35 minutes. Hospital course This is a 62-year-old male who was recently admitted and petitioned by family for concerns of suicidal ideations in an attempt to starve himself to . Psychiatry evaluated the patient and cleared the patient for discharge. Patient most likely with some form of dementia and will need outpatient follow-up with primary care provider. Patient has a history of noncompliance and does not take medications or follow-up with his doctor. Patient is medically clear and stable for discharge today. Currently no reports of chest pain, shortness of breath, or palpitations. Patient is afebrile. No reports of nausea or vomiting and p atient is tolerating diet. Patient will be discharged home today. Physical exam: Gen: This is a 62 male who is awake, alert and oriented 2-3, thin built, cachectic, muscle wasting noted HEENT: Head is atraumatic, normocephalic. Pupils equal, round. Sclerae is anicteric. NECK: Supple. No JVD. No lymphadenopathy. No thyromegaly. LUNGS: Clear to auscultation. No wheezes or rhonchi. No intercostal retractions. HEART: Regular rate and rhythm. No murmur. ABDOMEN: Soft. Bowel sounds are present. No masses. No tenderness. EXTREMITIES: No pedal edema. No calf tenderness. NEUROLOGICAL: Patient is awake, alert and oriented x3. Cranial nerves 2 through 12 are grossly intact. Please refer to medication reconciliation sheet for a list of medications. The impression and plan of care has been dictated by Madelyn Myers, Nurse Practitioner as directed. Dr. Deneen MD I have performed a history and examination and MDM of this patient, discussed the same with the dictator, and agree with the dictator's assessment and plan as written ,documented as a scribe. Based on total visit time, I have performed more than 50% of the visit. Patient Condition at Discharge: Stable Plan - Discharge Summary New Discharge Prescriptions: New QUEtiapine [SEROquel] 12.5 mg PO HS 30 Days #15 tab Discharge Medication List QUEtiapine [SEROquel] 12.5 mg PO HS 30 Days #15 tab 11/23/22 [Rx] Follow up Appointment(s)/Referral(s): Easton Alex MD [Primary Care Provider] - 1-2 days (Office closed at time of discharge. Patient to make own follow-up appt. ) Patient Instructions/Handouts: Quetiapine (By mouth) Activity/Diet/Wound Care/Special Instructions: Activity is limited until follow-up Follow-up with primary care provider on discharge Follow-up with [facility] in the outpatient setting Discharge Disposition: HOME SELF-CARE
--- NOTE | 2022-11-27 06:10 | CDI ---
Documentation Clarification Form Date: 11/27/22 From: Lisa Rice Admit Date: 11/21/2022 10:37:00 PM Patient Name: Cisco Gutierrez Visit Number: [id number] Discharge Date: 11/23/2022 6:27:00 PM ATTENTION: The Clinical Documentation Specialists (CDI) and [facility] Coding Staff appreciate your assistance in clarifying documentation. Please respond to the clarification below the line at the bottom and electronically sign. The CDI & [facility] Coding staff will review the response and follow-up if needed. Please note: Queries are made part of the Legal Health Record. If you have any questions, please contact the author of this message via ITS. Dr. Lloyd Brothers, The Registered Dietitian assessment on 11/22 indicates this patient meets criteria for malnutrition dx & severe, chronic. Based on this information and the findings below, is there an additional diagnosis that is clinically appropriate for this patient? History/Risk Factors: Hx of alcoholism, dementia, HLD, muscle wasting, HTN, cigarette smoker Clinical Indicators: Per DS, 62 male who is awake, alert and oriented 2-3, thin built, cachectic, muscle wasting noted. RD Consult Assessment: Malnutrition severe, chronic. Current BMI: 16.8 Insufficient energy intake: Involuntary weight loss of 45% of UBW in < 1 year, severe fat, muscle loss Weight Loss: underweight Severe loss of buccal fat pads and temporalis muscle Treatment: Increase PO intake from 50%-75%, Enlive TID, regular diet, supplements daily Is there an additional diagnosis that is clinically appropriate for this patient? [ ] Severe Protein-Calorie Malnutrition [ x] Other condition, please specify ___moderate malnutrition [ ] Unable to Determine MTDD
--- NOTE | 2022-11-27 06:35 | CDI ---
Documentation Clarification Form Date: 11/27/22 From: Lisa Rice Admit Date: 11/21/2022 10:37:00 PM Patient Name: Cisco Gutierrez Visit Number: [id number] Discharge Date: 11/23/2022 6:27:00 PM ATTENTION: The Clinical Documentation Specialists (CDI) and [facility] Coding Staff appreciate your assistance in clarifying documentation. Please respond to the clarification below the line at the bottom and electronically sign. The CDI & [facility] Coding staff will review the response and follow-up if needed. Please note: Queries are made part of the Legal Health Record. If you have any questions, please contact the author of this message via ITS. Dr. Lloyd Brothers, Dementia is documented in the ED Note, H&P and DS. Additional clarification regarding the type of dementia is requested. Patient history/risk factors: Hx of alcoholism, dementia, HLD, muscle wasting, HTN, cigarette smoker Clinical indicators: Altered mental status, most likely worsening dementia Labs: Serum Alcohol <10, Sodium 135, Calcium 10.5, Magnesium 2.4 CT: No acute intracranial process. Nonspecific white matter changes, likely secondary to chronic small vessel ischemic disease. Treatment: Quetiapine 12.5 mg PO HS Psych Consults: No psychiatric diagnosis at this time. Please clarify the type dementia, if known: [ ] Alcohol [ ] Other condition or cause of dementia, please specify [ x ] Unable to determine Please indicate any behavioral disturbances associated with the condition (such as aggression, combative or wandering) MTDD
== END 2022-11-23 18:27 | disposition home or self-care (01) | DRG 884 ==
LOC: EC 15:56 → 5NMEDONC 22:37
PROVIDERS: ADMIT Internal Medicine; ATTEND Internal Medicine
DX: F03.90 Unspecified dementia, unspecified severity, without behavioral disturbance, psychotic disturbance, mood disturbance, and anxiety (principal); R64 Cachexia; E44.0 Moderate protein-calorie malnutrition; Z68.1 Body mass index [BMI] 19.9 or less, adult; E78.5 Hyperlipidemia, unspecified; F10.21 Alcohol dependence, in remission; Z20.822 Contact with and (suspected) exposure to COVID-19; M62.50 Muscle wasting and atrophy, not elsewhere classified, unspecified site; I10 Essential (primary) hypertension; G89.29 Other chronic pain; M54.9 Dorsalgia, unspecified; F17.210 Nicotine dependence, cigarettes, uncomplicated; T50.906A Underdosing of unspecified drugs, medicaments and biological substances, initial encounter; Z91.128 Patient's intentional underdosing of medication regimen for other reason; L98.9 Disorder of the skin and subcutaneous tissue, unspecified; Z88.0 Allergy status to penicillin; Z88.8 Allergy status to other drugs, medicaments and biological substances
CPT/HCPCS: 36415; 70450; 71045; 80048; 80053; 80306; 80320; 81003; 82075; 83735; 85025; 87636; 93005; 96361; 96374; 99285

== ENCOUNTER 2022-12-16 18:39 | Inpatient (IN) | payer OTHER ==
--- NOTE | 2022-12-16 19:21 | ED ---
General Adult HPI - General Chief complaint: Recheck/Abnormal Lab/Rx Stated complaint: mass on neck Time Seen by Provider: 12/16/22 18:41 Source: patient, family (Sister), RN/MD (Dr. Carmona), EMS, RN notes reviewed Mode of arrival: EMS Limitations: no limitations, altered mental status (Patient has dementia) - History of Present Illness Initial comments: Patient is a pleasant 4 he 2-year-old male presenting to the emergency department with concern for neck mass. Patient supposedly was admitted a couple months ago for this. Patient is brought in by sister. Sister does not have regular contact with him and noticed him with muffled voice and not eating well. Patient states he feels fine and does not have complaints. Patient does have history of dementia. - Related Data Previous Rx's Medication Instructions Recorded QUEtiapine [SEROquel] 12.5 mg PO HS 30 Days #15 tab 11/23/22 Allergies Allergy/AdvReac Type Severity Reaction Status Date / Time metoclopramide [From Reglan] AdvReac JERKING Verified 10/13/19 12:42 AND SHAKING Penicillins AdvReac Rash/Hives/ Verified 10/13/19 12:42 swelling ants Allergy Rash/Hives Uncoded 10/13/19 12:42 Review of Systems ROS Statement: Those systems with pertinent positive or pertinent negative responses have been documented in the HPI. ROS Other: All systems not noted in ROS Statement are negative. Constitutional: Denies: fever Eyes: Denies: eye pain ENT: Reports: as per HPI Respiratory: Denies: cough, dyspnea Cardiovascular: Denies: chest pain Endocrine: Denies: fatigue Gastrointestinal: Denies: abdominal pain Genitourinary: Denies: dysuria Past Medical History Past Medical History: Hyperlipidemia, Hypertension, Skin Disorder Additional Past Medical History / Comment(s): migraines, CHRONIC BACK PAIN History of Any Multi-Drug Resistant Organisms: None Reported Past Surgical History: Orthopedic Surgery Additional Past Surgical History / Comment(s): arthroscopy rt knee, eulalio cataracts, carpal tunnel left hand and elbow, pain clinic procedures Past Anesthesia/Blood Transfusion Reactions: No Reported Reaction Past Psychological History: No Psychological Hx Reported Smoking Status: Current every day smoker Past Alcohol Use History: Heavy Past Drug Use History: None Reported - Past Family History Mother Family Medical History: Cancer General Exam Limitations: no limitations General appearance: alert, in no apparent distress Head exam: Present: atraumatic Eye exam: Present: normal appearance ENT exam: Present: other (Patient does have some trismus and difficulty opening the mouth. Tongue is raised. There appears to be destructive lesion underneath the right side of the tongue. No immediate airway compromise) Neck exam: Present: other (Large right-sided neck mass firm and nontender, proximally 6 cm submandibular. Left-sided submandibular neck mass approximately 2 cm.) Respiratory exam: Present: normal lung sounds bilaterally Cardiovascular Exam: Present: regular rate, normal rhythm GI/Abdominal exam: Present: soft. Absent: tenderness Back exam: Present: normal inspection Neurological exam: Present: alert Psychiatric exam: Present: normal affect, normal mood Skin exam: Present: normal color Course Vital Signs 12/16/22 18:59 Temperature 97.5 F L Pulse Rate 66 Respiratory 18 Rate Blood Pressure 111/71 O2 Sat by Pulse 100 Oximetry Medical Decision Making - Medical Decision Making Was pt. sent in by a medical professional or institution (, PA, CASINO FLOOR PERSON, urgent care, hospital, or correction...) When possible be specific @ -Patient was sent from [facility]. Did you speak to anyone other than the patient for history (EMS, parent, family, police, friend...)? What history was obtained from this source @ -I spoke with patient's sister who provided to her history is patient is a poor historian. Also spoke with Dr. Carmona from transferring physician Did you review nursing and triage notes (agree or disagree)? Why? @ -I reviewed and agree with nursing and triage notes Were old charts reviewed (outside hosp., previous admission, EMS record, old EKG, old radiological studies, urgent care reports/EKG's, correction records)? Report findings @ -Review the reports from [facility] including chart and CT results and lab work Differential Diagnosis (chest pain, altered mental status, abdominal pain women, abdominal pain men, vaginal bleeding, weakness, fever, dyspnea, syncope, headache, dizziness, GI bleed, back pain, seizure, CVA, palpatations, mental health)? @ -Differential Weakness: Hypoglycemia, shock, sepsis, hyponatremia, anemia, infection, ID, ETOH, adverse medicine reaction, overdose, stroke, this is not meant to be an all-inclusive list. EKG interpreted by me (3pts min.). @ -Not done X-rays interpreted by me (1pt min.). @ -None done CT interpreted by me (1pt min.). @ -None done U/S interpreted by me (1pt. min.). @ -None done What testing was considered but not performed or refused? (CT, X-rays, U/S, labs)? Why? @ -None What meds were considered but not given or refused? Why? @ -None Did you discuss the management of the patient with other professionals (professionals i.e. DrNenita, PA, CASINO FLOOR PERSON, lab, RT, psych nurse, social insurance adviser, forensic artist, teacher, public affairs officer, employment case manager)? Give summary @ -Case was discussed with Dr. swift who will admit covering for Dr. Alex. Was smoking cessation discussed for >3mins.? @ -No Was critical care preformed (if so, how long)? @ -No Were there social determinants of health that impacted care today? How? (Homelessness, low income, unemployed, alcoholism, drug addiction, transportation, low edu. Level, literacy, decrease access to med. care, [facility], rehab)? @ -No Was there de-escalation of care discussed even if they declined (Discuss DNR or withdrawal of care, Hospice)? DNR status @ -No What co-morbidities impacted this encounter? (DM, HTN, Smoking, COPD, CAD, Cancer, CVA, ARF, Chemo, Hep., AIDS, mental health diagnosis, sleep apnea, morbid obesity)? @ -None Was patient admitted / discharged? Hospital course, mention meds given and route, prescriptions, significant lab abnormalities, going to OR and other pertinent info. @ -Patient and family updated on results and plan. Patient will be admitted for oncology and ENT evaluation Undiagnosed new problem with uncertain prognosis? @ -No Drug Therapy requiring intensive monitoring for toxicity (Heparin, Nitro, Insulin, Cardizem)? @ -No Were any procedures done? @ -No Diagnosis/symptom? @ -Neck mass Acute, or Chronic, or Acute on Chronic? @ -Acute Uncomplicated (without systemic symptoms) or Complicated (systemic symptoms)? @ -Complicated with potential metastasis Side effects of treatment? @ -No Exacerbation, Progression, or Severe Exacerbation? @ -No Poses a threat to life or bodily function? How? (Chest pain, USA, ID, pneumonia, PE, COPD, DKA, ARF, appy, cholecystitis, CVA, Diverticulitis, Homicidal, Suicidal, threat to staff... and all critical care pts) @ -Large threat to life and upper airway Disposition Clinical Impression: Neck mass Disposition: ADMITTED IP TO THIS HOSP Condition: Serious Is patient prescribed a controlled substance at d/c from ED?: No Referrals: Easton Alex MD [Primary Care Provider] - 1-2 days Time of Disposition: 19:30
[2022-12-16] MEDS ORDERED: ACETAMINOPHEN TAB 325 MG TAB PO PRN (19:30)
[2022-12-16] MEDS ORDERED: NALOXONE 0.4 MG/ML 1 ML VIAL IV PRN (19:30)
[2022-12-16] MEDS ORDERED: HYDROmorphone 0.5 MG/0.5 ML SYRINGE IVP PRN (19:30)
[2022-12-16] MEDS: LORazepam 0.5 MG TAB PO PRN (20:31)
[2022-12-16] MEDS: SODIUM CHLORIDE 0.9% 1,000 ML IV SCH (20:33)
--- NOTE | 2022-12-17 09:11 | P.HPIM ---
History of Present Illness This is a pleasant 62 years old male with past medical history of Hyperlipidemia, Hypertension, Skin Disorder, migraines, CHRONIC BACK PAIN. He is a patient of Dr. Mcbride Patient initially presents to [facility] with worsening neck mass over the last 2 weeks. Associated with poor oral intake and speaking difficulty. Patient also was known for history of noncompliance and not following up with his appointments He was recently admitted to [facility] less than one month ago for altered mental status, suicidal ideation and he was cleared by psychiatrist and cleared for discharge He presents because of worsening large mass, patient states to get worse over the last 1-2 days, this morning he was looking comfortable lying down in bed, he was talking easily, he was able to eat soft diet in front of me with no difficulty. He has large mass around right jaw angle about 3-4 inches in diameter which looks warm but no redness, mild tenderness. He cannot open his mouth all the way PATIENT does not seem to be in respiratory distress with no breathing difficulty when I saw him. Patient denies other complaints, no chest pain or dizziness or weakness or numbness. No chest pain or dyspnea. No vomiting diarrhea, no abdominal pain or dysuria or urgency. Patient is a smoker about 1 pack per day and he was counseled to quit and he agrees to the nicotine patch. He denies alcohol or illicit drugs Labs reviewed at [facility] showing unremarkable BMP with sodium 138, potassium 4.1, creatinine 0.8. Liver enzymes elevated with AST 12 at ALT 14, bilirubin normal 0.8. Calcium was elevated 12.6 Also he has leukocytosis with 22.2, hemoglobin 12.8. Platelet count is normal 323. INR 1.1. He had CT soft tissue of neck with and without contrast, 1. large heterogeneous enhancing mass involving at least two thirds of the tongue with extension into the right submandibular mass at the parapharyngeal, rotated sublingual and masseteric spaces measuring up to 12.2 by 8.6 x 5.8 cm. There is partial effacement of the right oropharynx. Findings suggestive of squamous cell carcinoma versus lymphoma. ENT consult is recommended. 2 enlarged right submandibular and right supraclavicular lymph node likely representing metastasis. 3 there is occlusion of severe narrowing of the right internal jugular vein due to mass effect or inversion from #1 EKG showing normal sinus rhythm at 64, QTC 422, no significant ST-T changes Vitas looks stable and patient is afebrile no labs or imaging done in this facility emergency room Review of Systems Review of systems CONSTITUTIONAL: No fever, no malaise, no fatigue. HEENT: No recent visual problems or hearing problems. Denied any sore throat. CARDIOVASCULAR: No orthopnea, PND, no palpitations, no syncope. PULMONARY: No shortness of breath, no cough, no hemoptysis. GASTROINTESTINAL: No diarrhea, no nausea, no vomiting, no abdominal pain. Normoactive bowel sounds. NEUROLOGICAL: No headaches, no weakness, no numbness. HEMATOLOGICAL: Denies any bleeding or petechiae. GENITOURINARY: Denies any burning micturition, frequency, or urgency. MUSCULOSKELETAL/RHEUMATOLOGICAL: Denies any joint pain, swelling, or any muscle pain. ENDOCRINE: Denies any polyuria or polydipsia. Past Medical History Past Medical History: Hyperlipidemia, Hypertension, Skin Disorder Additional Past Medical History / Comment(s): migraines, CHRONIC BACK PAIN History of Any Multi-Drug Resistant Organisms: None Reported Past Surgical History: Orthopedic Surgery Additional Past Surgical History / Comment(s): arthroscopy rt knee, eulalio cataracts, carpal tunnel left hand and elbow, pain clinic procedures Past Anesthesia/Blood Transfusion Reactions: No Reported Reaction Past Psychological History: No Psychological Hx Reported Smoking Status: Current every day smoker Past Alcohol Use History: Heavy Past Drug Use History: None Reported - Past Family History Mother Family Medical History: Cancer Medications and Allergies Home Medications Medication Instructions Recorded Confirmed Type Ibuprofen [Motrin Ib] 400 mg PO Q8H PRN 12/16/22 12/16/22 History Thiamine [Vitamin B-1] 100 mg PO DAILY 12/16/22 12/16/22 History Allergies Allergy/AdvReac Type Severity Reaction Status Date / Time metoclopramide [From Reglan] AdvReac JERKING Verified 12/16/22 19:47 AND SHAKING Penicillins AdvReac Rash/Hives/ Verified 12/16/22 19:47 swelling ants Allergy Rash/Hives Uncoded 10/13/19 12:42 Physical Exam Vitals: Vital Signs Temp Pulse Resp BP Pulse Ox 12/17/22 07:38 98.0 F 81 18 95/66 96 12/17/22 04:56 76 18 101/76 97 12/17/22 01:27 68 18 106/71 98 12/16/22 21:03 67 18 102/62 97 12/16/22 18:59 97.5 F L 66 18 111/71 100 Intake and Output 12/16/22 12/17/22 12/17/22 22:59 06:59 14:59 Other: Weight 72.575 kg GENERAL: The patient is alert and oriented x3, not in any acute distress. Well developed, well nourished. -HEENT: Pupils are round and equally reacting to light. EOMI. No scleral icterus. No conjunctival pallor. Normocephalic, atraumatic. No pharyngeal erythema. No thyromegaly. Right sided neck mass around the right ankle about 3- 4 inches in diameter, look swollen tender but no erythema CARDIOVASCULAR: S1 and S2 present. No murmurs, rubs, or gallops. PULMONARY: Chest is clear to auscultation, no wheezing or crackles. ABDOMEN: Soft, nontender, nondistended, normoactive bowel sounds. No palpable organomegaly. MUSCULOSKELETAL: No joint swelling or deformity. EXTREMITIES: No cyanosis, clubbing, or pedal edema. NEUROLOGICAL: Gross neurological examination did not reveal any focal deficits. SKIN: No rashes. no petechiae. Assessment and Plan Assessment: -worsening right side Neck/oral cavity mass concerning for lymphoma versus carcinoma, associated with right submandibular and right supraclavicular lymphadenopathy, With possible soft tissue infection with leukocytosis -hypercalcemia -Dehydration -Nicotine dependence -known history of noncompliance -Hypertension -Hyperlipidemia -Chronic back pain -History of migraine Plan: Continue with IV hydration Start antibiotic clindamycin empirically and check for procalcitonin. Hematology/oncology consult ENT consult Labs and medication were reviewed.. Continue same treatment. Continue with symptomatic treatment. Resume home medication. Monitor lytes and vitals. DVT and GI prophylaxis. Further recommendations as per clinical course of the patient DVT prophylaxis: Subcutaneous heparin GI Prophylaxis: Pepcid PT/OT: Pending Prognosis is guarded
[2022-12-17] MEDS ORDERED: LEVOFLOXACIN 500MG-D5W PMX 500 MG in DEXTROSE/WATER 1 100ML.BAG IVPB SCH (10:00)
[2022-12-17] MEDS: CLINDAMYCIN 150 MG CAP PO SCH ×3 (10:26→20:33)
[2022-12-17] MEDS: NICOTINE 21MG/24HR PATCH TRANSDERM SCH (10:27)
[2022-12-17] MEDS: SODIUM CHLORIDE 0.9% 1,000 ML IV SCH (10:27)
[2022-12-17] MEDS: PANTOPRAZOLE 40 MG/10 ML VIAL IV SCH (10:28)
[2022-12-17 10:43] LABS: Basophils # (A) 0.08 X 10*3/uL (0.00-0.10); Basophils % (A) 0.4 %; Eosinophils # (A) 0.24 X 10*3/uL (0.04-0.35); Eosinophils % (A) 1.3 %; HCT 37.7 % (39.6-50.0); HGB 11.9 g/dL (13.0-17.0); Immature Grans, Automated 0.5 %; Lymphocytes # (A) 1.81 X 10*3/uL (0.90-5.00); MCH 29.2 pg (27.0-32.0); MCHC 31.6 g/dL (32.0-37.0); MCV 92.4 fL (80.0-97.0); Mean Platelet Volume 9.5 fL (9.5-12.2); Monocytes # (A) 1.11 X 10*3/uL (0.20-1.00); Monocytes % (A) 6.1 %; NRBC Per 100 WBC 0 /100 WBCS (0.0-0.0); Neutrophils % (A) 81.7 %; Platelet Count 286 X 10*3/uL (140-440); RBC 4.08 X 10*6/uL (4.40-5.60); RDW 13.3 % (11.5-14.5); WBC 18.13 X 10*3/uL (4.50-10.00)
[2022-12-17 11:08] LABS: African American GFR (CKD) 122.3 (60.0-200.0); Albumin 3.5 g/dL (3.8-4.9); Albumin/Globulin Ratio 1.22 (1.60-3.17); BUN/Creat Ratio 27.05 Ratio (12.00-20.00); Blood Urea Nitrogen 16.5 mg/dL (9.0-27.0); Calcium 11.7 mg/dL (8.7-10.3); Globulin 2.9 g/dL (1.6-3.3); Non-African American GFR(CKD) 105.5 (60.0-200.0); Total Bilirubin 0.6 mg/dL (0.30-1.20); Total Protein 6.4 g/dL (6.2-8.2)
[2022-12-17] MEDS: CLINDAMYCIN 600 MG in DEXTROSE 5% IN WATER 50 ML IVPB SCH ×2 (18:32)
[2022-12-17] MEDS: DEXTROSE 5%-0.9% NACL 1,000 ML IV SCH (18:49)
[2022-12-17] MEDS: FAMOTIDINE 20 MG/2 ML VIAL IV SCH (20:26)
[2022-12-17] MEDS: HEPARIN SODIUM,PORCINE/PF 5,000 UNIT/0.5 ML SYRINGE SQ SCH (20:26)
[2022-12-17] MEDS: LORazepam 0.5 MG TAB PO PRN (22:23)
[2022-12-18] MEDS: CLINDAMYCIN 600 MG in DEXTROSE 5% IN WATER 50 ML IVPB SCH ×6 (00:24→12:28)
--- NOTE | 2022-12-18 08:34 | P.CONS ---
History of Present Illness - Reason for Consult Consult date: 12/17/22 neck mass Requesting physician: Eric Pepe - Chief Complaint neck mass - History of Present Illness Patient is a 62 year old male with past medical history of Hyperlipidemia, Hypertension, and dementia. Patient was transferred from [facility] where he presented for worsening right-sided neck mass. Patient reports mass has been progressively worsening over the last few months. Sister brought him to ER when she began noticing worsening in his speech and decreased oral intake. Denies SOB, chest pain, dizziness or weakness or numbness, vomiting diarrhea, or abdominal pain. Smoker about 1 pack per day, reports quitting, he was counseled to quit and he a grees to the nicotine patch. He denies alcohol or illicit drugs. CT soft tissue of neck with and without contrast at [facility] was reviewed, reports large heterogeneous enhancing mass involving at least two thirds of the tongue with extension into the right submandibular mass at the parapharyngeal, rotated sublingual and masseteric spaces measuring up to 12.2 by 8.6 x 5.8 cm. There is partial effacement of the right oropharynx. Findings suggestive of squamous cell carcinoma versus lymphoma. Enlarged right submandibular and right supraclavicular lymph node likely representing metastasis. 3. there is occlusion of severe narrowing of the right internal jugular vein due to mass effect or inversion from #1 CXR showed no acute cardiopulmonary processes. Review of Systems 10 point ROS negative except as stated in the HPI Past Medical History Past Medical History: Hyperlipidemia, Hypertension, Skin Disorder Additional Past Medical History / Comment(s): migraines, CHRONIC BACK PAIN History of Any Multi-Drug Resistant Organisms: None Reported Past Surgical History: Orthopedic Surgery Additional Past Surgical History / Comment(s): arthroscopy rt knee, eulalio cataracts, carpal tunnel left hand and elbow, pain clinic procedures Past Anesthesia/Blood Transfusion Reactions: No Reported Reaction Past Psychological History: No Psychological Hx Reported Smoking Status: Current every day smoker Past Alcohol Use History: Heavy Additional Past Alcohol Use History / Comment(s): smokes 3/4 PPD since age 13, past ETOH Past Drug Use History: None Reported - Past Family History Mother Family Medical History: Cancer Medications and Allergies Home Medications Medication Instructions Recorded Confirmed Type Ibuprofen [Motrin Ib] 400 mg PO Q8H PRN 12/16/22 12/16/22 History Thiamine [Vitamin B-1] 100 mg PO DAILY 12/16/22 12/16/22 History Allergies Allergy/AdvReac Type Severity Reaction Status Date / Time metoclopramide [From Reglan] AdvReac JERKING Verified 12/16/22 19:47 AND SHAKING Penicillins AdvReac Rash/Hives/ Verified 12/16/22 19:47 swelling ants Allergy Rash/Hives Uncoded 10/13/19 12:42 Physical Exam Vitals: Vital Signs Temp Pulse Resp BP Pulse Ox 12/17/22 09:38 18 12/17/22 07:38 98.0 F 81 18 95/66 96 12/17/22 04:56 76 18 101/76 97 12/17/22 01:27 68 18 106/71 98 12/16/22 21:03 67 18 102/62 97 12/16/22 18:59 97.5 F L 66 18 111/71 100 Intake and Output 12/16/22 12/17/22 12/17/22 22:59 06:59 14:59 Other: Voiding Method Toilet Weight 72.575 kg 72.575 kg - Constitutional General appearance: cooperative, no acute distress, thin - EENT Eyes: anicteric sclerae, EOMI ENT: hearing grossly normal - Neck approx 3-4 inch hardened fixed mass of right side of neck - Respiratory breathing is even and unlabored - Cardiovascular skin warm and dry leg Peripheral Edema: bilateral: None - Gastrointestinal General gastrointestinal: no absent bowel sounds, no decreased bowel sounds, no distended, no hepatomegaly, no hyperactive bowel sounds, normal bowel sounds, no organomegaly, no rigid, no scaphoid, soft, no splenomegaly, no tenderness, no umbilical hernia, no ventral hernia - Integumentary Integumentary: normal - Neurologic speech is slurred, making it difficult to understand pt, likely r/t mass of right neck, as mass was shown to be affecting tongue on CT. Otherwise no focal deficits present - Musculoskeletal Musculoskeletal: strength equal bilaterally - Psychiatric Psychiatric: A&O x's 3, appropriate affect, intact judgment & insight Results CBC & Chem 7: 12/17/22 06:31 12/17/22 06:31 Labs: Abnormal Lab Results - Last 24 Hours (Table) 12/17/22 12/17/22 12/17/22 Range/Units 06:31 06:31 06:31 WBC 18.13 H (4.50-10.00) X 10*3/uL RBC 4.08 L (4.40-5.60) X 10*6/uL Hgb 11.9 L (13.0-17.0) g/dL Hct 37.7 L (39.6-50.0) % MCHC 31.6 L (32.0-37.0) g/dL Immature Gran # 0.09 H (0.00-0.04) X 10*3/uL Neutrophils # 14.80 H (1.80-7.70) X 10*3/uL Monocytes # 1.11 H (0.20-1.00) X 10*3/uL BUN/Creatinine Ratio 27.05 H (12.00-20.00) Ratio Calcium 11.7 H (8.7-10.3) mg/dL AST 13 L (14-35) U/L ALT 8 L (10-49) U/L Albumin 3.5 L (3.8-4.9) g/dL Albumin/Globulin Ratio 1.22 L (1.60-3.17) g/dL Procalcitonin 0.16 H (0.02-0.09) ng/mL Comments: CT neck from outside hospital report reviewed Chest x-ray: report reviewed (ct neck soft tissue ) Assessment and Plan (1) Neck mass Current Visit: Yes Status: Acute Code(s): R22.1 - LOCALIZED SWELLING, MASS AND LUMP, NECK SNOMED Code(s): 853385998 Plan: Neck mass: -CT soft tissue of neck is worrisome for metastatic disease -Discussed CT results with pt and the need for further workup with biopsy. Patient stated that he does not want any biopsies, chemotherapy or any palliative or comfort care. Patient states "I will be fine". It was explained to patient that this this is cancer which should likely is based on presentation and scan that he will likely from this without any further treatment or intervention. Patient verbalized understanding and again reiterated that he does not want any further testing or treatment. -I spoke with Sister of the patient after the visit and discussed with her the patient's wishes. She states that he does make his own medical decisions for himself at this time but she is currently working on becoming DPOA, as he has a history of dementia. She states that she will speak to the patient today regarding his wishes. I instructed her that if her and the patient wanted a f amily meeting with our team to further discuss care options that we could schedule a family meeting and to let the nurse know to get in contact with our office so we can set that up. Sister was agreeable with plan. Attests: I have seen and examined pt, performed H&P, developed impression and plan of care. Discussed with dictator. Agree with documentation, dictated as a scribe Time with Patient: Greater than 30
[2022-12-18 09:39] LABS: Basophils # (A) 0.06 X 10*3/uL (0.00-0.10); Basophils % (A) 0.4 %; Eosinophils # (A) 0.19 X 10*3/uL (0.04-0.35); Eosinophils % (A) 1.3 %; HCT 35.7 % (39.6-50.0); HGB 11.3 g/dL (13.0-17.0); Immature Grans, Automated 0.5 %; Lymphocytes # (A) 1.38 X 10*3/uL (0.90-5.00); Lymphocytes % (A) 9.1 %; MCH 28.8 pg (27.0-32.0); MCHC 31.7 g/dL (32.0-37.0); MCV 91.1 fL (80.0-97.0); Mean Platelet Volume 9.6 fL (9.5-12.2); Monocytes # (A) 1.02 X 10*3/uL (0.20-1.00); Monocytes % (A) 6.7 %; NRBC Per 100 WBC 0 /100 WBCS (0.0-0.0); Neutrophils # (A) 12.43 X 10*3/uL (1.80-7.70); Platelet Count 268 X 10*3/uL (140-440); RBC 3.92 X 10*6/uL (4.40-5.60); RDW 13.2 % (11.5-14.5); WBC 15.16 X 10*3/uL (4.50-10.00)
[2022-12-18] MEDS: HEPARIN SODIUM,PORCINE/PF 5,000 UNIT/0.5 ML SYRINGE SQ SCH (10:07)
[2022-12-18] MEDS: FAMOTIDINE 20 MG/2 ML VIAL IV SCH (10:07)
[2022-12-18] MEDS: PANTOPRAZOLE 40 MG/10 ML VIAL IV SCH (10:08)
[2022-12-18] MEDS: NICOTINE 21MG/24HR PATCH TRANSDERM SCH (10:08)
--- NOTE | 2022-12-18 11:25 | FL ---
EXAMINATION TYPE: FL barium swallow w video DATE OF EXAM: 12/18/2022 CLINICAL HISTORY: 62-year-old male with neck masses, gurgling at the bedside, assess for aspiration. TECHNIQUE: Deglutition study is performed utilizing thin liquid barium, honey and nectar thick liqui d barium, barium thick pudding. Total fluoroscopy time: 1 minute 52 seconds. Total images: None. Real-time fluoroscopy support was provided to speech pathology. COMPARISON: None. FINDINGS: Swallow initiation was mildly delayed with bolus free spilling to the level of the vallecula. Soft t issue fullness in the region of the hypopharynx compatible with underlying neck masses. The oral and pharyngeal phases otherwise show satisfactory initiation and propagation with all modalities tested. There is transient penetration with larger boluses of thin liquids. No other evidence of penetration or aspiration with any modality tested. Mild residuals along the vallecular space, piriform sinuses, and posterior pharyngeal wall. IMPRESSION: Mild transient penetration with larger boluses of thin liquids. No other penetration or aspiration. M ild swallow delay and mild residuals. Solids were not assessed due to patient's condition. Please refer to speech therapist notes for further details if necessary.
--- NOTE | 2022-12-18 11:38 | P.CNPUL ---
History of Present Illness Consult date: 12/18/22 Chief complaint: Neck mass History of present illness: 62-year-old male patient, presented to us for a large head and neck masses. The patient is extremely debilitated, malnourished and he does have history of alcohol abuse, dementia, hypertension hyperlipidemia. He was initially seen at [facility] for a right sided neck mass that has been going over the years. Apparently this mass has been progressively getting worse and the patient started having difficulties with speech and swallowing. End up coming to the hospital and he was transferred to us. A CAT scan of the neck was done and it showed a heterogeneous enhancing mass involving the two thirds of the tongue with extension into the right submandibular area and also involving the parapharyngeal space causing mass effect on this patient's airway. The patient's masses around 12.2 x 8.6 x 5.8 cm in size and there is also partial effacement of the right hypopharynx. The cords and the upper trachea seemed to be quite patent at this point in time. The patient also had enlargement of the right submandibular and right supraclavicular nodes suggestive of metastases. The tumor can be seen on the lateral aspect of his tongue on physical examination. He is laying down comfortably in bed. He underwent a swallow evaluation today which she passed without any aspiration. No stridors. No drooling. No signs of respiratory distress. ENT signed off his case and made recommendations to transfer him to a tertiary care center such as [facility] and the rate was of being made. No aspiration. No fever. Review of Systems Constitutional: Reports fatigue, Reports poor appetite, Reports weakness, Reports weight loss Eyes: denies as per HPI, denies blurred vision, denies bulging eye, denies dec reased vision, denies diplopia, denies discharge, denies dry eye, denies irritation, denies itching, denies pain, denies photophobia, denies loss of peripheral vision, denies loss of vision, denies tunnel vision/blind spots Ears: deny: decreased hearing, ear discharge, earache, tinnitus Ears, nose, mouth and throat: Reports neck fullness/pressure, Reports neck lump, Reports sore throat, Reports voice changes Breasts: absent: as per HPI, gynecomastia Cardiovascular: Reports as per HPI Respiratory: Reports as per HPI Gastrointestinal: Reports loss of appetite Genitourinary: Reports as per HPI Musculoskeletal: Reports as per HPI Musculoskeletal: absent: ankle pain, ankle stiffness, ankle swelling, as per HPI, elbow pain, elbow stiffness, elbow swelling, foot pain, foot stiffness, foot swelling, hand pain, hand stiffness, hand swelling, hip pain, hip stiffness, hip swelling, knee pain, knee stiffness, knee swelling, shoulder pain, shoulder stiffness, shoulder swelling, wrist pain, wrist stiffness, wrist swelling Integumentary: Reports as per HPI Neurological: Reports as per HPI Psychiatric: Reports as per HPI Endocrine: Reports as per HPI Hematologic/Lymphatic: Reports as per HPI Allergic/Immunologic: Reports as per HPI Past Medical History Past Medical History: Hyperlipidemia, Hypertension, Skin Disorder Additional Past Medical History / Comment(s): migraines, CHRONIC BACK PAIN History of Any Multi-Drug Resistant Organisms: None Reported Past Surgical History: Orthopedic Surgery Additional Past Surgical History / Comment(s): arthroscopy rt knee, eulalio cataracts, carpal tunnel left hand and elbow, pain clinic procedures Past Anesthesia/Blood Transfusion Reactions: No Reported Reaction Past Psychological History: No Psychological Hx Reported Smoking Status: Current every day smoker Past Alcohol Use History: Heavy Additional Past Alcohol Use History / Comment(s): smokes 3/4 PPD since age 13, past ETOH Past Drug Use History: None Reported - Past Family History Mother Family Medical History: Cancer Medications and Allergies Home Medications Medication Instructions Recorded Confirmed Type Ibuprofen [Motrin Ib] 400 mg PO Q8H PRN 12/16/22 12/16/22 History Thiamine [Vitamin B-1] 100 mg PO DAILY 12/16/22 12/16/22 History Allergies Allergy/AdvReac Type Severity Reaction Status Date / Time metoclopramide [From Reglan] AdvReac JERKING Verified 12/16/22 19:47 AND SHAKING Penicillins AdvReac Rash/Hives/ Verified 12/16/22 19:47 swelling ants Allergy Rash/Hives Uncoded 10/13/19 12:42 Physical Exam Vitals: Vital Signs Temp Pulse Resp BP Pulse Ox 12/18/22 08:15 98.6 F 70 16 104/61 95 12/18/22 02:57 98.5 F 116 H 20 99/69 95 12/17/22 23:42 69 15 99 12/17/22 20:23 98.5 F 66 17 106/61 99 12/17/22 20:00 66 17 12/17/22 15:05 97.2 F L 77 17 99/66 97 Intake and Output 12/17/22 12/18/22 12/18/22 22:59 06:59 14:59 Intake Total 860 0 Balance 860 0 Intake: IV 10 0 Dextrose 5%-0.9% NaCl 1, 0 000 ml @ 50 mls/hr IV . Q20H [facility] Rx#:[id number] Invasive Line 1 10 Intake, IV Titration 850 Amount Levofloxacin 500Mg-D5w 100 Pmx 500 mg In Dextrose/ Water 1 100ml.bag @ 100 mls/hr IVPB Q24H [facility] Rx#: [id number] Sodium Chloride 0.9% 1, 750 000 ml @ 75 mls/hr IV . [id number] [facility] Rx#:[id number] Other: Voiding Method Toilet Urinal The patient is currently calm and comfortable on room air oxygen. The patient is extremely main CHF, malnourished and looks cachectic. He is comfortable. Breathing is nonlabored. Head exam was generally normal. There was no scleral icterus or corneal arcus. Mucous membranes were moist. Examination of the neck shows a fairly firm and large bulge over the right neck area extending to the submandibular area. He also has lymphadenopathy in the supraclavicular area. At the same time, the tongue is quite swollen and there is a tumor growing along the lateral aspect of the right tongue. The patient is unable to open his mouth completely and the posterior oropharynx cannot be accurately visualized on bedside examination. No stridor on today's examination. Lungs were clear to auscultation and percussion, and with normal diaphragmatic excursion. No wheezes or rales were noted. Cardiac exam revealed the PMI to be normally situated and sized. The rhythm was regular and no extrasystoles were noted during several minutes of auscultation. The first and second heart sounds were normal and physiologic splitting of the second heart sound was noted. There were no murmurs, rubs, clicks, or gallops. Abdominal exam revealed normal bowel sounds. The abdomen was soft, non-tender, and without masses, organomegaly, or appreciable enlargement of the abdominal a chang. Examination of the extremities revealed easily palpable radial, femoral and pedal pulses. There was no cyanosis, clubbing or edema. Examination of the skin revealed no evidence of significant rashes, suspicious appearing nevi or other concerning lesions. Results - Laboratory Findings CBC and BMP: 12/18/22 06:28 12/17/22 06:31 Abnormal lab findings: Abnormal Labs 12/17/22 12/17/22 12/17/22 06:31 06:31 06:31 WBC 18.13 H RBC 4.08 L Hgb 11.9 L Hct 37.7 L MCHC 31.6 L Immature Gran # 0.09 H Neutrophils # 14.80 H Monocytes # 1.11 H BUN/Creatinine Ratio 27.05 H Calcium 11.7 H AST 13 L ALT 8 L Albumin 3.5 L Albumin/Globulin Ratio 1.22 L Procalcitonin 0.16 H 12/18/22 06:28 WBC 15.16 H RBC 3.92 L Hgb 11.3 L Hct 35.7 L MCHC 31.7 L Immature Gran # 0.08 H Neutrophils # 12.43 H Monocytes # 1.02 H BUN/Creatinine Ratio Calcium AST ALT Albumin Albumin/Globulin Ratio Procalcitonin - Diagnostic Findings Chest x-ray: image reviewed Assessment and Plan Plan: Neck she over with a fairly large mass enlarging over the years measuring 12.2 x 8.6 x 5.8 cm and involving two thirds of the tongue and extending into the parapharyngeal space causing mass effect on the hypopharynx with significant effacement and mass effect. There is also lymphadenopathy in the submandibular and supraclavicular area. The tumor is visualized on examination involving the tongue. No stridor. No signs of any respiratory distress. Weight loss in order of 40 pounds secondary to above. He looks quite cachectic with a body mass index of 27.5 History of smoking Hypertension Hyperlipidemia Plan I think the patient's airways adequate for now. Nevertheless, it is clear to me that the patient will ultimately need a tracheostomy tube to secure his airway specially if he is going to undergo a further interventions or biopsies and/or treatments regarding this neck tumor. As such, and airway needs to be secured down the road. I understand that our ENT physicians did not see the patient here in the hospital and that made recommendations for an immediate transfer. I think the patient is stable to get transferred. I have spoken with the sister and the patient and I told them that a tracheostomy is going to be needed and this can be done either here in our hospital if our ENT physicians are willing to do or if can be done at [facility] or any other tertiary care center. In my opinion, the patient is stable for transfer for now. He is able to swallow. No drooling. No stridor. No signs of acute respiratory compromise. I cleared him for transfer for the time being. Do not see the need for intubation.
[2022-12-18 12:06] LABS: African American GFR (CKD) 115.6 (60.0-200.0); Blood Urea Nitrogen 14.7 mg/dL (9.0-27.0); Calcium 11.5 mg/dL (8.7-10.3); Non-African American GFR(CKD) 99.7 (60.0-200.0); Potassium 3.9 mmol/L (3.5-5.5)
[2022-12-18] MEDS ORDERED: ALPRAZolam 0.5 MG TAB PO PRN (15:25)
[2022-12-18] MEDS: DEXTROSE 5%-0.9% NACL 1,000 ML IV SCH (17:04)
[2022-12-18 17:39] VITALS: BP 94/62; PULSE 92; RESP 19; TEMP 97.9
[2022-12-18] MEDS: LORazepam 0.5 MG TAB PO PRN (18:20)
--- NOTE | 2022-12-18 20:44 | P.DS ---
Providers Date of admission: 12/16/22 19:30 Attending physician: Milan Carrasco MD Consults: 12/16/22 19:30 Consult Physician Urgent Consulting Provider: Prashant Leon Consult Reason/Comments: neck mass Do you want consulting provider notified?: Yes Consult Physician Urgent Consulting Provider: Rafael Bryan Consult Reason/Comments: neck mass Do you want consulting provider notified?: Yes 12/17/22 15:46 Consult Physician Urgent Consulting Provider: Sourav Gloria Consult Reason/Comments: assessing airway , neck mass Do you want consulting provider notified?: Yes Primary care physician: Easton Keenan [facility] Course: Diagnoses: -worsening right side Neck/oral cavity mass concerning for lymphoma versus carcinoma, associated with right submandibular and right supraclavicular lymph adenopathy, With possible soft tissue infection with leukocytosis -Possible aspiration pneumonia, he was placed on antibiotic with the clindamycin -hypercalcemia -Dehydration mild and improving -Nicotine dependence -known history of noncompliance -Hypertension -Hyperlipidemia -Chronic back pain -History of migraine Hospital course: This is a pleasant 62 years old male with past medical history of Hyperlipidemia, Hypertension, Skin Disorder, migraines, CHRONIC BACK PAIN. He is a patient of Dr. Mcbride Patient initially presents to [facility] with worsening neck mass over the last 2 weeks. Associated with poor oral intake and speaking difficulty. Patient also was known for history of noncompliance and not following up with his appointments He was recently admitted to [facility] less than one month ago for altered mental status, suicidal ideation and he was cleared by psychiatrist and cleared for discharge He presents because of worsening large mass, patient states to get worse over the last 1-2 days, this morning he was looking comfortable lying down in bed, he was talking easily, he was able to eat soft diet in front of me with no difficulty. He has large mass around right jaw angle about 3-4 inches in diameter which looks warm but no redness, mild tenderness. He cannot open his mouth all the way PATIENT does not seem to be in respiratory distress with no breathing difficulty when I saw him. He has some swallowing problems. Patient made nothing by mouth. ENT physician did not see the patient but recommended to transfer to tertiary care center at [facility]. As per my discussion with her before team and Dr. Carey he accepted the patient wanted pulmonary team to evaluate him prior to be transferred to assess for his airway. Dr. Gloria saw the patient today and cleared for transfer as benefits more than risk. Patient currently is stable to be transferred to her before the hospital and guarded prognosis Physical exam GENERAL: The patient is alert and oriented x3, not in any acute distress. Well developed, well nourished. -HEENT: Pupils are round and equally reacting to light. EOMI. No scleral icterus. No conjunctival pallor. Normocephalic, atraumatic. No pharyngeal erythema. No thyromegaly. Right sided neck mass around the right ankle about 3- 4 inches in diameter, look swollen tender but no erythema CARDIOVASCULAR: S1 and S2 present. No murmurs, rubs, or gallops. PULMONARY: Chest is clear to auscultation, no wheezing or crackles. ABDOMEN: Soft, nontender, nondistended, normoactive bowel sounds. No palpable organomegaly. MUSCULOSKELETAL: No joint swelling or deformity. EXTREMITIES: No cyanosis, clubbing, or pedal edema. NEUROLOGICAL: Gross neurological examination did not reveal any focal deficits. SKIN: No rashes. no petechiae. Time spent more than 35 minutes Patient Condition at Discharge: Serious Plan - Discharge Summary Discharge Rx Participant: No New Discharge Prescriptions: No Action Ibuprofen [Motrin Ib] 400 mg PO Q8H PRN PRN Reason: Pain Or Fever > 100.5 Thiamine [Vitamin B-1] 100 mg PO DAILY Discharge Medication List Ibuprofen [Motrin Ib] 400 mg PO Q8H PRN 12/16/22 [History] Thiamine [Vitamin B-1] 100 mg PO DAILY 12/16/22 [History] Follow up Appointment(s)/Referral(s): Easton Alex MD [Primary Care Provider] - 1-2 days Discharge Disposition: OTHER INSTITUTION NOT DEFINED
== END 2022-12-18 18:16 | disposition short-term general hospital (02) | DRG 840 ==
LOC: EC 18:39 → 5NMEDONC 19:30 → 4SSUR 12-17 04:44
PROVIDERS: ADMIT Internal Medicine; ATTEND Internal Medicine
DX: C85.91 Non-Hodgkin lymphoma, unspecified, lymph nodes of head, face, and neck (principal); J69.0 Pneumonitis due to inhalation of food and vomit; E46 Unspecified protein-calorie malnutrition; L08.9 Local infection of the skin and subcutaneous tissue, unspecified; E83.52 Hypercalcemia; E86.0 Dehydration; Z20.822 Contact with and (suspected) exposure to COVID-19; Z68.27 Body mass index [BMI] 27.0-27.9, adult; R63.4 Abnormal weight loss; F17.210 Nicotine dependence, cigarettes, uncomplicated; Z71.6 Tobacco abuse counseling; G43.909 Migraine, unspecified, not intractable, without status migrainosus; G89.29 Other chronic pain; M54.9 Dorsalgia, unspecified; F10.10 Alcohol abuse, uncomplicated; I10 Essential (primary) hypertension; Z53.9 Procedure and treatment not carried out, unspecified reason; Z91.199 Patient's noncompliance with other medical treatment and regimen due to unspecified reason; E78.5 Hyperlipidemia, unspecified
CPT/HCPCS: 74230; 80048; 80053; 84145; 85025; 87040; 87635; 93005; 96360; 96361; 99285